=== PATIENT | female | born 1955 | race Caucasian/White ===

== ENCOUNTER → 2018-05-11 06:47 | Outpatient (CLI) | payer BC, SELFPAY ==
--- NOTE | 2018-05-11 06:51 | CT_ITS ---
HISTORY: FRONTAL SINUSITISFREQUENT INFECTIONS-WORSE SINCE OCTOBERDRAINAGE/CONGESTIONTAKES ALLERGY SHOTS TECHNIQUE: Helically acquired images were obtained of the paranasal sinuses. A radiation dose optimization technique was used for this scan. IV Contrast dosage and agent: None. COMPARISON: None FINDINGS: The paranasal sinuses are well developed and are clear. The ostiomeatal units are patent. The nasal septum shows no significant deformity. Nasal turbinates are unremarkable. The mastoids and middle ear cavities appear clear. Hyperostosis frontalis interna. CT/Sinus/Facial Bone IMPRESSION: Normal paranasal sinuses. Individualized dose optimization techniques were used for this CT. at 0725 Reported and signed by: Arnol Chowdhury MD Electronically Signed: Arnol Chowdhury, at 7:23 EST Tel , Service support ,
== END ==
PROVIDERS: Family Provider Student in an Organized Health Care Education/Training Program; PCP Student in an Organized Health Care Education/Training Program; Referring Provider Otolaryngology Otolaryngology/Facial Plastic Surgery; Visit Provider Otolaryngology Otolaryngology/Facial Plastic Surgery
DX: J32.9 Chronic sinusitis, unspecified (principal)
CPT/HCPCS: 70486

== ENCOUNTER → 2021-11-22 | Outpatient (CLI) | payer BC, SELFPAY ==
[2021-11-22 09:50] LABS: Hematocrit 44.7 % (37-47); Hemoglobin 15.6 g/dL (12.0-15.0); Mean Corp Hgb Conc 34.9 g/dL (32-36); Mean Corpuscular Hgb 32.1 pg (27.0-32.0); Mean Platelet Vol. 8.6 fl (6.2-12.0); Platelet Count 263 K/mm3 (150-450); RBC Distribution Width CV 11.8 % (11.6-14.6); RBC Distribution Width SD 40.2 fl (35.1-43.9); Red Blood Count 4.86 M/mm3 (4.2-5.4); White Blood Count 8.8 K/mm3 (4.4-11.0)
[2021-11-22 10:22] LABS: ALB/GLOB Ratio 1.2 RATIO (0.9-2.4); AST(SGOT) 32 U/L (15-37); Alanine Aminotransfer ALT/SGPT 34 U/L (13-56); Albumin, Serum 3.7 g/dL (3.2-5.0); Alkaline Phosphatase 142 U/L (45-117); Anion Gap 7 (5-15); BUN 21 mg/dL (7-18); Calcium,Total 8.8 mg/dL (8.5-10.1); Chloride 105 mmol/L (98-107); Creatinine, Serum 0.81 mg/dL (0.55-1.02); EST Glomerular Filtration Rate 75 mL/min (>60); Est Glom Filt Rate - Afr Amer 91 mL/min (>60); Globulin 3.2 g/dL (2.2-4.2); Glucose 127 mg/dL (74-106); Potassium 4.1 mmol/L (3.5-5.1); Protein, Total 6.9 g/dL (6.4-8.2); Sodium Level 139 mmol/L (136-145)
[2021-11-22 10:29] LABS: Carbamazepine (Tegretol) 8.4 ug/mL (4.0-12.0)
[2021-11-22 10:33] LABS: Vitamin D,25 Hydroxy 102.4 ng/mL
== END | disposition home or self-care (01) ==
LOC: LAB 09:15
PROVIDERS: PCP Student in an Organized Health Care Education/Training Program; Referring Provider Nurse Practitioner Family; Visit Provider Nurse Practitioner Family
DX: G50.0 Trigeminal neuralgia (principal); E55.9 Vitamin D deficiency, unspecified
CPT/HCPCS: 36415; 80053; 80156; 82306; 85027

== ENCOUNTER → 2022-11-12 | Outpatient (CLI) | payer BC, SELFPAY ==
[2022-11-12 10:30] LABS: Hematocrit 44.6 % (37-47); Hemoglobin 15.4 g/dL (12.0-15.0); Mean Corp Hgb Conc 34.5 g/dL (32-36); Mean Corpuscular Volume 92.5 fL (81-99); Mean Platelet Vol. 8.8 fl (6.2-12.0); Platelet Count 271 K/mm3 (150-450); RBC Distribution Width CV 11.7 % (11.6-14.6); RBC Distribution Width SD 40.2 fl (35.1-43.9); Red Blood Count 4.82 M/mm3 (4.2-5.4); White Blood Count 7.5 K/mm3 (4.4-11.0)
[2022-11-12 11:06] LABS: ALB/GLOB Ratio 1.3 RATIO (0.9-2.4); AST(SGOT) 29 U/L (15-37); Alanine Aminotransfer ALT/SGPT 30 U/L (13-56); Albumin, Serum 3.8 g/dL (3.2-5.0); Alkaline Phosphatase 129 U/L (45-117); BUN 15 mg/dL (7-18); Calcium,Total 9.3 mg/dL (8.5-10.1); Creatinine, Serum 0.75 mg/dL (0.55-1.02); EST Glomerular Filtration Rate 82 mL/min (>60); Est Glom Filt Rate - Afr Amer 99 mL/min (>60); Globulin 2.9 g/dL (2.2-4.2); Glucose 104 mg/dL (74-106); Protein, Total 6.7 g/dL (6.4-8.2); Sodium Level 141 mmol/L (136-145)
[2022-11-12 11:07] LABS: Anion Gap 6 (5-15); Chloride 109 mmol/L (98-107)
[2022-11-12 11:18] LABS: Carbamazepine (Tegretol) 8.6 ug/mL (4.0-12.0)
[2022-11-13 13:08] LABS: Vitamin D 1,25-Dihydroxy 40.6 pg/mL (24.8-81.5)
== END | disposition home or self-care (01) ==
LOC: MTLAB 09:11
PROVIDERS: PCP Student in an Organized Health Care Education/Training Program; Referring Provider Psychiatry & Neurology Neurology; Visit Provider Psychiatry & Neurology Neurology
DX: G50.0 Trigeminal neuralgia (principal); Z86.39 Personal history of other endocrine, nutritional and metabolic disease
CPT/HCPCS: 36415; 80053; 80156; 82652; 85027

== ENCOUNTER → 2024-02-09 | Outpatient (CLI) | payer BC, SELFPAY ==
[2024-02-09 10:13] LABS: Hematocrit 47.7 % (37-47); Hemoglobin 16.4 g/dL (12.0-15.0); Mean Corp Hgb Conc 34.4 g/dL (32-36); Mean Corpuscular Hgb 31.8 pg (27.0-32.0); Mean Corpuscular Volume 92.6 fL (81-99); Mean Platelet Vol. 9.1 fl (6.2-12.0); Platelet Count 248 K/mm3 (150-450); RBC Distribution Width CV 11.7 % (11.6-14.6); RBC Distribution Width SD 40.1 fl (35.1-43.9); Red Blood Count 5.15 M/mm3 (4.2-5.4); White Blood Count 9.5 K/mm3 (4.4-11.0)
[2024-02-09 11:18] LABS: ALB/GLOB Ratio 1.1 RATIO (0.9-2.4); AST(SGOT) 23 U/L (15-37); Alanine Aminotransfer ALT/SGPT 24 U/L (13-56); Alkaline Phosphatase 151 U/L (45-117); Anion Gap 7 (5-15); BUN 19 mg/dL (7-18); BUN/Creat Ratio 21.9 RATIO (10-20); Calcium,Total 9.5 mg/dL (8.5-10.1); Chloride 105 mmol/L (98-107); Creatinine, Serum 0.87 mg/dL (0.55-1.02); EST Glomerular Filtration Rate 69 mL/min (>60); Est Glom Filt Rate - Afr Amer 83 mL/min (>60); Globulin 3.8 g/dL (2.2-4.2); Glucose 117 mg/dL (74-106); Potassium 4.4 mmol/L (3.5-5.1); Protein, Total 7.8 g/dL (6.4-8.2); Sodium Level 137 mmol/L (136-145)
[2024-02-09 12:13] LABS: Carbamazepine (Tegretol) 9.3 ug/mL (4.0-12.0)
== END | disposition home or self-care (01) ==
PROVIDERS: PCP Student in an Organized Health Care Education/Training Program; Referring Provider Psychiatry & Neurology Neurology; Visit Provider Psychiatry & Neurology Neurology
DX: G50.0 Trigeminal neuralgia (principal)
CPT/HCPCS: 36415; 80053; 80156; 85027

== ENCOUNTER 2024-12-07 21:26 | Emergency (ER) | payer OTHER, BC, SELFPAY ==
[2024-12-07 21:27] VITALS: BP 181/88; PULSE 79; RESP 18; TEMP 36.8; O2SAT 98
--- NOTE | 2024-12-07 21:31 | ED.RN ---
arm wrapped with ABD pad and walter bandage in triage.
[2024-12-07 23:28] VITALS: BMI 22.8
--- OUTSIDE RECORDS SUMMARY | 2024-12-08 00:22 | XMS RPT_ITS | CCD ---
Author Organization [facility] Inform ion Partnership [facility] Care Team Providers Care Bleacher Lard Name Role Phone Brandon Boland DO Primary Care Provider [phone] Brandon Boland Referring Unavailable Boland, Brandon Primary Care Unavailable Baddour, Mic Attending Unavailable Boland, Brandon Primary Care Unavailable Baddour, Mic Attending Unavailable Boland, Brandon Referring Unavailable Boland, Brandon Primary Care Unavailable Wilfredur Mic Referring Unavailable Jo, Mic Attending Unavailable Brandon Boland DO Primary Care Provider Ángel MARKET RISK SPECIALIST.Ana WHITE Unavailable Linda MARKET RISK SPECIALIST.Juanita WHITE Unavailable BRANDON BOLAND L Referring Unavailable BOLAND, BRANDON L Primary Care Unavailable BOLAND, BRANDON L Referring Unavailable BOLNAD, BRANDON L Primary Care Unavailable BOLAND, BRANDON L Attending Unavailable BOLAND, BRANDON L Primary Care Unavailable BOLAND, BRANDON L Referring Unavailable BOLAND, BRANDON L Primary Care Unavailable BOLAND, BRANDON L Attending Unavailable BOLAND, BRANDON L Primary Care Unavailable BOLAND, BRANDON L Attending Unavailable BOLAND, BRANDON L Primary Care Unavailable Allergies Allergy Classification Reported Allergen(s) Allergy Type Date of Onset Reaction(s) Facility (20 sources) Seasonal allergy; Translations: [SEASONAL ALLERGIES] Propensity to adverse reactions 3 Other: See Comments [facility] Work Phone: Medications Current Medications Medication Drug Class(es) Dates Sig (Normalized) Sig (Original) aspirin 81 mg oral tablet (20 sources) Platelet Aggregation Inhibitor, Nonsteroidal Anti-inflammatory Drug Start: 09-11-2020 take 1 tablet by mouth once daily aspirin 81 mg tablet Active 81 MG PO DAILY September 11, 2020 11:19am Start: 01-17-2014 take 1 tablet by sima th once daily aspirin, enteric coated (ASPIRIN LOW DOSE) 81 mg EC tablet Take 1 tablet by mouth once daily. 0 01/17/2014 Active Comment on above: Take 1 tablet by sima once daily. azelastine hydrochloride 0.137 mg/actuat metered dose nasal spray (20 sources) Histamine-1 Receptor Antagonist Start: 1 End: 5 take 1 spray(s) nasal route twice daily azelastine 0.1% nasal spray Indications: Chronic otitis media of both ears with effusion Use 1 Excel in each nostril two times a day. 30 mL 2 08/31/2024 Active Comment on above: Use 1 Excel in each nostril twice daily. Use 1 Excel in each nostril two times a day. carBAMazepine 200 mg oral tablet (20 sources) Mood Stabilizer Start: 1 End: 2 take 200 mg by mouth twice daily Carbamazepine Active 200 MG PO TWICE A DAY 60 August 15, 2021 11:34am take 1 capsule by mo [facility] twice daily, then take 1 capsule by mouth every twelve hours carBAMazepine ER (CARBATROL) 200 mg 12 h r capsule Take 200 mg by mouth twice daily. Active Comment on above: Take 200 mg by mouth twice daily. cetirizine hydrochloride 10 mg oral tablet (1 source) Histamine-1 Receptor Antagonist Start: take 1 tablet by mouth once daily Cetirizine (Zyrtec) 10 mg tablet Active 10 MG PO DAILY September 11, 2020 11:18am cholecalciferol 1.25 mg oral capsule (2 sources) Vitamin D Start: End: take 1250 ug by mouth every week Cholecalciferol (Vitamin D3) Active 1250 MCG PO EVERY WEEK September 13, 2021 9:55am 12 hr guaiFENesin 600 mg extended release oral tablet (1 source) Start: take 1 tablet by mouth twice daily, then take 1 tablet by mouth every twelve hours Guaifenesin (Mucinex) 600 mg tablet extended release 12hr Active 600 MG PO TWICE A DAY September 11, 2020 11:20am lisinopril 10 mg oral tablet (20 sources) Angiotensin Converting Enzyme Inhibitor Start: 021 End: take 1 tablet by mouth once daily lisinopril (ZESTRIL) 10 mg tablet Indications: Essential hypertension, benign Take 1 tablet by mouth once daily. 90 tablet 3 05/06/2024 Active Comment on above: Take 1 tablet by sima th once daily. montelukast 10 mg oral tablet (20 sources) Leukotriene Receptor Antagonist Start: 022 End: take 1 tablet by mouth once daily at bedtime montelukast (SINGULAIR) 10 mg tablet Indications: Seasonal allergic rhinitis due to pollen Take 1 tablet by mouth daily at bedtime. 90 tablet 3 05/06/2024 Active Start: 05-07-2021 End: 02-25-2022 take 1 tablet by mouth once daily at bedtime montelukast (SINGULAIR) 10 mg tablet Indications: Seasonal allergic rhinitis due to pollen Take 1 tablet by mouth daily at bedtime. 30 tablet 2 02/25/2022 Active Comment on above: Take 1 tablet by sima th daily at bedtime. Ttrxirpaffwz-Ii-Rdp n-Minerals (Multiple Vitamin, Womens) tablet (1 source) Start: 09-11-2020 take 1 tablet by mouth once daily Zebmyfzrtqft-Ua-Uy on-Minerals (Multiple Vitamin, Womens) tablet Active 1 TABLET PO DAILY September 11, 2020 11:19am naproxen 500 mg oral tablet (20 sources) Nonsteroidal Anti-inflammatory Drug Start: 08-25-2019 take 1 tablet by mouth twice daily as needed for pain naproxen (NAPROSYN) 500 mg tablet Indications: Pain in right foot Take 1 tablet by mouth twice daily as needed (for pain/inflammation) . Take with food. 60 tablet 5 08/25/2019 Active Comment on above: Take 1 tablet by sima th twice daily as needed (for pain/inflammation). Take with food. Completed/Discontinued Medications Medication Drug Class(es) Dates Sig (Normalized) Sig (Original) predniSONE 10 mg oral tablet (4 sources) Start: 08-25-2020 End: 11-27-2021 take 1 tablet by mouth once daily for pain predniSONE (DELTASONE) 10 mg tablet Indications: Chronic otitis media of both ears with effusion Take 1 tablet by mouth once daily. for flare up of ear pain 7 tablet 1 08/25/2020 11/27/2021 Discontinued Comment on above: Take 1 tablet by sima th once daily. for flare up of ear pain Problems Active Problems Problem Classification Problem Date Documented Da te Episodic/Chronic Conditions associated with dizziness or vertigo (6 sources) Lightheadedness; Translations: [Dizziness and giddiness] Onset: 11-19-2024 11-02-2024 Episodic Disorders of lipid metabolism (20 sources) Dyslipidemia; Translations: [Hyperlipidemia, unspecified] Onset: 08-21-2018 08-21-2018 Chronic Essential hypertension (20 sources) Essential hypertension; Translations: [Essential (primary) hypertension] Onset: 01-03-2006 05-29-2021 Chronic Immunizations and screening for infectious disease (5 sources) Encounter for immunization; Translations: [Other specified vaccinations against streptococcus pneumoniae [pneumococcus]] Episodic Nutritional deficiencies (20 sources) Vitamin D deficiency; Translations: [Vitamin D deficiency, unspecified] Onset: 08-21-2018 08-21-2018 Chronic Other and unspecified benign neoplasm (20 sources) Hemangioma of liver; Translations: [Hemangioma of intra-abdominal structures] Onset: 01-17-2015 01-17-2015 Episodic Other bone disease and musculoskeletal deformities (2 sources) Disorder of skeletal system; Translations: [Disorder of bone, unspecified] 11-02-2024 Episodic Other bone disease and musculoskeletal deformities (1 source) Disorder of bone, unspecified; Translations: [Disorder of bone and cartilage] Onset: 11-02-2024 Episodic Other bone disease and musculoskeletal deformities (1 source) Disorder of cartilage, unspecified; Translations: [Disorder of bone and cartilage] Onset: 11-02-2024 Episodic Other liver diseases (20 sources) Liver cyst; Translations: [Other specified diseases of liver] Onset: 01-17-2015 01-17-2015 Chronic Other liver diseases (2 sources) Alkaline phosphatase raised; Translations: [Abnormal levels of other serum enzymes] Episodic Other nervous system disorders (1 source) Trigeminal neuralgia; Translations: [Trigeminal neuralgia] Episodic Other nervous system disorders (1 source) Trigeminal neuralgia; Translations: [Trigeminal neuralgia] Onset: 03-05-2024 Episodic Other upper respiratory disease (20 sources) Allergic rhinitis; Translations: [Allergic rhinitis, unspecified] 10-28-2019 Chronic Other upper respiratory disease (20 sources) Allergic rhinitis due to pollen; Translations: [Allergic rhinitis due to pollen] Onset: 11-22-2020 11-22-2020 Chronic Other upper respiratory disease (1 source) Congestion of nasal sinus; Translations: [Nasal congestion] 01-08-2023 Episodic Otitis media and related conditions (20 sources) Bilateral middle ear chronic mucoid otitis media; Translations: [Other chronic nonsuppurative otitis media, bilateral] Onset: 08-25-2020 Chronic Unclassified (1 source) Patient encounter status 11-02-2024 Past or Other Problems Problem Classification Problem Date Documented Da te Episodic/Chronic Diabetes mellitus without complication (20 sources) Impaired fasting glycemia; Translations: [Impaired fasting glucose] Onset: 08-21-2018 08-21-2018 Episodic Malaise and fatigue (20 sources) Fatigue; Translations: [Other fatigue] Onset: 11-27-2021 Episodic Other and unspecified benign neoplasm (1 source) Hemangioma of intra-abdominal structures; Translations: [Liver hemangioma] Onset: 01-17-2015 Episodic Other bone disease and musculoskeletal deformities (20 sources) Osteopenia; Translations: [Other specified disorders of bone density and structure, right thigh] Onset: 11-28-2021 12-17-2021 Episodic Other ear and sense organ disorders (20 sources) Bilateral earache; Translations: [Otalgia, bilateral] Onset: 11-22-2020 11-22-2020 Episodic Other screening for suspected conditions (not mental disorders or infectious disease) (20 sources) Mammography abnormal; Translations: [Other abnormal and inconclusive findings on diagnostic imaging of breast] Onset: 09-04-2015 09-04-2015 Episodic Other skin disorders (20 sources) Cyst of scalp; Translations: [Follicular cyst of the skin and subcutaneous tissue, unspecified] Onset: 05-14-2010 10-11-2010 Episodic Residual codes; unclassified (20 sources) Postmenopausal state; Translations: [Asymptomatic menopausal state] Onset: 05-29-2021 05-29-2021 Episodic Spondylosis; intervertebral disc disorders; other back problems (10 sources) Neck pain; Translations: [Cervicalgia] Onset: 05-05-2024 05-05-2024 Episodic Results Test Name Value Interpretation Reference Range Facility ECHO 11-19-2024 Echocardiography Echocardiography Report: Transthoracic Echo [facility] Date of service: 11/19/2024 7:53:18 AM SOURCER Ordering physician: BRANDON BOLAND Exam indication: Shortness of Breath Technologist: Tiffani Verduzco [facility] Interpreting physician: Ignacio Reddy MD PATIENT: Name: MISS SHEA MCLEAN : 1955 Age: 69 years Gender: F History of hypertension and dyslipidemia. Primary rhythm: sinus. Height: 165.00 cm BSA: 1.70 m Weight: 63.05 kg BMI: 23.2 kg/m Heart rate 78 bpm Blood pressure 188/72 mmHg Color Doppler was utilized to interrogate the cardiac valves assessed and spectral Doppler was utilized to determine the flow velocities and pressure gradients reported in this exam. Myocardial strain analysis was performed in this exam to aid in the assessment of cardiac function. MEASUREMENTS: Value Indexed Normal Max aortic dimension 3.4 cm Ao < 3.8 Left atrial volume 47 ml (biplane A-L) 28 ml/m Griselda <= 34 LV ID (diastole) 3.8 cm (2D) 2.25 cm/m LV ID (systole) 2.2 cm (2D) 1.30 cm/m IVS, leaflet tips 0.9 cm (2D) Posterior wall thickness 1.0 cm (2D) Left ventricular mass 114 g (2D) 67 g/m Global peak long strain -16.9 % LV stroke volume 51 ml (2D biplane) LV end diastolic volume 86 ml (2D biplane) 50.4 ml/m 29<=EDVi<62 LV end systolic volume 34 ml (2D biplane) 20.2 ml/m Ejection Fraction 60 % (2D biplane) EF > 54 FINDINGS: LEFT VENTRICLE The left ventricle is normal in size. Left ventricular systolic function is normal. Global LV myocardial strain is normal. Grade I left ventricular diastolic dysfunction. Mitral annular lateral E/e': 7.4. Mitral annular septal E/e': 11.1. Wall Motion: All scored segments are normal. RIGHT VENTRICLE The right ventricle is normal in size. Right ventricular systolic function is normal. RV systolic tissue Doppler velocity is 9.0 cm/s. Tricuspid annular displacement is 1.7 cm. Estimated right ventricular systolic pressure is 37 mmHg consistent with mild pulmonary hypertension. Estimated right atrial pressure is 3 mmHg (although IVC not seen). LEFT ATRIUM The left atrial cavity is normal in size. Pulmonary Veins: The pulmonary venous pattern showed normal systolic flow. RIGHT ATRIUM The right atrial cavity is normal in size. Inferior Vena Cava: The inferior vena cava appears normal measuring 1.4 cm. MITRAL VALVE The mitral valve leaflets are structurally normal. There is mild (1+) mitral valve regurgitation. The pressure half time is 61 msec. The peak mitral E/A ratio is 0.75. The average mitral E/e' ratio is 9.3. The mitral flow deceleration time is 211 msec. TRICUSPID VALVE The tricuspid valve leaflets are structurally normal. There is mild (1+) tricuspid valve regurgitation. AORTIC VALVE The aortic valve cusps are structurally normal. There is mild (1+) aortic valve regurgitation. Tricuspid aortic valve. The peak gradient is 7 mmHg (peak velocity = 134.6 cm/s). PULMONIC VALVE The pulmonic valve cusps are structurally normal. There is trace (trace - 1+) pulmonic valve regurgitation. AORTA The visualized aorta is normal in size. Measurements - Mid ascending aorta 3.4 cm. INTERATRIAL SEPTUM There is no evidence of intracardiac shunting as detected by Doppler. PERICARDIUM There is no pericardial effusion. CONCLUSIONS: - Exam indication: Shortness of Breath - The left ventricle is normal in size. Left ventricular systolic function is normal. EF = 60 5% (2D biplane) Grade I left ventricular diastolic dysfunction. - The right ventricle is normal in size. Right ventricular systolic function is normal. - There is mild mitral insufficiency present. - There is mild tricuspid insufficiency present. - There is mild aortic insufficiency present. - The patient has not had a prior [facility] echocardiographic exam for comparison. * * * Final * * * [facility] Image : [id number] Normal [facility] CNOVon 11-02-2024 CNOV Office Visit (FAMPWS ) SHEA MCLEAN ([id number]) 1955 F Date Time Provider Department 11/02/24 8:20 AM BRANDON BOLAND FAMPWS During your visit today, we recorded the following information about you: Temperature Pulse Respiration Blood pressure 96 degrees 76/minute 16/minute 130/80 Weight 63 kg Brandon Boland, DO 11/02/2024 11:57 AM Signed CC: Shea Mclean is a 69 year old female who presents to the office for follow up HPI: HTN, taking lisinopril, occasional LH and dizziness and fatigue, hasn't had recent cardiac testing. Does have a significant fmhx of heart disease in her maternal family and mother Allergies, getting immunotherapy/allergy shots regularly weekly with benefit. She is hopeful to retire within the next 6-12 months PAST MEDICAL HISTORY Diagnosis Date Abnormal mammogram of right breast 01/21/2023 Allergic rhinitis, cause unspecified on immunotherapy Essential hypertension Liver lesion 07/31/2014 hemangiomas and cysts, repeat MRI in Osteopenia of femoral neck, bilateral 11/2021 Osteopenia of lumbar spine 11/2021 PAST SURGICAL HISTORY Procedure Laterality Date BX BREAST W/DEVICE 1ST LESION STEREOTACTIC GUID Right 09/14/2015 BX OF BREAST; INCISIONAL Right 02/24/2023 Current Outpatient Medications Medication Sig azelastine 0.1% nasal spray Use 1 Excel in each nostril two times a day. lisinopril (ZESTRIL) 10 mg tablet Take 1 tablet by mouth once daily. montelukast (SINGULAIR) 10 mg tablet Take 1 tablet by mouth daily at bedtime. naproxen (NAPROSYN) 500 mg tablet Take 1 tablet by mouth twice daily as needed (for pain/inflammation). Take with food. carBAMazepine ER (CARBATROL) 200 mg 12 hr capsule Take 200 mg by mouth twice daily. aspirin, enteric coated (ASPIRIN LOW DOSE) 81 mg EC tablet Take 1 tablet by mouth once daily. No current facility-administered medications for this visit. ALLERGIES Allergen Reactions Seasonal Allergies Other: See Comments Sinus pressure, rhinitis, sneezing. Social History Tobacco Use Smoking status: Never Smokeless tobacco: Never Vaping Use Vaping status: Never Used Substance Use Topics Alcohol use: No Drug use: No ROS: See HPI PE: BP 130/80 Pulse 76 Temp (Src) 96 (Left Tympanic) Resp 16 Wt 139 lb (63.1kg) LMP 02/21/2011 Gen: AANDOX3, NAD, non-toxic appearing HEENT: PERRLA, EOMs intact b/l, nares without drainage, pharynx without erythema, exudate, lesions, or drainage. Uvula midline. MMM Neck: No LAD, no thyromegaly, no meningismus. ? Right carotid bruit CV: RRR, 1/6 HSM RUSB soft blowing murmur, normal s1s2 Lungs: CTA b/l, no wheezing Skin: No rashes, lesions, or wounds on exposed skin. No edema, normal peripheral pulses ASSESSMENT/PLAN: 1. Hypertension, essential - ICD9: 401.9, ICD10: I10 (primary diagnosis) - Controlled - Continue current medications - Recommend home blood pressure monitoring, to bring results to next visit - Encouraged sodium restriction, DASH or Mediterranean diet - Recommend regular aerobic exercise - ECG COMPLETE - ECHO - PERFLUTREN LIPID MICROSPHERES 1.1 MG/ML INJECTION IN NS 10 ML - SODIUM CHLORIDE 0.9 % (FLUSH) INJECTION SYRINGE - EXERCISE STRESS ECG (WITHOUT IMAGING) - US CAROTID ARTERIES [facility] 2. Encounter for screening mammogram for malignant neoplasm of breast - ICD9: V76.12, ICD10: Z12.31 - Set up for mammogram, yearly mammogram recommended - Encouraged monthly BSE - Increase calcium intake with supplements or by diet (goal of 3699-2965 mg/day - Set up for bone mineral density - Follow up for annual exam in one year. - NERY SCREENING W THUY 3. Disorder of bone and cartilage - ICD9: 733.90, ICD10: M89.9, M94.9 - set up for BMD AP Spine and Hip Unilateral - Reviewed the need for Calcium and Vitamin D supplements and weight bearing exercise as tolerated - DXA-AXIAL SKELETON - BD DXA TRABECULAR BONE SCORE (TBS) 4. Dyslipidemia - ICD9: 272.4, ICD10: E78.5 - Control undetermined, due for labs - Continue current medications - Counseled on healthy diet and regular exercise - ECG COMPLETE - ECHO - PERFLUTREN LIPID MICROSPHERES 1.1 MG/ML INJECTION IN NS 10 ML - SODIUM CHLORIDE 0.9 % (FLUSH) INJECTION SYRINGE - EXERCISE STRESS ECG (WITHOUT IMAGING) - US CAROTID ARTERIES [facility] - LIPID PANEL, FASTING 5. Vitamin D deficiency - ICD9: 268.9, ICD10: E55.9 - VITAMIN D 25 HYDROXY 6. IFG (impaired fasting glucose) - ICD9: 790.21, ICD10: R73.01 Diet controlled - HEMOGLOBIN A1C - COMPREHENSIVE METABOLIC PANEL - COMPLETE BLOOD COUNT AND DIFFERENTIAL 7. Liver hemangioma - ICD9: 228.04, ICD10: D18.03 stable 8. Lightheaded - ICD9: 780.4, ICD10: R42 ECG today ECHO and cardiac stress testing as ordered and labs Need for checking for cardiac risks due to symptoms and + Fmhx - ECG COMPLETE - ECHO - PERF (more content not included)... Normal [facility] ECG COMPLETEon 11-02-2024 ECG COMPLETE Ventricular Rate : 6 0 BPM Atrial Rate : 60 BPM P-R Interval : 170 ms QRS Duration : 80 ms Q-T Interval : 408 ms QTC Calculation(Bazett) : 408 ms Calculated P Soso : 34 degrees Calculated R Soso : 4 degrees Calculated T Soso : 38 degrees NORMAL SINUS RHYTHM POSSIBLE LEFT ATRIAL ENLARGEMENT BORDERLINE ECG Confirmed by MD MEDINA QARAB ([id number]) on 11/03/2024 2:04:30 PM NAME : SHEA MCLEAN PID : [id number] : 1955 Gender : Female Race : ORD : [id number] Procedure Date : Nov 02 2024 08:59:48 Edit Date : Nov 03 2024 14:04:35 Diagnosis: NORMAL SINUS RHYTHM POSSIBLE LEFT ATRIAL ENLARGEMENT BORDERLINE ECG Confirmed by MD MEDINA QARAB ([id number]) on 11/03/2024 2:04:30 PM Test Reason : I10 Hypertension, essential Location : 185 : WO Overread By : MD MEDINA QARAB Edited By : MD MEDINA QARAB Referred By : , Acquired by : Vibha NIXON [facility] CNOVon 05-05-2024 CNOV Office Visit (FAMPWS ) SHEA MCLEAN ([id number]) 1955 F Date Time Provider Department 05/05/24 9:00 AM BRANDON BOLANDPWS During your visit today, we recorded the following information about you: Temperature Pulse Respiration Blood pressure 97.5 degrees 80/minute 12/minute 128/82 Weight 66 kg Brandon Boland, DO 05/05/2024 9:46 AM Signed CC: Shea Mclean is a 68 year old female who presents to the office for follow up HPI: Recently had a low back pain flare up and then neck pain flare up and then struggled with right heel pain. Still some posterior neck discomfort. She states that she has had improvement in her symptoms with use of her chiropractor and adjustments that he has been doing for her. She has been off work due to the pain. Has also been using heating pad intermittently HTN, well controlled on Lisinopril, no CP or dyspnea or dizziness/Lh or edema. HPL, diet controlled Cholesterol, Total Date Value Ref Range Status 02/27/2024 193 <200 mg/dL Final Comment: <200 mg/dL, Desirable 200-239 mg/dL, Borderline high >239 mg/dL, High HDL Cholesterol Date Value Ref Range Status 02/27/2024 72 >39 mg/dL Final Comment: 40-59 mg/dL, Acceptable >59 mg/dL, High: Negative risk factor for coronary heart disease <40 mg/dL, Low: Positive risk factor for coronary heart disease LDL Cholesterol Date Value Ref Range Status 02/27/2024 103 (H) <100 mg/dL Final Comment: <100 mg/dL, Optimal 100-129 mg/dL, Near optimal/above optimal 130-159 mg/dL, Borderline high 160-189 mg/dL, High >189 mg/dL, Very high Secondary prevention optimal LDL Cholesterol levels are recommended to be < 70 mg/dL Triglyceride Date Value Ref Range Status 02/27/2024 90 <150 mg/dL Final Comment: <150 mg/dL, Normal 150-199 mg/dL, Borderline high 200-499 mg/dL, High >499 mg/dL, Very high Glucose (mg/dL) Date Value 02/27/2024 101 01/22/2021 106 Potassium (mmol/L) Date Value 02/27/2024 4.3 01/22/2021 4.6 Sodium (mmol/L) Date Value 02/27/2024 140 01/22/2021 138 Chloride (mmol/L) Date Value 02/27/2024 105 01/22/2021 103 CO2 (mmol/L) Date Value 02/27/2024 24 01/22/2021 25 Creatinine (mg/dL) Date Value 02/27/2024 0.78 01/22/2021 0.72 BUN (mg/dL) Date Value 02/27/2024 15 01/22/2021 12 Anion Gap (mmol/L) Date Value 02/27/2024 11 01/22/2021 10 Calcium (mg/dL) Date Value 01/22/2021 9.6 Calcium, Total (mg/dL) Date Value 02/27/2024 9.6 Protein, Total (g/dL) Date Value 02/27/2024 6.7 01/22/2021 7.3 Albumin (g/dL) Date Value 02/27/2024 4.3 01/22/2021 4.4 Bilirubin, Total (mg/dL) Date Value 02/27/2024 0.5 01/22/2021 0.3 Alkaline Phosphatase (U/L) Date Value 02/27/2024 127 01/22/2021 151 AST (U/L) Date Value 02/27/2024 30 01/22/2021 28 ALT (U/L) Date Value 02/27/2024 12 01/22/2021 17 Hemoglobin (g/dL) Date Value 02/27/2024 14.8 12/25/2020 15.9 12/25/2020 16.0 Hematocrit (%) Date Value 02/27/2024 43.8 12/25/2020 46.7 12/25/2020 47.2 WBC (k/uL) Date Value 02/27/2024 10.81 12/25/2020 8.48 12/25/2020 8.65 PAST MEDICAL HISTORY Diagnosis Date Abnormal mammogram of right breast 01/21/2023 Allergic rhinitis, cause unspecified on immunotherapy Essential hypertension Liver lesion 07/31/2014 hemangiomas and cysts, repeat MRI in Osteopenia of femoral neck, bilateral 11/2021 Osteopenia of lumbar spine 11/2021 PAST SURGICAL HISTORY Procedure Laterality Date BX BREAST W/DEVICE 1ST LESION STEREOTACTIC GUID Right 09/14/2015 BX OF BREAST; INCISIONAL Right 02/24/2023 Social History: Social History Tobacco Use Smoking status: Never Smokeless tobacco: Never Vaping Use Vaping status: Never Used Substance Use Topics Alcohol use: No Drug use: No FAMILY HISTORY Problem Relation Age of Onset Diabetes Mother Ischemic Heart Disease Mother 1975, age 60 Cancer Father STOMACH Hypertension Brother Breast Cancer Other none Colon Cancer Other none Current Outpatient prescriptions: azelastine 0.1% nasal spray Use 1 Excel in each nostril two times a day. montelukast (SINGULAIR) 10 mg tablet Take 1 tablet by mouth daily at bedtime. lisinopril (ZESTRIL) 10 mg tablet Take 1 tablet by mouth once daily. naproxen (NAPROSYN) 500 mg tablet Take 1 tablet by mouth twice daily as needed (for pain/inflammation). Take with food. carBAMazepine ER (CARBATROL) 200 mg 12 hr capsule Take 200 mg by mouth twice daily. aspirin, enteric coated (ASPIRIN LOW DOSE) 81 mg EC tablet Take 1 tablet by mouth once daily. Allergies: ALLERGIES Allergen Reactions Seasonal Allergies Other: See Comments Sinus pressure, rhinitis, sneezing. ROS: See HPI PE: 05/05/24 0845 BP: 128/82 Pulse: 80 Resp: 12 Temp: 36.4 ?C (97.5 ?F) TempSrc: Temporal Weight: (more content not included)... Normal [facility] Dave 04-13-2024 CHRISTOPHERN Telephone (FAMPWS) SHEA MCLEAN ([id number]) 1955 F Date Time Provider Department 04/13/24 BRANDON BOLAND ANGELIQUEPWS During your visit today, we recorded the following information about you: Brandon Boland, 04/13/2024 9:05 AM Signed Please make sure patient knows that overall her labs are stable Brandon DO Rashmi Laguerre [place], MA 04/13/2024 9:29 AM Signed Attempted to contact patient with no answer. Unable to leave a message. Please try again. EMILY Rosado Amanda, RN 04/17/2024 11:58 AM Signed Called Pt and no answer. Pt did not have voicemail set up. Will need to call back. MEGGAN Vasquez Kathryn, MA 04/19/2024 12:51 PM Signed Letter mailed to pt home of results. Lilly Altamirano MA Allergies As of Date: 04/13/2024 Noted Allergy Reaction SEASONAL ALLERGIES 07/06/2012 14 - Other: See Comments Comments: Sinus pressure, rhinitis, sneezing. Date Reviewed: 06/02/2023 Reviewed by: Shea Arevalo LPN - Fully Assessed Reason for Visit: Results [95] Prescriptions as of 04/19/2024 - azelastine 0.1% nasal spray Use 1 Excel in each nostril two times a day. - montelukast (SINGULAIR) 10 mg tablet Take 1 tablet by mouth daily at bedtime. - lisinopril (ZESTRIL) 10 mg tablet Take 1 tablet by mouth once daily. - naproxen (NAPROSYN) 500 mg tablet Take 1 tablet by mouth twice daily as needed (for pain/inflammation). Take with food. - carBAMazepine ER (CARBATROL) 200 mg 12 hr capsule Take 200 mg by mouth twice daily. - aspirin, enteric coated (ASPIRIN LOW DOSE) 81 mg EC tablet Take 1 tablet by mouth once daily. Meds Comments as of 01/17/2015: Allergy shots from [facility]. Problem List As Of Date 04/13/2024 Noted Resolved Allergic rhinitis [J30.9] Hypertension, essential [I10] 01/03/2006 Scalp cyst [L72.9] 05/14/2010 Routine gynecological examination [Z01.419] 10/11/2010 Class: Chronic Benign liver cyst [K76.89] 01/17/2015 Liver hemangioma [D18.03] 01/17/2015 Abnormal mammogram [R92.8] 09/04/2015 IFG (impaired fasting glucose) [R73.01] 08/21/2018 Dyslipidemia [E78.5] 08/21/2018 Vitamin D deficiency [E55.9] 08/21/2018 Chronic otitis media of both ears with effusion*08/25/2020 Seasonal allergic rhinitis due to pollen [J30.1]11/22/2020 Otalgia of both ears [H92.03] 11/22/2020 Post-menopausal [Z78.0] 05/29/2021 Fatigue [R53.83] 11/27/2021 Osteopenia of femoral neck, bilateral [M85.851,*11/2021 Essential hypertension, benign [I10] 05/29/2022 Letter Text Encounter Status:Closed by LILLY ALTAMIRANO on 04/19/24 Normal [facility] CNCOon 03-03-2024 CNCO HNO ID: [id number] Author: COORDINATOR, MAMMOGRAPHY, ? Service: ? Author Type: Physician Type: Letter Filed: 03/03/2024 11:06 Note Text: March 03, 2024 PID: [id number] Shea Mclean [address] [place] [address] Dear Ms. Mclean, We are pleased to inform you that the results of your recent breast imaging exam on 03/03/2024 are normal. Breast tissue can be either dense or not dense. Dense tissue makes it harder to find breast cancer on a mammogram and also raises the risk of developing breast cancer. Your breast tissue is not dense. Talk to your healthcare provider about breast density, risks for breast cancer, and your individual situation. Early detection of cancer is very important. We also understand recommendations regarding breast cancer screening are controversial. Please discuss with your primary care provider which strategy is best for you and whether a mammogram is right for you. Your imaging studies and report will be kept on file at [facility] as part of your permanent medical record and are available for your continuing care. Thank you for allowing us to help in meeting your health care needs. Sincerely, Dr. Amos Interpreting Radiologist [facility] (Normal over 40) Normal [facility] CNPNon 03-03-2024 CNPN Telephone (FAMPWS) SHEA MCLEAN ([id number]) 1955 F Date Time Provider Department 03/03[facility]24 [facility] your visit today, we recorded the following information about you: Vy Dimas PA-C 03/03/2024 2:51 PM Signed Please let patient know that her mammogram was normal. Recommend annual screening. Vy Dimas PA-C 03/03/2024 Ewelina Ann LPN 03/03/2024 2:58 PM Signed Phone rings and rings. Need to try back later. Hansa Caraballo MA 03/04/2024 12:47 PM Signed Attempted to contact pt x2. Line rings busy EMILY Rosado Linda M, LPN 03/08/2024 12:50 PM Signed Attempted to reach pt again, phone just rings and rings . Will need to try back again or send letter. Lilly Altamirano MA 03/08/2024 1:22 PM Signed Letter mailed to pt home of results. Lilly Altamirano MA Allergies As of Date: 03/03/2024 Noted Allergy Reaction SEASONAL ALLERGIES 07/06/2012 14 - Other: See Comments Comments: Sinus pressure, rhinitis, sneezing. Date Reviewed: 06/02/2023 Reviewed by: Shea Arevalo LPN - Fully Assessed Prescriptions as of 03/08/2024 - montelukast (SINGULAIR) 10 mg tablet Take 1 tablet by mouth daily at bedtime. - azelastine 0.1% nasal spray Use 1 Excel in each nostril two times a day. - lisinopril (ZESTRIL) 10 mg tablet Take 1 tablet by mouth once daily. - naproxen (NAPROSYN) 500 mg tablet Take 1 tablet by mouth twice daily as needed (for pain/inflammation). Take with food. - carBAMazepine ER (CARBATROL) 200 mg 12 hr capsule Take 200 mg by mouth twice daily. - aspirin, enteric coated (ASPIRIN LOW DOSE) 81 mg EC tablet Take 1 tablet by mouth once daily. Meds Comments as of 01/17/2015: Allergy shots from [facility]. Problem List As Of Date 03/03/2024 Noted Resolved Allergic rhinitis [J30.9] Hypertension, essential [I10] 01/03/2006 Scalp cyst [L72.9] 05/14/2010 Routine gynecological examination [Z01.419] 10/11/2010 Class: Chronic Benign liver cyst [K76.89] 01/17/2015 Liver hemangioma [D18.03] 01/17/2015 Abnormal mammogram [R92.8] 09/04/2015 IFG (impaired fasting glucose) [R73.01] 08/21/2018 Dyslipidemia [E78.5] 08/21/2018 Vitamin D deficiency [E55.9] 08/21/2018 Chronic otitis media of both ears with effusion*08/25/2020 Seasonal allergic rhinitis due to pollen [J30.1]11/22/2020 Otalgia of both ears [H92.03] 11/22/2020 Post-menopausal [Z78.0] 05/29/2021 Fatigue [R53.83] 11/27/2021 Osteopenia of femoral neck, bilateral [M85.851,*11/2021 Essential hypertension, benign [I10] 05/29/2022 Letter Text Encounter Status:Closed by LILLY ALTAMIRANO on 03/08/24 Normal [facility] DBT Breast - bilateral jessy royal 03-03-2024 IMPRESSION: NEGATIVE There is no mammographic evidence of malignancy. A 1 year screening mammogram is recommended. Luisa malagon/elvin:03/03/2024 11:06:47 [employer] Inspection And Repair Manager(s): RT Leopoldo(R)(M), [facility] letter sent: Normal over 40 Mammogram BI-RADS: Category 1: Negative Multiple national specialty organizations have released breast cancer screening guidelines for women at average risk for developing breast cancer - guidelines that are based on both evidence and opinion, yet differ on when to start and how often to screen for breast cancer. With representation from Breast Imaging, Internal Medicine, Women's Health, Family Medicine, and Medical/Surgical Oncology, the [facility] has carefully reviewed the data and reached the following consensus: 1) All women should engage in shared decision-making with their providers to decide when to start and how often to screen; 2) All women should have the opportunity to start screening mammography at age 40; 3) For women ages 45-55, we recommend annual screening mammograms; 4) For women ages 55 and over, we support both the transition from an annual to a biennial interval if this aligns more with patient's values and preferences, or continuation with annual screening; 5) All women should discuss with their providers when to stop screening mammograms. Supply Technician: Elvin Transcribe Date/Time: Mar 03 2024 9:24A Dictated by: LUISA AMOS MD This examination was interpreted and the report reviewed and electronically signed by: LUISA AMOS MD on Mar 03 2024 11:06AM [facility] DIVISION OF RADIOLOGY * * *Final Report* * * DATE OF EXAM: Mar 03 2024 9:44AM [facility] 0582 - [facility] SCREENING W THUY / PROCEDURE REASON: Encounter for screening mammogram for malignant neoplasm of breast * * * * Physician Interpretation * * * * RESULT: #[id number] - [facility] SCREENING W THUY BILATERAL DIGITAL SCREENING MAMMOGRAM TOMOSYNTHESIS WITH CAD: 03/03/2024 HISTORY: Encounter For Screening Mammogram For Malignant Neoplasm Of Breast /Screening Mammogram with THUY - patient reports NO breast symptoms /priors available for comparison. RESULT: TECHNIQUE: The study was acquired using full field digital technology and interpreted from soft copy. Digital Breast Tomosynthesis (DBT) images were obtained and used to assist in the interpretation of this examination. Current study was also evaluated with a Computer Aided Detection (CAD). Comparison is made to exams dated: 06/10/2023 mammogram, 11/28/2022 mammogram, and 08/28/2020 mammogram - [facility]. There are scattered areas of fibroglandular density. There are biopsy clips in the right breast. No significant masses, calcifications, or other findings are seen in either breast. There has been no significant interval change. DIVISION OF RADIOLOGY Provider, Lili Luis Eduardo camara Clyde - 03/03/2024 * * *Final Report* * * DATE OF EXAM: Mar 03 2024 9:44AM [facility] 0582 - [facility] SCREENING W THUY / PROCEDURE REASON: Encounter for screening mammogram for malignant neoplasm of breast * * * * Physician Interpretation * * * * RESULT: #[id number] - [facility] SCREENING W THUY BILATERAL DIGITAL SCREENING MAMMOGRAM TOMOSYNTHESIS WITH CAD: 03/03/2024 HISTORY: Encounter For Screening Mammogram For Malignant Neoplasm Of Breast /Screening Mammogram with THUY - patient reports NO breast symptoms /priors available for comparison. RESULT: TECHNIQUE: The study was acquired using full field digital technology and interpreted from soft copy. Digital Breast Tomosynthesis (DBT) images were obtained and used to assist in the interpretation of this examination. Current study was also evaluated with a Computer Aided Detection (CAD). Comparison is made to exams dated: 06/10/2023 mammogram, 11/28/2022 mammogram, and 08/28/2020 mammogram - [facility]. There are scattered areas of fibroglandular density. There are biopsy clips in the right breast. No significant masses, calcifications, or other findings are seen in either breast. There has been no significant interval change. IMPRESSION IMPRESSION: NEGATIVE There is no mammographic evidence of malignancy. A 1 year screening mammogram is recommended. Luisa malagon/elvin:03/03/2024 11:06:47 Car Inspection And Repair Manager(s): RT Leopoldo(Leona)(M), [facility] letter sent: Normal over 40 Mammogram BI-RADS: Category 1: Negative Multiple national specialty organizations have released breast cancer screening guidelines for women at average risk for developing breast cancer - guidelines that are based on both evidence and opinion, yet differ on when to start and how often to screen for breast cancer. With representation from Breast Imaging, Internal Medicine, Women's Health, Family Medicine, and Medical/Surgical Oncology, the [facility] has carefully reviewed the data and reached the following consensus: 1) All women should engage in shared decision-making with their providers to decide when to start and how often to screen; 2) All women should have the opportunity to start screening mammography at age 40; 3) For women ages 45-55, we recommend annual screening mammograms; 4) For women ages 55 and over, we support both the transition from an annual to a biennial interval if this aligns more with patient's values and preferences, or continuation with annual screening; 5) All women should discuss with their providers when to stop screening mammograms. Supply Technician: Elvin Transcribe Date/Time: Mar 03 2024 9:24A Dictated by: LUISA AMOS MD This examination was interpreted and the report reviewed and electronically signed by: LUISA AMOS MD on Mar 03 2024 11:06AM EST [facility] Radiology Study observation (narrative) [facility] DBT Breast - bilateral scree ningOrdered By: [facility] Provider on 03-03-2024 [facility] SCREENING W TOMOon 03-03 NERY SCREENING W THUY * * *Final Report* * * DATE OF EXAM: Mar 03 2024 9:44AM [facility] 0582 - [facility] SCREENING W THUY / PROCEDURE REASON: Encounter for screening mammogram for malignant neoplasm of breast * * * * Physician Interpretation * * * * RESULT: #[id number] - [facility] SCREENING W THUY BILATERAL DIGITAL SCREENING MAMMOGRAM TOMOSYNTHESIS WITH CAD: 03/03/2024 HISTORY: Encounter For Screening Mammogram For Malignant Neoplasm Of Breast /Screening Mammogram with THUY - patient reports NO breast symptoms /priors available for comparison. RESULT: TECHNIQUE: The study was acquired using full field digital technology and interpreted from soft copy. Digital Breast Tomosynthesis (DBT) images were obtained and used to assist in the interpretation of this examination. Current study was also evaluated with a Computer Aided Detection (CAD). Comparison is made to exams dated: 06/10/2023 mammogram, 11/28/2022 mammogram, and 08/28/2020 mammogram - [facility]. There are scattered areas of fibroglandular density. There are biopsy clips in the right breast. No significant masses, calcifications, or other findings are seen in either breast. There has been no significant interval change. IMPRESSION: NEGATIVE There is no mammographic evidence of malignancy. A 1 year screening mammogram is recommended. Luisa malagon/elvin:03/03/2024 11:06:47 Car Inspection And Repair Manager(s): Julissa Duarte RT(R)(M), [facility] letter sent: Normal over 40 Mammogram BI-RADS: Category 1: Negative Multiple national specialty organizations have released breast cancer screening guidelines for women at average risk for developing breast cancer - guidelines that are based on both evidence and opinion, yet differ on when to start and how often to screen for breast cancer. With representation from Breast Imaging, Internal Medicine, Women's Health, Family Medicine, and Medical/Surgical Oncology, the [facility] has carefully reviewed the data and reached the following consensus: 1) All women should engage in shared decision-making with their providers to decide when to start and how often to screen; 2) All women should have the opportunity to start screening mammography at age 40; 3) For women ages 45-55, we recommend annual screening mammograms; 4) For women ages 55 and over, we support both the transition from an annual to a biennial interval if this aligns more with patient's values and preferences, or continuation with annual screening; 5) All women should discuss with their providers when to stop screening mammograms. Supply Technician: Elvin Transcribe Date/Time: Mar 03 2024 9:24A Dictated by: LUISA AMOS MD This examination was interpreted and the report reviewed and electronically signed by: LUISA AMOS MD on Mar 03 2024 11:06AM EST [id number] Normal [facility] CBC W Auto Differential pane l (Bld)on 02-27-2024 Basophils (Bld) [#/Vol] 0.09 10*3/uL Normal <0.11 [facility] Comment on above: Order Comment: Speci men Type: BLOOD SPECIMEN Ordering Facility: [facility] Address: [address] [place] [address] Performed By: #### 2 132-9 #### [facility] CLIA [id number] [address] [place], [place] [address] [address] [place] Basophils/100 WBC (Bld) 0.8 % Normal [facility] Comment on above: Order Comment: Speci men Type: BLOOD SPECIMEN Ordering Facility: [facility] Address: [address] [place] [address] Performed By: #### 2 132-9 #### [facility] CLIA [id number] [address] [place] [address] [place] Differential cell count method Nom (Bld) Auto Normal [facility] Comment on above: Order Comment: Speci men Type: BLOOD SPECIMEN Ordering Facility: [facility] Address: [address] [place] [address] Performed By: #### 2 132-9 #### [facility] CLIA [id number] [address] [place] [address] [place] Eosinophils (Bld) [#/Vol] 0.16 10*3/uL Normal <0.46 [facility] Comment on above: Order Comment: Speci men Type: BLOOD SPECIMEN Ordering Facility: [facility] Address: [address] [place] [address] Performed By: #### 2 132-9 #### [facility] CLIA [id number] [address] [place] [address] [place] Eosinophils/100 WBC (Bld) 1.5 % Normal [facility] Comment on above: Order Comment: Speci men Type: BLOOD SPECIMEN Ordering Facility: [facility] Address: [address] [place] [address] Performed By: #### 2 132-9 #### [facility] CLIA [id number] [address] [place] [address] [place] Erythrocyte distribution width (RBC) [Ratio] 12.1 % Normal 11.5-15.0 [facility] Comment on above: Order Comment: Speci men Type: BLOOD SPECIMEN Ordering Facility: [facility] Address: [address] [place] [address] Performed By: #### 2 132-9 #### [facility] CLIA [id number] [address] [place] [address] [place] Hematocrit (Bld) [Volume fraction] 43.8 % Normal 36.0-46.0 [facility] Comment on above: Order Comment: Speci men Type: BLOOD SPECIMEN Ordering Facility: [facility] Address: [address] [place] [address] Performed By: #### 2 132-9 #### [facility] CLIA [id number] [address] [place] [address] [place] Hemoglobin (Bld) [Mass/Vol] 14.8 g/dL Normal 11.5-15.5 [facility] Comment on above: Order Comment: Speci men Type: BLOOD SPECIMEN Ordering Facility: [facility] Address: [address] [place] [address] Performed By: #### 2 132-9 #### [facility] CLIA [id number] [address] [place] [address] [place] Immature granulocytes (Bld) [#/Vol] 0.03 10*3/uL Normal <0.10 [facility] Comment on above: Order Comment: Speci men Type: BLOOD SPECIMEN Ordering Facility: [facility] Address: [address] [place] [address] Performed By: #### 2 132-9 #### [facility] CLIA [id number] [address] [place] [address] [place] Immature granulocytes/100 WBC (Bld) 0.3 % Normal [facility] Comment on above: Order Comment: Speci men Type: BLOOD SPECIMEN Ordering Facility: [facility] Address: [address] [place] [address] Performed By: #### 2 132-9 #### [facility] CLIA [id number] [address] [place] [address] [place] Lymphocytes (Bld) [#/Vol] 2.56 10*3/uL Normal 1.00-4.00 [facility] Comment on above: Order Comment: Speci men Type: BLOOD SPECIMEN Ordering Facility: [facility] Address: [address] [place] [address] Performed By: #### 2 132-9 #### [facility] CLIA [id number] [address] [place] [address] [place] Lymphocytes/100 WBC (Bld) 23.7 % Normal [facility] Comment on above: Order Comment: Speci men Type: BLOOD SPECIMEN Ordering Facility: [facility] Address: [address] [place] [address] Performed By: #### 2 132-9 #### [facility] CLIA [id number] [address] [place] [address] [place] MCH (RBC) [Entitic mass] 31.8 pg Normal 26.0-34.0 [facility] Comment on above: Order Comment: Speci men Type: BLOOD SPECIMEN Ordering Facility: [facility] Address: [address] [place] [address] Performed By: #### 2 132-9 #### [facility] CLIA [id number] [address] [place] [address] [place] MCHC (RBC) [Mass/Vol] 33.8 g/dL Normal 30.5-36.0 [facility] Comment on above: Order Comment: Speci men Type: BLOOD SPECIMEN Ordering Facility: [facility] Address: [address] [place] [address] Performed By: #### 2 132-9 #### [facility] CLIA [id number] [address] [place] [address] [place] MCV (RBC) [Entitic vol] 94.0 fL Normal 80.0-100.0 [facility] Comment on above: Order Comment: Speci men Type: BLOOD SPECIMEN Ordering Facility: [facility] Address: [address] [place] [address] Performed By: #### 2 132-9 #### [facility] CLIA [id number] [address] [place] [address] [place] Monocytes (Bld) [#/Vol] 0.88 10*3/uL High <0.87 [facility] Comment on above: Order Comment: Speci men Type: BLOOD SPECIMEN Ordering Facility: [facility] Address: [address] [place] [address] Performed By: #### 2 132-9 #### [facility] CLIA [id number] [address] [place] [address] [place] Monocytes/100 WBC (Bld) 8.1 % Normal [facility] Comment on above: Order Comment: Speci men Type: BLOOD SPECIMEN Ordering Facility: [facility] Address: [address] [place] [address] Performed By: #### 2 132-9 #### [facility] CLIA [id number] [address] [place] [address] [place] Neutrophils (Bld) [#/Vol] 7.09 10*3/uL Normal 1.45-7.50 [facility] Comment on above: Order Comment: Speci men Type: BLOOD SPECIMEN Ordering Facility: [facility] Address: [address] [place] [address] Performed By: #### 2 132-9 #### [facility] CLIA [id number] [address] [place] [address] [place] Neutrophils/100 WBC (Bld) 65.6 % Normal [facility] Comment on above: Order Comment: Speci men Type: BLOOD SPECIMEN Ordering Facility: [facility] Address: [address] [place] [address] Performed By: #### 2 132-9 #### [facility] CLIA [id number] [address] [place] [address] [place] Nucleated RBC (Bld) [#/Vol] 10*3/uL Normal <0.01 [facility] Comment on above: Order Comment: Speci men Type: BLOOD SPECIMEN Ordering Facility: [facility] Address: [address] [place] [address] Performed By: #### 2 132-9 #### [facility] CLIA [id number] [address] [place] [address] [place] Nucleated RBC/100 WBC (Bld) [Ratio] 0.0 /100 WBC Normal [facility] Comment on above: Order Comment: Speci men Type: BLOOD SPECIMEN Ordering Facility: [facility] Address: [address] [place] [address] Performed By: #### 2 132-9 #### [facility] CLIA [id number] [address] [place] [address] [place] Platelet mean volume (Bld) [Entitic vol] 9.4 fL Normal 9.0-12.7 [facility] Comment on above: Order Comment: Speci men Type: BLOOD SPECIMEN Ordering Facility: [facility] Address: [address] [place] [address] Performed By: #### 2 132-9 #### [facility] CLIA [id number] [address] [place] [address] [place] Platelets (Bld) [#/Vol] 254 10*3/uL Normal 150-400 [facility] Comment on above: Order Comment: Speci men Type: BLOOD SPECIMEN Ordering Facility: [facility] Address: [address] [place] [address] Performed By: #### 2 132-9 #### [facility] CLIA [id number] [address] [place] [address] [place] RBC (Bld) [#/Vol] 4.66 10*6/uL Normal 3.90-5.20 [facility] Comment on above: Order Comment: Speci men Type: BLOOD SPECIMEN Ordering Facility: [facility] Address: [address] [place] [address] Performed By: #### 2 132-9 #### [facility] CLIA [id number] [address] [place] [address] [place] WBC (Bld) [#/Vol] 10.81 10*3/uL Normal 3.70-11.00 [facility] Comment on above: Order Comment: Speci men Type: BLOOD SPECIMEN Ordering Facility: [facility] Address: [address] [place] [address] Performed By: #### 2 132-9 #### [facility] CLIA [id number] [address] [place] [address] [place] Comprehensive metabolic 2000 panelon 02-27-2024 Albumin [Mass/Vol] 4.3 g/dL Normal 3.9-4.9 [facility] Comment on above: Order Comment: Speci men Type: BLOOD SPECIMEN Ordering Facility: [facility] Address: [address] [place] [address] Performed By: #### 2 132-9 #### [facility] CLIA [id number] [address] [place] [address] [place] ALP [Catalytic activity/Vol] 127 U/L High 34-123 [facility] Comment on above: Order Comment: Speci men Type: BLOOD SPECIMEN Ordering Facility: [facility] Address: [address] [place] [address] Performed By: #### 2 132-9 #### [facility] CLIA [id number] [address] [place] [address] [place] ALT [Catalytic activity/Vol] 12 U/L Normal 7-38 [facility] Comment on above: Order Comment: Speci men Type: BLOOD SPECIMEN Ordering Facility: [facility] Address: [address] [place] [address] Performed By: #### 2 132-9 #### [facility] CLIA [id number] [address] [place] [address] [place] Anion gap [Moles/Vol] 11 mmol/L Normal 8-15 [facility] Comment on above: Order Comment: Speci men Type: BLOOD SPECIMEN Ordering Facility: [facility] Address: [address] [place] [address] Performed By: #### 2 132-9 #### [facility] CLIA [id number] [address] [place] [address] [place] AST [Catalytic activity/Vol] 30 U/L Normal 13-35 [facility] Comment on above: Order Comment: Speci men Type: BLOOD SPECIMEN Ordering Facility: [facility] Address: [address] [place] [address] Performed By: #### 2 132-9 #### [facility] CLIA [id number] [address] [place] [address] [place] Bilirubin [Mass/Vol] 0.5 mg/dL Normal 0.2-1.3 [facility] Comment on above: Order Comment: Speci men Type: BLOOD SPECIMEN Ordering Facility: [facility] Address: [address] [place] [address] Performed By: #### 2 132-9 #### [facility] CLIA [id number] [address] [place] [address] [place] Calcium [Mass/Vol] 9.6 mg/dL Normal 8.5-10.2 [facility] Comment on above: Order Comment: Speci men Type: BLOOD SPECIMEN Ordering Facility: [facility] Address: [address] [place] [address] Performed By: #### 2 132-9 #### [facility] CLIA [id number] [address] [place] [address] [place] Chloride [Moles/Vol] 105 mmol/L Normal 98-107 [facility] Comment on above: Order Comment: Speci men Type: BLOOD SPECIMEN Ordering Facility: [facility] Address: [address] [place] [address] Performed By: #### 2 132-9 #### [facility] CLIA [id number] [address] [place] [address] [place] CO2 [Moles/Vol] 24 mmol/L Normal 22-30 [facility] Comment on above: Order Comment: Speci men Type: BLOOD SPECIMEN Ordering Facility: [facility] Address: [address] [place] [address] Performed By: #### 2 132-9 #### [facility] CLIA [id number] [address] [place] [address] [place] Creatinine [Mass/Vol] 0.78 mg/dL Normal 0.58-0.96 [facility] Comment on above: Order Comment: Speci men Type: BLOOD SPECIMEN Ordering Facility: [facility] Address: [address] [place] [address] Performed By: #### 2 132-9 #### [facility] CLIA [id number] [address] [place] [address] [place] Creatinine and Glomerular filtration rate.predicted panel (S/P/Bld) 82 mL/min/1.73m??? Normal >=60 [facility] Comment on above: Order Comment: Speci men Type: BLOOD SPECIMEN Ordering Facility: [facility] Address: [address] [place] [address] Result Comment: Karina mated Glomerular Filtration Rate (eGFR) is calculated using the 2020 CKD-EPI creatinine equation. This equation utilizes serum creatinine, sex, and age as parameters. The creatinine assay has traceable calibration to isotope dilution-mass spectrometry. Refer to KDIGO guidelines for clinical interpretation. In patients with unstable renal function, e.g. those with acute kidney injury, the eGFR may not accurately reflect actual GFR. Performed By: #### 2 132-9 #### [facility] CLIA [id number] [address] [place] [address] [place] Glucose [Mass/Vol] 101 mg/dL High 74-99 [facility] Comment on above: Order Comment: Speci men Type: BLOOD SPECIMEN Ordering Facility: [facility] Address: [address] [place] [address] Result Comment: The [place] Diabetes Association (ADA) provides guidance for cutoff values for fasting glucose and random glucose. The ADA defines fasting as no caloric intake for at least 8 hours. Fasting plasma glucose results between 100 to 125 mg/dL indicate increased risk for diabetes (prediabetes). Fasting plasma glucose results greater than or equal to 126 mg/dL meet the criteria for diagnosis of diabetes. In the absence of unequivocal hyperglycemia, results should be confirmed by repeat testing. In a patient with classic symptoms of hyperglycemia or hyperglycemic crisis, random plasma glucose results greater than or equal to 200 mg/dL meet the criteria for diagnosis of diabetes. Reference: Standards of Medical Care in Diabetes 2016, [place] Diabetes Association. Diabetes Care. 2016.39(Suppl 1). Performed By: #### 2 132-9 #### [facility] CLIA [id number] [address] [place] [address] [place] Potassium [Moles/Vol] 4.3 mmol/L Normal 3.7-5.1 [facility] Comment on above: Order Comment: Speci men Type: BLOOD SPECIMEN Ordering Facility: [facility] Address: [address] [place] [address] Performed By: #### 2 132-9 #### [facility] CLIA [id number] [address] [place] [address] [place] Protein [Mass/Vol] 6.7 g/dL Normal 6.3-8.0 [facility] Comment on above: Order Comment: Speci men Type: BLOOD SPECIMEN Ordering Facility: [facility] Address: [address] [place] [address] Performed By: #### 2 132-9 #### [facility] CLIA [id number] [address] [place] [address] [place] Sodium [Moles/Vol] 140 mmol/L Normal 136-144 [facility] Comment on above: Order Comment: Speci men Type: BLOOD SPECIMEN Ordering Facility: [facility] Address: [address] [place] [address] Performed By: #### 2 132-9 #### [facility] CLIA [id number] [address] [place] [address] [place] Urea nitrogen [Mass/Vol] 15 mg/dL Normal 7-21 [facility] Comment on above: Order Comment: Prosper camara Type: BLOOD SPECIMEN Ordering Facility: [facility] Address: [address] [place] [address] Performed By: #### 2 132-9 #### [facility] CLIA [id number] [address] [place] [address] [place] HbA1c (Bld)on 02-27-2024 Average glucose Estimated from glycated hemoglobin (Bld) [Mass/Vol] 105 mg/dL Normal [facility] Comment on above: Order Comment: Prosper camara Type: BLOOD SPECIMEN Ordering Facility: [facility] Address: [address] [place] [address] Result Comment: eAG: (Estimated average glucose) is a calculated value from HgbA1c and is direct customer service representative of the average blood glucose level in the last 2-3 month period. Performed By: #### 5 5454-3 #### [facility] CLIA [id number] [address] [place] [address] [place] HbA1c (Bld) [Mass fraction] 5.3 % Normal 4.3-5.6 [facility] Comment on above: Order Comment: Prosper camara Type: BLOOD SPECIMEN Ordering Facility: [facility] Address: [address] [place] [address] Result Comment: [place] Diabetes Association guidelines indicate that patients with HgbA1c in the range 5.7-6.4% are at increased risk for development of diabetes, and intervention by lifestyle modification may be beneficial. HgbA1c greater or equal to 6.5% is considered diagnostic of diabetes. Performed By: #### 5 5454-3 #### [facility] CLIA [id number] [address] [place] [address] [place] Lipid 1996 panelon 4 Cholesterol [Mass/Vol] 193 mg/dL Normal <200 [facility] Comment on above: Order Comment: Prosper camara Type: BLOOD SPECIMEN Ordering Facility: [facility] Address: [address] [place] [address] Result Comment: <200 mg/dL, Desirable 200-239 mg/dL, Borderline high >239 mg/dL, High Performed By: #### 2 132-9 #### [facility] CLIA [id number] [address] [place] [address] [place] Cholesterol in HDL [Mass/Vol] 72 mg/dL Normal >39 [facility] Comment on above: Order Comment: Prosper men Type: BLOOD SPECIMEN Ordering Facility: [facility] Address: [address] [place] [address] Result Comment: 40-5 9 mg/dL, Acceptable >59 mg/dL, High: Negative risk factor for coronary heart disease <40 mg/dL, Low: Positive risk factor for coronary heart disease Performed By: #### 2 132-9 #### [facility] CLIA [id number] [address] [place] [address] [place] Cholesterol in LDL [Mass/Vol] 103 mg/dL High <100 [facility] Comment on above: Order Comment: Prosper camara Type: BLOOD SPECIMEN Ordering Facility: [facility] Address: [address] [place] [address] Result Comment: <100 mg/dL, Optimal 100-129 mg/dL, Near optimal/above optimal 130-159 mg/dL, Borderline high 160-189 mg/dL, High >189 mg/dL, Very high Secondary prevention optimal LDL Cholesterol levels are recommended to be < 70 mg/dL Performed By: #### 2 132-9 #### [facility] CLIA [id number] [address] [place] [address] [place] Cholesterol in LDL/Cholesterol in HDL [Mass ratio] 1.43 {ratio} Normal <2.54 [facility] Comment on above: Order Comment: Prosper men Type: BLOOD SPECIMEN Ordering Facility: [facility] Address: [address] [place] [address] Result Comment: Refe rence: 1. National Cholesterol Education Program ATP III Guideline At-A-Glance Quick Desk Reference: National Heart, Lung, and Blood [place]. National Institutes of Health. 2001: NIH Publication No. 01-3305. 2. An International Atherosclerosis Society position paper: global recommendations for the management of dyslipidemia: executive summary, Atherosclerosis. 2014: 232(2):410-413. Performed By: #### 2 132-9 #### [facility] CLIA [id number] [address] [place] [address] [place] Cholesterol in VLDL [Mass/Vol] 18 mg/dL Normal <30 [facility] Comment on above: Order Comment: Prosper camara Type: BLOOD SPECIMEN Ordering Facility: [facility] Address: [address] [place] [address] Performed By: #### 2 132-9 #### [facility] CLIA [id number] [address] [place] [address] [place] Cholesterol non HDL [Mass/Vol] 121 mg/dL Normal <130 [facility] Comment on above: Order Comment: Prosper camara Type: BLOOD SPECIMEN Ordering Facility: [facility] Address: [address] [place] [address] Result Comment: <130 mg/dL, Optimal 130-159 mg/dL, Near optimal/above optimal 160-189 mg/dL, Borderline high 190-219 mg/dL, High >219 mg/dL, Very high Secondary prevention optimal non HDL Cholesterol levels are recommended to be <100 mg/dL Performed By: #### 2 132-9 #### [facility] CLIA [id number] [address] [place] [address] [place] Cholesterol.total/Cho lesterol in HDL [Mass ratio] 2.68 {ratio} Normal <5.10 [facility] Comment on above: Order Comment: Prosper camara Type: BLOOD SPECIMEN Ordering Facility: [facility] Address: [address] [place] [address] Performed By: #### 2 132-9 #### [facility] CLIA [id number] [address] [place] [address] [place] FASTING TIME 12 hrs Normal [facility] Comment on above: Order Comment: Speci men Type: BLOOD SPECIMEN Ordering Facility: [facility] Address: [address] [place] [address] Performed By: #### 2 132-9 #### [facility] CLIA [id number] [address] [place] [address] [place] Triglyceride [Mass/Vol] 90 mg/dL Normal <150 [facility] Comment on above: Order Comment: Speci men Type: BLOOD SPECIMEN Ordering Facility: [facility] Address: [address] [place] [address] Result Comment: <150 mg/dL, Normal 150-199 mg/dL, Borderline high 200-499 mg/dL, High >499 mg/dL, Very high Performed By: #### 2 132-9 #### [facility] CLIA [id number] [address] [place] [address] [place] Magnesium SerPl-mCncon 02-26 Magnesium [Mass/Vol] 1.9 mg/dL Normal 1.7-2.3 [facility] Comment on above: Order Comment: Speci men Type: BLOOD SPECIMEN Ordering Facility: [facility] Address: [address] [place] [address] Performed By: #### 2 132-9 #### [facility] CLIA [id number] [address] [place] [address] [place] TSH SerPl-aCncon 02-27-2024 TSH Qn 3.000 m[IU]/L Normal 0.270-4.200 [facility] Comment on above: Order Comment: Speci men Type: BLOOD SPECIMEN Ordering Facility: [facility] Address: [address] [place] [address] Performed By: #### 2 132-9 #### [facility] CLIA [id number] [address] [place] [address] [place] Vit B12 SerPl-mCncon 024 Cobalamin (Vitamin B12) [Mass/Vol] 746 pg/mL Normal 232-1245 [facility] Comment on above: Order Comment: Speci men Type: BLOOD SPECIMEN Ordering Facility: [facility] Address: [address] [place] [address] Performed By: #### 2 132-9 #### [facility] CLIA [id number] [address] [facility] [id number] [address] [place] CBC-Complete Blood Cnt No Di ffon 02-09-2024 Erythrocyte distribution width (RBC) [Ratio] 11.7 % Normal 11.6-14.6 [facility] Comment on above: Performed By: #### L 500.4050, L100.0500, L501.7900 #### [facility] [address] [place], [address] Hematocrit (Bld) [Volume fraction] 47.7 % High 37-47 [facility] Comment on above: Performed By: #### L 500.4050, L100.0500, L501.7900 #### [facility] [address] [place], [address] Hemoglobin (Bld) [Mass/Vol] 16.4 g/dL High 12.0-15.0 [facility] Comment on above: Performed By: #### L 500.4050, L100.0500, L501.7900 #### [facility] [address] [place], [address] MCH (RBC) [Entitic mass] 31.8 pg Normal 27.0-32.0 [facility] Comment on above: Performed By: #### L 500.4050, L100.0500, L501.7900 #### [facility] [address] [place], [address] MCHC (RBC) [Mass/Vol] 34.4 g/dL Normal 32-36 [facility] Comment on above: Performed By: #### L 500.4050, L100.0500, L501.7900 #### [facility] [address] [place], [address] MCV (RBC) [Entitic vol] 92.6 fL Normal 81-99 [facility] Comment on above: Performed By: #### L 500.4050, L100.0500, L501.7900 #### [facility] [address] [place], [address] Platelet mean volume (Bld) [Entitic vol] 9.1 fL Normal 6.2-12.0 [facility] Comment on above: Performed By: #### L 500.4050, L100.0500, L501.7900 #### [facility] [address] [place], [address] Platelets (Bld) [#/Vol] 248 10*3/uL Normal 150-450 [facility] Comment on above: Performed By: #### L 500.4050, L100.0500, L501.7900 #### [facility] [address] [place], [address] RBC (Bld) [#/Vol] 5.15 10*6/uL Normal 4.2-5.4 [facility] Comment on above: Performed By: #### L 500.4050, L100.0500, L501.7900 #### [facility] [address] [place], [address] RDW SD 40.1 fl Normal 35.1-43.9 [facility] Comment on above: Performed By: #### L 500.4050, L100.0500, L501.7900 #### [facility] [address] [place], [address] WBC (Bld) [#/Vol] 9.5 10*3/uL Normal 4.4-11.0 [facility] Comment on above: Performed By: #### L 500.4050, L100.0500, L501.7900 #### [facility] [address] [place], [address] Carbamazepine (Tegretol)on 0 02-09-2024 CARBAMAZEPINE 9.3 ug/mL Normal 4.0-12.0 [facility] Comment on above: Performed By: #### L 500.4050, L100.0500, L501.7900 #### [facility] [address] [place], [address] Comprehensive Metabolic Prof ilon 02-09-2024 Albumin [Mass/Vol] 4.0 g/dL Normal 3.2-5.0 [facility] Comment on above: Performed By: #### L 500.4050, L100.0500, L501.7900 #### [facility] [address] [place], [address] Albumin/Globulin [Mass ratio] 1.1 {ratio} Normal 0.9-2.4 [facility] Comment on above: Performed By: #### L 500.4050, L100.0500, L501.7900 #### [facility] [address] [place], [address] ALK P 151 U/L High 45-117 [facility] Comment on above: Performed By: #### L 500.4050, L100.0500, L501.7900 #### [facility] [address] [place], [address] ALT [Catalytic activity/Vol] 24 U/L Normal 13-56 [facility] Comment on above: Performed By: #### L 500.4050, L100.0500, L501.7900 #### [facility] [address] [place], [address] AST [Catalytic activity/Vol] 23 U/L Normal 15-37 [facility] Comment on above: Performed By: #### L 500.4050, L100.0500, L501.7900 #### [facility] [address] [place], [address] Bilirubin [Mass/Vol] 0.40 mg/dL Normal 0.20-1.00 [facility] Comment on above: Result Comment: For patients on eltrombopag therapy, use of Dimension [place] TBIL is not recommended. Performed By: #### L 500.4050, L100.0500, L501.7900 #### [facility] [address] [place], [address] BUN/CRE 21.9 RATIO High 10-20 [facility] Comment on above: Performed By: #### L 500.4050, L100.0500, L501.7900 #### [facility] [address] [place], [address] CA,Total 9.5 mg/dL Normal 8.5-10.1 [facility] Comment on above: Performed By: #### L 500.4050, L100.0500, L501.7900 #### [facility] [address] [place], [address] Chloride [Moles/Vol] 105 mmol/L Normal 98-107 [facility] Comment on above: Performed By: #### L 500.4050, L100.0500, L501.7900 #### [facility] [address] [place], [address] CO2 [Moles/Vol] 25.0 mmol/L Normal 21.0-32.0 [facility] Comment on above: Performed By: #### L 500.4050, L100.0500, L501.7900 #### [facility] [address] [place], [address] Creatinine [Mass/Vol] 0.87 mg/dL Normal 0.55-1.02 [facility] Comment on above: Result Comment: The validity of the calculated GFR GFRAA in patients over 70 years has not been determined. Clinical correlation is essential. Performed By: #### L 500.4050, L100.0500, L501.7900 #### [facility] [address] [place], [address] EST GFR - AA 83 mL/min Normal >60 [facility] Comment on above: Result Comment: Afri can Cymro GFR Calc Performed By: #### L 500.4050, L100.0500, L501.7900 #### [facility] [address] [place], [address] GAP 7 Normal 5-15 [facility] Comment on above: Performed By: #### L 500.4050, L100.0500, L501.7900 #### [facility] [address] [place], [address] GFR/1.73 sq M.predicted among non-blacks MDRD (S/P/Bld) [Vol rate/Area] 69 mL/min/{1.73_m2} Normal >60 [facility] Comment on above: Result Comment: Non- GFR Calc Performed By: #### L 500.4050, L100.0500, L501.7900 #### [facility] [address] [place], [address] Globulin (S) [Mass/Vol] 3.8 g/dL Normal 2.2-4.2 [facility] Comment on above: Performed By: #### L 500.4050, L100.0500, L501.7900 #### [facility] [address] [place], [address] Glucose [Mass/Vol] 117 mg/dL High 74-106 [facility] Comment on above: Result Comment: Fast ing Glucose result from 100 to 125 mg/dL suggests IMPAIRED HOMEOSTASIS per A.D.A. criteria. Performed By: #### L 500.4050, L100.0500, L501.7900 #### [facility] [address] [place], [address] Potassium [Moles/Vol] 4.4 mmol/L Normal 3.5-5.1 [facility] Comment on above: Performed By: #### L 500.4050, L100.0500, L501.7900 #### [facility] [address] [place], [address] Sodium [Moles/Vol] 137 mmol/L Normal 136-145 [facility] Comment on above: Performed By: #### L 500.4050, L100.0500, L501.7900 #### [facility] [address] [place], [address] T PROT 7.8 g/dL Normal 6.4-8.2 [facility] Comment on above: Performed By: #### L 500.4050, L100.0500, L501.7900 #### [facility] [address] [place], [address] Urea nitrogen [Mass/Vol] 19 mg/dL High 7-18 [facility] Comment on above: Performed By: #### L 500.4050, L100.0500, L501.7900 #### [facility] [address] [place], [address] Neurology Visit Reporton Neurology Visit Report [facility] [address], [address] [place] [address] OFFICE VISIT Date of Service: 02/09/24 MR#: [id number] Acct: [id number] Name: SHEA MCLEAN Rep #: [id number] : 1955 Provider: Dr. Mic masterson MD Age/Sex: 68/F Location: [facility]. Status: Signed HPI [facility] Chief Complaint: Details: Interim History: Shea returns for follow-up. She has a history of hypertension and trigeminal neuralgia. Around 2014, she began to experience right maxillary region aching pain that also had a sharp component. The pain was nearly continuous. She was unaware of any clear precipitating event. Chewing food on the right side of the mouth and brushing her right-sided teeth were triggers for her pain. She denied having numbness, weakness, vision change or headaches. She has mild left-sided hearing loss and tinnitus. A head MRI in 2015 did not reveal intracranial pathology. She underwent neurological evaluation in 2015 and was diagnosed with right trigeminal neuralgia. Carbamazepine was initiated at that time and she has had a significant reduction of her pain. She is tolerating carbamazepine well. She now experiences only mild and occasional trigeminal neuralgia pain that occurs only if she misses a dose of her medication or is late in taking a dose. She has been satisfied with her current level of symptom control. Her prior labs revealed a vitamin D deficiency, and in January 2021 she was started on vitamin D3 50,000 units once weekly. Her vitamin D level was elevated (102.4) in October 2021. Her dose of vitamin D was reduced to 2000 IU daily. A subsequent vitamin D level checked earlier in 2022 was normal. She reported that she has osteopenia. She has taken a calcium supplement. Physical Exam: Neuro: The patient is awake and alert and responds appropriately; speech is fluent Neck: No bruits Heart: Regular rate and rhythm Supplemental Info Brain MRI (03/26/2016): No suspicious abnormalities of the seventh and eighth nerve cranial nerves. No suspicious abnormalities of the Meckel's cave cisterns. No enhancing lesions of the trigeminal nerve pathways. Normal size of the ventricles and extra-axial spaces for the patient's age. Normal white matter tracts of the supratentorial brain. Right parasagittal convexity scalp is dark on T1 and T2. This is probably small calcified cephalhematoma. IMPRESSION: 1. Normal MRI of the brain and the trigeminal nerve pathways with and without contrast. 2. Probable small right parasagittal convexity scalp calcified cephalhematoma. These images were reviewed on 09/12/2020. Facial/sinus CT (05/11/2018): Normal paranasal sinuses. Labs (12/25/2020): CMP: Alk phos 140 (H), AST 70 (H), glucose 113 (H) TSH: Normal T3: Normal Free T4: Normal Lipid profile: Total cholesterol 242 (H), LDL 150 (H), non-HDL 176 (H) CBCD: Hemoglobin 15.9 (H), hematocrit 46.7 (H) Hemoglobin A1c: 5.4% (normal) Vitamin D: 21.7 (L) Labs (01/22/2021): CMP: Alk phos 151 (H), glucose 106 (H) Labs (11/22/2021): CBC: Hemoglobin 15.6 (H) CMP: BUN 21 (H), glucose 127 (H), alk phos 142 (H) Vitamin D: 102.4 (H) Carbamazepine level: 8.4 (within therapeutic range of 4???12) CBC, CMP, vitamin D (11/12/2022): Hemoglobin 15.4 (high) Carbamazepine level (11/12/2022): 8.6 (in therapeutic range) Assessment and Plan Assessment and Plan (1) Trigeminal neuralgia of right side of face: Status: Chronic Orders: Orders Comprehensive Metabolic Profil Today G50.0 - Trigeminal neuralgia CBC-Complete Blood Cnt No Diff Today G50.0 - Trigeminal neuralgia Carbamazepine (Tegretol) Today G50.0 - Trigeminal neuralgia Medications: Refilled carbamazepine 200 mg PO BID 180 tabs 3RF Plan Details Additional Comments: The patient has right trigeminal neuralgia in a V2 distribution. ???Her trigeminal neuralgia pain is now well controlled with carbamazepine and she now experiences only mild and occasional facial pain that occurs only if she misses a dose or is late in taking a dose. She has been satisfied with her current level of symptom control. She has tolerated carbamazepine well. - Carbamazepine 200 mg 1 tablet twice daily will be continued. - A CBC, CMP and carbamazepine level will be in checked. I will have her return for reassessment in 1 year. Intake Vital Signs 05/14/23 09:17 05/14/23 09:44 02/09/24 08:25 Height 5 ft 5 in 5 ft 5 in 5 ft 5 in Weight: 151 lb 149 lb 3 oz BMI 25.1 24.8 BP 140/80 H 144/86 H Blood Pressure Location Lt brachial Lt brachial Position Sitting Sitting Respiration 17 16 Pulse 85 86 Pulse Source Monitor Monitor Temp 98.4 F 98.2 F Temp Source Temporal Temporal Pulse Oximetry (%) 98 97 Oxygen Delivery Method room air room air Intake Visit Reasons: 9 MO FU Chief Complaint: Garbage Person Required: No Accompanie (more content not included)... Normal [facility] CNOVon 12-02-2023 CN Office Visit (FAMPWS ) SHEA MCLEAN ([id number]) 1955 F Date Time Provider Department 12/02/23 8:20 [facility] During your visit today, we recorded the following information about you: Temperature Pulse Respiration Blood pressure 97 degrees 76/minute 16/minute 138/82 Weight 66.2 kg Brandon Boland, DO 12/02/2023 5:23 PM Signed CC: Shea Mclean is a 68 year old female who presents to the office for follow up HPI: Overall she is doing well. Has continued to struggle with her nasal congestion and PND symptoms and rhinorrhea with her allergies to dust and working at [employer]. Likely to plan on chcf by spring 2024. She is looking forward to this HTN, well controlled on Lisinopril, no CP or dyspnea or dizziness/Lh or edema. HPL, diet controlled Due for fasting labs Has some fatigue PAST MEDICAL HISTORY Diagnosis Date Abnormal mammogram of right breast 01/21/2023 Allergic rhinitis, cause unspecified on immunotherapy Essential hypertension Liver lesion 07/31/2014 hemangiomas and cysts, repeat MRI in -05/2015 Osteopenia of femoral neck, bilateral 11/2021 Osteopenia of lumbar spine 11/2021 PAST SURGICAL HISTORY Procedure Laterality Date BX BREAST W/DEVICE 1ST LESION STEREOTACTIC GUID Right 09/14/2015 BX OF BREAST; INCISIONAL Right 02/24/2023 Current Outpatient Medications Medication Sig azelastine 0.1% nasal spray Use 1 Excel in each nostril two times a day. montelukast (SINGULAIR) 10 mg tablet Take 1 tablet by mouth daily at bedtime. lisinopril (ZESTRIL) 10 mg tablet Take 1 tablet by mouth once daily. naproxen (NAPROSYN) 500 mg tablet Take 1 tablet by mouth twice daily as needed (for pain/inflammation). Take with food. carBAMazepine ER (CARBATROL) 200 mg 12 hr capsule Take 200 mg by mouth twice daily. aspirin, enteric coated (ASPIRIN LOW DOSE) 81 mg EC tablet Take 1 tablet by mouth once daily. No current facility-administered medications for this visit. ALLERGIES Allergen Reactions Seasonal Allergies Other: See Comments Sinus pressure, rhinitis, sneezing. Social History Tobacco Use Smoking status: Never Smokeless tobacco: Never Vaping Use Vaping Use: Never used Substance Use Topics Alcohol use: No Drug use: No ROS: See HPI PE: BP 138/82 Pulse 76 Temp (Src) 97 (Left Tympanic) Resp 16 Wt 146 lb (66.2kg) LMP 02/21/2011 Gen: AANDOX3, NAD, non-toxic appearing HEENT: PERRLA, EOMs intact b/l, nares without drainage, pharynx without erythema, exudate, lesions, or drainage. Uvula midline. MMM, EAC and TM wnl Neck: No LAD, no thyromegaly, no meningismus. CV: RRR, no murmur Lungs: CTA b/l, no wheezing Skin: No rashes, lesions, or wounds on exposed skin. No edema, normal pulses Abd: soft,NT, ND, normal BS, no masses ASSESSMENT/PLAN: 1. Hypertension, essential - ICD9: 401.9, ICD10: I10 (primary diagnosis) - Controlled - Continue current medications - Recommend home blood pressure monitoring, to bring results to next visit - Encouraged sodium restriction, DASH or Mediterranean diet - Recommend regular aerobic exercise - THYROID STIMULATING HORMONE 2. Liver hemangioma - ICD9: 228.04, ICD10: D18.03 stable 3. IFG (impaired fasting glucose) - ICD9: 790.21, ICD10: R73.01 Diet controlled Recheck labs as ordered. - HEMOGLOBIN A1C - THYROID STIMULATING HORMONE - MAGNESIUM - VITAMIN B12 4. Dyslipidemia - ICD9: 272.4, ICD10: E78.5 - Control undetermined, due for labs - Counseled on healthy diet and regular exercise - COMPREHENSIVE METABOLIC PANEL - COMPLETE BLOOD COUNT AND DIFFERENTIAL - LIPID PANEL BASIC - THYROID STIMULATING HORMONE 5. Encounter for screening mammogram for malignant neoplasm of breast - ICD9: V76.12, ICD10: Z12.31 - Set up for mammogram, yearly mammogram recommended - Encouraged monthly BSE - NERY SCREENING W THUY 6. Vitamin D deficiency - ICD9: 268.9, ICD10: E55.9 Continue supplement 7. Fatigue, unspecified type - ICD9: 780.79, ICD10: R53.83 stable Brandon Boland DO Return if no improvement. Follow up with Brandon Boland DO. To ER if develops chest pain, shortness of breath. Discussed risks, benefits, alternatives, and potential side effects of medications. Patient/Guardian expressed understanding and agreed with the plan. See patient instructions. Brandon Boland DO [address] [place] [address] Allergies As of Date: 12/02/2023 Noted Allergy Reaction SEASONAL ALLERGIES 07/06/2012 14 - Other: See Comments Comments: Sinus pressure, rhinitis, sneezing. Date Reviewed: 06/02/2023 Reviewed by: Shea Arevalo LPN - Fully Assessed Reason for Visit: 6 Month Exam [189] Primary Visit Diagnosis:Hypertension , essential [I10] Other Visit Diagnoses:Liver hemangioma [D18.03] IFG (impai (more content not included)... Normal [facility] Visit Reporton Neurology Visit Report [facility] [address], [address] [place] [id number] OFFICE VISIT Date of Service: 05/14/23 MR#: [id number] Acct: [id number] Name: CARIDADSHEAROHIT NOWAK Rep #: [id number] : 1955 Provider: Dr. Mic masterson MD Age/Sex: 67/F Location: [facility]. Status: Signed Intake Vital Signs 11/19/22 11:03 05/14/23 09:17 Height 5 ft 5 in 5 ft 5 in Weight: 147 lb 151 lb BMI 24.4 25.1 BP 152/90 H 140/80 H Blood Pressure Location Lt brachial Lt brachial Position Sitting Sitting Respiration 16 17 Pulse 70 85 Pulse Source Monitor Monitor Temp 98.8 F 98.4 F Temp Source Temporal Temporal Pulse Oximetry (%) 97 98 Oxygen Delivery Method room air room air Intake Visit Reasons: 6 M FU Chief Complaint: Garbage Person Required: No Accompanied by: Self Allergies No Known Allergies Allergy (Verified 05/14/23 09:24) [facility] Medical History Environmental allergies History of pneumonia Hypertension Vitamin D deficiency Family History Father Cancer Stomach Mother Heart disease CAD (coronary artery disease) Hypertension Social History (Updated 06/04/22 @ 13:11 by Brittney Davidson) Smoking Status: Never smoker Electronic Cigarette Use: not used second hand exposure: No alcohol intake: former substance use type: does not use jorge/gnosticist: Presybeterian seatbelt use: always HPI HPI Chief Complaint: Details: Interim History: Shea returns for follow-up. She has a history of hypertension and trigeminal neuralgia. Around 2014, she began to experience right maxillary region aching pain that also had a sharp component. The pain was nearly continuous. She was unaware of any clear precipitating event. Chewing food on the right side of the mouth and brushing her right-sided teeth were triggers for her pain. She denied having numbness, weakness, vision change or headaches. She has mild left-sided hearing loss and tinnitus. A head MRI in 2015 did not reveal intracranial pathology. She underwent neurological evaluation in 2015 and was diagnosed with right trigeminal neuralgia. Carbamazepine was initiated at that time and she has had a significant reduction of her pain. She is tolerating carbamazepine well. She now experiences only mild and occasional trigeminal neuralgia pain that occurs only if she misses a dose of her medication or is late in taking a dose. She is satisfied with her current level of symptom control. Her prior labs revealed a vitamin D deficiency, and in January 2021 she was started on vitamin D3 50,000 units once weekly. Her vitamin D level was elevated (102.4) in October 2021. Her dose of vitamin D was reduced to 2000 IU daily. A subsequent vitamin D level checked earlier in 2022 was normal. She reported that she has osteopenia. She takes a calcium supplement. Physical Exam: Neuro: The patient is awake and alert and responds appropriately; speech is fluent Neck: No bruits Heart: Regular rate and rhythm Supplemental Info Brain MRI (03/26/2016): No suspicious abnormalities of the seventh and eighth nerve cranial nerves. No suspicious abnormalities of the Meckel's cave cisterns. No enhancing lesions of the trigeminal nerve pathways. Normal size of the ventricles and extra-axial spaces for the patient's age. Normal white matter tracts of the supratentorial brain. Right parasagittal convexity scalp is dark on T1 and T2. This is probably small calcified cephalhematoma. IMPRESSION: 1. Normal MRI of the brain and the trigeminal nerve pathways with and without contrast. 2. Probable small right parasagittal convexity scalp calcified cephalhematoma. These images were reviewed on 09/12/2020. Facial/sinus CT (05/11/2018): Normal paranasal sinuses. Labs (12/25/2020): CMP: Alk phos 140 (H), AST 70 (H), glucose 113 (H) TSH: Normal T3: Normal Free T4: Normal Lipid profile: Total cholesterol 242 (H), LDL 150 (H), non-HDL 176 (H) CBCD: Hemoglobin 15.9 (H), hematocrit 46.7 (H) Hemoglobin A1c: 5.4% (normal) Vitamin D: 21.7 (L) Labs (01/22/2021): CMP: Alk phos 151 (H), glucose 106 (H) Labs (11/22/2021): CBC: Hemoglobin 15.6 (H) CMP: BUN 21 (H), glucose 127 (H), alk phos 142 (H) Vitamin D: 102.4 (H) Carbamazepine level: 8.4 (within therapeutic range of 4???12) CBC, CMP, vitamin D (11/12/2022): Hemoglobin 15.4 (high) Carbamazepine level (11/12/2022): 8.6 (in therapeutic range) Coding Level of Care Code Off vis,est,level 3 Diagnoses Trigeminal neuralgia of right side of face G50.0 Assessment and Plan Assessment and Plan (1) Trigeminal neuralgia of right side of face: Status: Chronic Orders: Orders Comprehensive Metabolic Profil Today G50.0 - Trigeminal neuralgia Carbamazepine (Tegretol) Today G50.0 - Trigeminal n (more content not included)... Normal [facility] NERY DIAGNOSTIC RIGHTon 02-24 [facility] BREAST BIOPSY RIGHT (POC) SURG USE ONLYon 02-24-2023 [facility] NERY DIAG W THUY RIGHTon 07-2 [facility] DXA-AXIAL SKELETONon 022 [facility] Basophil percentageon 2021 Bilirubin [Mass/Vol] 0.40 mg/dL 0.20-1.00 [facility] Work Phone: Comment on above: For patients on eltr ombopag therapy, use of Dimension [place] TBIL is not recommended. Chloride [Moles/Vol] 105 mmol/L 98-107 [facility] Work Phone: Glucose [Mass/Vol] 127 mg/dL 74-106 [facility] Work Phone: Comment on above: Fasting Glucose resu lt greater than or equal to 126 mg/dL suggests DIABETES MELLITUS per A.D.A. criteria. Potassium [Moles/Vol] 4.1 mmol/L 3.5-5.1 [facility] Work Phone: Protein [Mass/Vol] 6.9 g/dL 6.4-8.2 [facility] Work Phone: Sodium [Moles/Vol] 139 mmol/L 136-145 [facility] Work Phone: WBC (Bld) [#/Vol] 8.8 10*3/uL 4.4-11.0 [facility] Work Phone: Blood erythrocytes count (nu mber/volume)on 11-22-2021 RBC (Bld) [#/Vol] 4.86 10*6/uL 4.2-5.4 [facility]: Blood hemoglobin measurement (mass/volume)on 11-22-2021 Hemoglobin (Bld) [Mass/Vol] 15.6 g/dL 12.0-15.0 [facility] Work Phone: Blood platelet mean volumeon 11-22-2021 Platelet mean volume (Bld) [Entitic vol] 8.6 fL 6.2-12.0 [facility] Work Phone: Determination of erythrocyte mean corpuscular volume (MCV)on 11-22-2021 MCV (RBC) [Entitic vol] 92.0 fL 81-99 [facility] Work Phone: Hematocrit Auto (Bld) [Volum e fraction]on 11-22-2021 Hematocrit (Bld) [Volume fraction] 44.7 % 37-47 [facility] Work Phone: Laboratory - Chemistry and C hemistry - challengeon 11-22-2021 ALP [Catalytic activity/Vol] 142 U/L 45-117 [facility] Work Phone: ALT [Catalytic activity/Vol] 34 U/L 13-56 [facility] Work Phone: CO2 [Moles/Vol] 27.0 mmol/L 21.0-32.0 [facility] Work Phone: Globulin (S) [Mass/Vol] 3.2 g/dL 2.2-4.2 [facility] Work Phone: Urea nitrogen/Creatinine [Mass ratio] 26.0 mg/mg 10-20 [facility] Work Phone: Laboratory - Hematology and Cell countson 11-22-2021 Erythrocyte distribution width (RBC) [Entitic vol] 40.2 fL 35.1-43.9 [facility] Work Phone: Erythrocyte distribution width (RBC) [Ratio] 11.8 % 11.6-14.6 [facility] Work Phone: MCH (RBC) [Entitic mass] 32.1 pg 27.0-32.0 [facility] Work Phone: MCHC Auto (RBC) [Mass/Vol]on 11-22-2021 MCHC (RBC) [Mass/Vol] 34.9 g/dL 32-36 [facility] Work Phone: No Panel Informationon 11-22 Carbamazepine (Tegretol) Level 8.4 ug/mL 4.0-12.0 [facility] Work Phone: Estimated GFR (MDRD) Amer 91 mL/min >60 [facility] Work Phone: Comment on above: GFR Calc Estimated GFR (MDRD) Non-Af Amer 75 mL/min >60 [facility] Work Phone: Comment on above: Non- GFR Calc Vitamin D 25-Hydroxy 102.4 ng/mL [facility] Work Phone: Comment on above: Vitamin D 25(OH) Sta tus Range Deficiency <20 ng/mL (50nmol/L) Insufficiency 20 - 30 ng/mL (50 - 75 nmol/L) Sufficiency 30 - 100 ng/mL (75 - 250 nmol/L) Toxicity >100 ng/mL (>250 nmol/L)Evidence suggests that patients undergoing fluorescein dye angiography can retain small amounts of fluorescein in the body for up to 48 to 72 hours post-treatment. In the cases of patients with renal insufficiency, retention could be much longer. Samples containing fluorescein can produce falsely elevated values when tested with the Advia Centaur Vitamin D assay. With fluorescein interference, observed Vitamin D values can be as high as >150 ng/mL (>375 nmol/L). Samples should be resubmitted post fluorescein clearance to ensure there is no interference with Vitamin D test results. Platelets bldon 11-22-2021 Platelets (Bld) [#/Vol] 263 10*3/uL 150-450 [facility] Work Phone: Serum or plasma albumin hyun urement (mass/volume)on 11-22-2021 Albumin [Mass/Vol] 3.7 g/dL 3.2-5.0 [facility] Work Phone: Serum or plasma albumin/glob ulin mass ratioon 11-22-2021 Albumin/Globulin [Mass ratio] 1.2 {ratio} 0.9-2.4 [facility] Work Phone: Serum or plasma calcium hyun urement (mass/volume)on 11-22-2021 Calcium [Mass/Vol] 8.8 mg/dL 8.5-10.1 [facility] Work Phone: Serum or plasma creatinine m easurement (mass/volume)on 11-22-2021 Creatinine [Mass/Vol] 0.81 mg/dL 0.55-1.02 [facility] Work Phone: Comment on above: The validity of the calculated GFR & GFRAA in patients over 70 years has not been determined. Clinical correlation is essential. Serum or plasma urea nitroge n measurement (mass/volume)on 11-22-2021 Urea nitrogen [Mass/Vol] 21 mg/dL 7-18 [facility] Work Phone: Thin prep Papanicolaou smear with manual screeningon 11-22-2021 Thin prep Papanicolaou smear with manual screening 32 U/L 15-37 [facility] Work Phone: Thin prep Papanicolaou smear with manual screening 7 5-15 [facility] Work Phone: Vital Signs Date Time Vital Sign Value Performing Clinician Faci lity 11-02-2024 08:04-0400 Body mass index (BMI) [Ratio] 23.16 kg/m2 Brandon Boland DO Work Phone: [facility] 11-02-2024 08:04-0400 Body temperature 96.01 [degF] Brandon Boland DO Work Phone: [facility] 11-02-2024 08:04-0400 Body weight 63.05 kg Brandon Boland DO Work Phone: [facility] 11-02-2024 08:04-0400 Diastolic blood pressure 80 mm[Hg] Brandon Boland DO Work Phone: [facility] 11-02-2024 08:04-0400 Heart rate 76 /min Brandon Boland DO Work Phone: [facility] 11-02-2024 08:04-0400 Respiratory rate 16 /min Brandon Boland DO Work Phone: [facility] 11-02-2024 08:04-0400 Systolic blood pressure 130 mm[Hg] Brandon Boland DO Work Phone: [facility] 05-05-2024 08:45-0500 Body mass index (BMI) [Ratio] 24.24 kg/m2 Brandon Boland DO Work Phone: [facility] 05-05-2024 08:45-0500 Body temperature 97.5 [degF] Brandon Boland DO Work Phone: [facility] 05-05-2024 08:45-0500 Body weight 66 kg Brandon Boland DO Work Phone: [facility] 05-05-2024 08:45-0500 Diastolic blood pressure 82 mm[Hg] Brandon Boland DO Work Phone: [facility] 05-05-2024 08:45-0500 Heart rate 80 /min Brandon Boland DO Work Phone: [facility] 05-05-2024 08:45-0500 Respiratory rate 12 /min Brandon Boland DO Work Phone: [facility] 05-05-2024 08:45-0500 Systolic blood pressure 128 mm[Hg] Brandon Boland DO Work Phone: [facility] 12-02-2023 09:16-0400 Diastolic blood pressure 82 mm[Hg] Brandon Boland DO Work Phone: [facility] 12-02-2023 09:16-0400 Systolic blood pressure 138 mm[Hg] Brandon Boland DO Work Phone: [facility] 12-02-2023 08:44-0400 Body mass index (BMI) [Ratio] 24.32 kg/m2 Brandon Boland DO Work Phone: [facility] 12-02-2023 08:44-0400 Body temperature 97 [degF] Brandon Boland DO Work Phone: [facility] 12-02-2023 08:44-0400 Body weight 66.22 kg Brandon Boland DO Work Phone: [facility] 12-02-2023 08:44-0400 Heart rate 76 /min Brandon Boland DO Work Phone: [facility] 12-02-2023 08:44-0400 Respiratory rate 16 /min Brandon Boland DO Work Phone: [facility] 06-02-2023 07:44-0500 Body height 165 cm Brandon Boland DO Work Phone: [facility] 06-02-2023 07:44-0500 Body temperature 97.39 [degF] Brandon Boland DO Work Phone: [facility] 06-02-2023 07:44-0500 Body weight 69.4 kg Brandon Boland DO Work Phone: [facility] 06-02-2023 07:44-0500 Diastolic blood pressure 80 mm[Hg] Brandon Boland DO Work Phone: [facility] 06-02-2023 07:44-0500 Heart rate 76 /min Brandon Boland DO Work Phone: [facility] 06-02-2023 07:44-0500 Respiratory rate 16 /min Brandon Boland DO Work Phone: [facility] 06-02-2023 07:44-0500 Systolic blood pressure 130 mm[Hg] Brandon Boland DO Work Phone: [facility] 03-11-2023 09:14-0400 Body height 162.6 cm Ewelina Garcia MD Work Phone: [facility] 03-11-2023 09:14-0400 Body temperature 97.81 [degF] Ewelina Garcia MD Work Phone: [facility] 03-11-2023 09:14-0400 Body weight 66.22 kg Ewelina Garcia MD Work Phone: [facility] 03-11-2023 09:14-0400 Diastolic blood pressure 82 mm[Hg] Ewelina Garcia MD Work Phone: [facility] 03-11-2023 09:14-0400 Heart rate 70 /min Ewelina Garcia MD Work Phone: [facility] 03-11-2023 09:14-0400 SaO2% (BldA) [Mass fraction] 96 % Ewelina Garcia MD Work Phone: [facility] 03-11-2023 09:14-0400 Systolic blood pressure 134 mm[Hg] Ewelina Garcia MD Work Phone: [facility] 01-27-2023 08:04-0400 Body height 162.6 cm Ewelina Garcia MD Work Phone: [facility] 01-27-2023 08:04-0400 Body temperature 97.3 [degF] Ewelina Garcia MD Work Phone: [facility] 01-27-2023 08:04-0400 Body weight 66.77 kg Ewelina Garcia MD Work Phone: [facility] 01-27-2023 08:04-0400 Diastolic blood pressure 80 mm[Hg] Ewelina Garcia MD Work Phone: [facility] 01-27-2023 08:04-0400 Heart rate 86 /min Ewelina Garcia MD Work Phone: [facility] 01-27-2023 08:04-0400 SaO2% (BldA) [Mass fraction] 96 % Ewelina Garcia MD Work Phone: [facility] 01-27-2023 08:04-0400 Systolic blood pressure 132 mm[Hg] Ewelina Garcia MD Work Phone: [facility] 01-08-2023 10:40-0400 Body temperature 98.01 [degF] Katherin Contreras APRN.[employer] Work Phone: [facility] 01-08-2023 10:40-0400 Body weight 66.22 kg Katherin Contreras APRN.[employer] Work Phone: [facility] 01-08-2023 10:40-0400 Diastolic blood pressure 88 mm[Hg] Katherin Contreras APRN.[employer] Work Phone: [facility] 01-08-2023 10:40-0400 Heart rate 95 /min Katherin Contreras APRN.[employer] Work Phone: [facility] 01-08-2023 10:40-0400 Respiratory rate 21 /min Katherin Contreras APRN.[employer]ER Work Phone: [facility] 01-08-2023 10:40-0400 SaO2% (BldA) [Mass fraction] 98 % Katherin Contreras APRN.[employer] Work Phone: [facility] 01-08-2023 10:40-0400 Systolic blood pressure 142 mm[Hg] Katherin Contreras APRN.[employer] Work Phone: [facility] 11-26-2022 09:22-0400 Body temperature 96.01 [degF] Brandon Boland DO Work Phone: [facility] 11-26-2022 09:22-0400 Body weight 67.59 kg Brandon Boland DO Work Phone: [facility] 11-26-2022 09:22-0400 Diastolic blood pressure 80 mm[Hg] Brandon Boland DO Work Phone: [facility] 11-26-2022 09:22-0400 Heart rate 64 /min Brandon Boland DO Work Phone: [facility] 11-26-2022 09:22-0400 Respiratory rate 16 /min Brandon Boland DO Work Phone: [facility] 11-26-2022 09:22-0400 Systolic blood pressure 138 mm[Hg] Brandon Boland DO Work Phone: [facility] 05-29-2022 12:00-0500 Body height 165 cm Brandon Boland DO Work Phone: [facility] 05-29-2022 12:00-0500 Body temperature 97 [degF] Brandon Boland DO Work Phone: [facility] 05-29-2022 12:00-0500 Body weight 69.85 kg Brandon Boland DO Work Phone: [facility] 05-29-2022 12:00-0500 Diastolic blood pressure 80 mm[Hg] Brandon Boland DO Work Phone: [facility] [facility] 05-29-2022 12:00-0500 Heart rate 72 /min Brandon Boland DO Work Phone: [facility] 05-29-2022 12:00-0500 Respiratory rate 16 /min Brandon Boland DO Work Phone: [facility] 05-29-2022 12:00-0500 Systolic blood pressure 116 mm[Hg] Brandon Boland DO Work Phone: [facility] 11-27-2021 09:06-0400 Body temperature 97 [degF] Brandon Boland DO Work Phone: [facility] 11-27-2021 09:06-0400 Body weight 64.41 kg Brandon Boland DO Work Phone: [facility] 11-27-2021 09:06-0400 Diastolic blood pressure 70 mm[Hg] Brandon Boland DO Work Phone: [facility] 11-27-2021 09:06-0400 Heart rate 80 /min Brandon Boland DO Work Phone: [facility] 11-27-2021 09:06-0400 Respiratory rate 16 /min Brandon Boland DO Work Phone: [facility] 11-27-2021 09:06-0400 Systolic blood pressure 130 mm[Hg] Brandon Boland DO Work Phone: [facility] Encounters Encounter Date Encounter Type Care Provider Facility Start: 11-19-2024 End: 11-19-2024 ambulatory BRANDON Hall BOLAND Facility:[facility] Start: 11-02-2024 End: 11-02-2024 Patient encounter procedure Brandon Boland DO Work Phone: [facility] [place] Comment on above: Hypertension, essent ial (Primary Dx); Encounter for screening mammogram for malignant neoplasm of breast; Disorder of bone and cartilage; Dyslipidemia; Vitamin D deficiency; IFG (impaired fasting glucose); Liver hemangioma; Lightheaded; Fatigue, unspecified type Start: 11-02-2024 End: 11-02-2024 ambulatory BRANDON CEVALLOSON Facility:[facility] Start: 08-31-2024 End: 08-31-2024 Refill Brandon Cevalloson DO Work Phone: [address] [place] [address] Comment on above: Refill Request Start: 05-06-2024 End: 05-06-2024 Refill Brandon Cevalloson DO Work Phone: [facility] Comment on above: Refill Request Start: 05-05-2024 End: 05-05-2024 ambulatory BRANDON TORRERISON Facility:[facility] Start: 05-05-2024 End: 05-05-2024 Patient encounter procedure Brandon Cevalloson DO Work Phone: [facility] Comment on above: Hypertension, essent ial (Primary Dx); Need for influenza vaccination; Need for COVID-19 vaccine; Dyslipidemia; Vitamin D deficiency; IFG (impaired fasting glucose); Neck pain; Acute midline low back pain without sciatica Start: 04-13-2024 End: 04-19-2024 Telephone encounter Brandon Boland DO Work Phone: [facility] Comment on above: Results Start: 03-10-2024 End: 03-10-2024 Refill Brandon Boland DO Work Phone: [facility] Comment on above: Refill Request Start: 03-03-2024 End: 03-04-2024 Documentation procedure Mammography Coordinator [facility] Department Start: 03-03-2024 End: 03-04-2024 Letter encounter Mammography Coordinator [facility] Start: 03-03-2024 End: 03-08-2024 Telephone encounter Vy Dimas PA-C Work Phone: [facility] Start: 03-03-2024 End: 03-03-2024 ambulatory BRANDON BOLAND Facility:[facility] Start: 03-03-2024 End: 03-03-2024 Subsequent hospital visit by physician Screen Mammo [facility] Comment on above: Encounter for screen ing mammogram for malignant neoplasm of breast [Z12.31] Start: 02-27-2024 End: 02-27-2024 ambulatory BRANDON BOLAND Facility:[facility] Start: 02-09-2024 End: 02-09-2024 ambulatory Brandon Boland Facility:[facility] Start: 02-09-2024 End: 02-09-2024 ambulatory Brandon Boland Facility:[facility] Start: 12-29-2023 Refill Brandon del castillo DO Work Phone: [facility] Comment on above: Refill Request Start: 12-02-2023 End: 12-02-2023 ambulatory BRANDON BOLAND Facility:[facility] Start: 12-02-2023 End: 12-02-2023 Patient encounter procedure Brandon Boland DO Work Phone: [facility] [place] Comment on above: Hypertension, essent ial (Primary Dx); Liver hemangioma; IFG (impaired fasting glucose); Dyslipidemia; Encounter for screening mammogram for malignant neoplasm of breast; Vitamin D deficiency; Fatigue, unspecified type Start: 09-04-2023 Refill Ana Neal ROSALEE.HIDES AND SKINS COLORER Work Phone: [facility] Comment on above: Refill Request Start: 08-27-[address] josephine GOODWINN.HIDES AND SKINS COLORER Work Phone: [facility] Comment on above: Results Start: 08-20-2023 Refill Brandon del castillo DO Work Phone: [facility] Comment on above: Refill Request Start: 06-02-2023 End: 06-02-2023 Patient encounter procedure Brandon Boland DO Work Phone: [facility] Comment on above: Well adult exam (Aiyana timothy Dx); Screening for colon cancer; Dyslipidemia; IFG (impaired fasting glucose); Vitamin D deficiency; Fatigue, unspecified type; Hypertension, essential; Need for RSV vaccination Start: 06-02-2023 End: 06-02-2023 Patient encounter status Brandon Boland DO Work Phone: [facility] Work Phone: Start: 05-14-2023 End: 05-14-2023 ambulatory Brandon Boland Facility:[facility] Start: 04-14-2023 Refill Brandon del castillo DO Work Phone: [facility] Comment on above: Refill Request Start: 03-19-2023 Refill Brandon del castillo DO Work Phone: [facility] Comment on above: Refill Request Start: 03-11-2023 End: 03-11-2023 Patient encounter procedure Ewelina Garcia MD Work Phone: General Surgery Comment on above: Abnormal mammogram ( Primary Dx) Start: 02-24-2023 End: 02-24-2023 Patient encounter procedure Ewelina Garcia MD Work Phone: General Surgery Comment on above: Abnormal ultrasound of breast (Primary Dx) Start: 02-17-2023 Telephone encounter Brandon Hall Beverly molina DO Work Phone: [facility] Start: 01-27-2023 End: 01-27-2023 Patient encounter procedure Ewelina Garcia MD Work Phone: General Surgery Comment on above: Abnormal ultrasound of breast (Primary Dx); Abnormal mammogram Start: 01-21-2023 End: 01-21-2023 Subsequent hospital visit by physician Diagnostic Mammo [facility] Start: 01-08-2023 End: 01-08-2023 Patient encounter procedure Katherin Contreras APRN.CNP Work Phone: [facility] Comment on above: Sinus congestion (Pr imary Dx) Start: 01-06-2023 Refill Brandon del castillo DO Work Phone: [facility] Comment on above: Refill Request Start: 12-09-2022 Telephone encounter Vy Dimas PA-C Work Phone: [facility] Comment on above: Results Start: 11-26-2022 End: 11-26-2022 Patient encounter procedure Brandon Boland DO Work Phone: [facility] [place] Comment on above: Essential hypertensi on, benign (Primary Dx); IFG (impaired fasting glucose); Dyslipidemia; Vitamin D deficiency; Fatigue, unspecified type Start: 09-25-2022 Refill Brandon del castillo DO Work Phone: [facility] [place] Comment on above: Refill Request Start: 09-18-2022 ambulatory Brandon del castillo DO Work Phone: [facility] [place] Start: 08-06-2022 Telephone encounter Brandon molina DO Work Phone: [facility] [place] Comment on above: Results Start: 07-17-2022 Telephone encounter Brandon molina DO Work Phone: [facility] [place] Comment on above: Results Start: 06-27-2022 Telephone encounter Juanita Farmer APRN.HIDES AND SKINS COLORER Work Phone: [facility] [place] Comment on above: Results Start: 05-29-2022 End: 05-29-2022 Patient encounter procedure Brandon Boland DO Work Phone: [facility] [place] Comment on above: Essential hypertensi on, benign (Primary Dx); IFG (impaired fasting glucose); Dyslipidemia; Vitamin D deficiency; Hypertension, essential; Fatigue, unspecified type; Need for pneumococcal vaccination; Screening for colon cancer Start: 04-01-2022 Refill Brandon del castillo DO Work Phone: [facility] [place] Comment on above: Refill Request Start: 02-25-2022 Refill Brandon del castillo DO Work Phone: [facility] Comment on above: Refill Request Start: 12-17-2021 Telephone encounter Brandon molina DO Work Phone: [facility] Comment on above: Results Start: 12-10-2021 End: 12-10-2021 Subsequent hospital visit by physician Bone Density [facility] Work Phone: Radiology Comment on above: Post-menopausal [Z78 .0] Start: 11-27-2021 End: 11-27-2021 Patient encounter procedure Brandon Boland DO Work Phone: [facility] [place] Comment on above: IFG (impaired fastin g glucose) (Primary Dx); Dyslipidemia; Vitamin D deficiency; Hypertension, essential; Fatigue, unspecified type Start: 11-22-2021 End: 11-22-2021 Patient encounter procedure [facility] Start: 11-19-2021 Refill Brandon del castillo DO Work Phone: [facility] [place] Comment on above: Refill Request Start: 10-03-2021 ambulatory Brandon del castillo DO Work Phone: [facility] [place] Start: 09-27-2021 Refill Brandon del castillo DO Work Phone: [facility] [place] Comment on above: Refill Request Start: 10-11-2010 Patient encounter status Suzan Boland DO Work Phone: [facility] Work Phone: Procedures Date Procedure Procedure Detail Performing Clinician Start: 11-02-2024 Ecg routine ecg w/le ast 12 lds i&r only Brandon Boland DO Work Phone: Start: 05-05-2024 [employer] COVI D-19 VACCINE AGE 12+ YR (COMIRNATY) Brandon Boland DO Work Phone: Start: 03-03-2024 Screening digital br east tomosynthesis bi Brandon Boland DO Work Phone: Start: 02-27-2024 Lipid 1996 panel - S tiff or Plasma Screen [facility] Start: 12-02-2023 Adult depression scr eening assessment Screen [facility] Start: 06-02-2023 RSV VACCINE, BIVALEN T (ABRYSVO) Brandon Cevalloson DO Work Phone: Start: 02-24-2023 US BREAST BIOPSY RIG HT (POC) SURG USE ONLY Ewelina Garcia MD Work Phone: Start: 01-21-2023 Digital breast tomosynthesis unilateral Vy FAUSTIN-Gemini Work Phone: Start: 11-28-2022 Mammography Vy FAUSTIN-Gemini Work Phone: Start: 07-10-2022 Lipid 1996 panel - S tiff or Plasma Ewelina Garcia MD Work Phone: Start: 12-10-2021 Dxa bone density vida dy 1/> sites axial skel Brandon Hall Boland DO Work Phone: Start: 11-27-2021 Adult depression scr eening assessment Brandon Boland DO Work Phone: Start: 08-28-2020 Mammography Brandon Torre risjacklyn DO Work Phone: Start: 08-25-2020 Adult depression scr eening assessment Brandon Torrerison DO Work Phone: Plan of Treatment Date Care Activity Detail Author Start: 02-26-2029 Lipid panel Lipid Screening [facility] Start: 01-28-2028 Urine microalbumin profile [facility] Start: 07-10-2027 Lipid 1996 panel - S tiff or Plasma Lipid Screening [facility] Start: 07-10-2027 Lipid panel Lipid Screening [facility] Start: 07-10-2027 LIPID SCREEN LIPID SCREEN [facility] Start: 02-26-2027 Diabetes Screening Diabetes Screenin [facility] Start: 12-25-2025 LIPID SCREEN LIPID SCREEN [facility] Start: 11-02-2025 Annual PCP Team It Data Architect ambika Disease Visit Annual PCP Team Chronic Disease Visit [facility] Start: 07-10-2025 DIABETES SCREEN DIABETES SCREEN [facility] Start: 07-10-2025 Diabetes Screening Diabetes Screenin g [facility] Start: 05-11-2025 End: 05-11-2025 Patient encounter procedure 05/11/2025 7:40 AM EST Office Visit Family Brenna [facility] [address] [place] [address] Brandon Boland DO [address] [place] [address] Physical [facility] [place] Comment on above: Physical Start: 05-05-2025 Annual PCP Team It Data Architect ambika Disease Visit Annual PCP Team Chronic Disease Visit [facility] Start: 03-08-2025 End: 03-08-2025 Patient encounter procedure 03/08/2025 7:30 AM EDT Appointment Mammogram [address] [place] [address] Encounter for screening mammogram for malignant neoplasm of breast [Z12.31] Mammogram Comment on above: Encounter for screen ing mammogram for malignant neoplasm of breast [Z12.31] Start: 03-03-2025 Screening for malign ant neoplasm of breast Mammogram Screening [facility] Start: 02-07-2025 End: 02-07-2025 Nursing evaluation of patient and report 02/07/2025 2:40 PM EDT Nurse Visit Cardiology [address] [place] [address] Wstr, Nurse Card [address] [place] [address] Hypertension, essential [I10]; Dyslipidemia [E78.5]; Lightheaded [R42] Cardiology Comment on above: Hypertension, essent ial [I10]; Dyslipidemia [E78.5]; Lightheaded [R42] Start: 12-15-2024 End: 12-15-2024 Patient encounter procedure 12/15/2024 8:00 AM EDT Office Visit Vasculary Surgery [address] [place] [address] Hypertension, essential [I10]; Dyslipidemia [E78.5]; Lightheaded [R42] [facility]cul[facility] Surgery Comment on above: Hypertension, essent ial [I10]; Dyslipidemia [E78.5]; Lightheaded [R42] Start: 12-09-2024 End: 12-09-2024 Patient encounter procedure 12/09/2024 7:45 AM EDT Appointment Radiology [address] [place] [id number] 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, M94.9] Radiology Comment on above: 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, M94.9] Start: 12-01-2024 Annual PCP Team It Data Architect ambika Disease Visit Annual PCP Team Chronic Disease Visit [facility] Start: 12-01-2024 Anxiety Screening Anxiety Screening [facility] Start: 12-01-2024 Depression Screening Depression Scre ening [facility] Start: 11-19-2024 End: 11-19-2024 Patient encounter procedure 11/19/2024 8:00 AM EDT Office Visit Cardiology [address] [place] [facility] [place] [address] Hypertension, essential [I10]; Dyslipidemia [E78.5]; Lightheaded [R42] Cardiology Comment on above: Hypertension, essent ial [I10]; Dyslipidemia [E78.5]; Lightheaded [R42] Start: 11-02-2024 End: 02-01-2025 25-hydroxyvitamin D3 [Mass/volume] in Serum or Plasma [facility] Comment on above: Expected: 11/02/2024 , Expires: 02/01/2025 Start: 11-02-2024 End: 02-01-2025 CBC panel - Blood by Automated count COMPLETE BLOOD COUNT Lab Routine Dyslipidemia Expected: 11/02/2024, Expires: 02/01/2025 [facility] Comment on above: Expected: 11/02/2024 , Expires: 02/01/2025 Start: 11-02-2024 End: 02-01-2025 CBC W Auto Differential panel - Blood COMPLETE BLOOD COUNT AND DIFFERENTIAL Lab Routine IFG (impaired fasting glucose) Expected: 11/02/2024, Expires: 02/01/2025 [facility] Comment on above: Expected: 11/02/2024 , Expires: 02/01/2025 Start: 11-02-2024 End: 02-01-2025 Cobalamin (Vitamin B12) [Mass/volume] in Serum or Plasma VITAMIN B12 Lab Routine Fatigue, unspecified type Expected: 11/02/2024, Expires: 02/01/2025 [facility] Comment on above: Expected: 11/02/2024 , Expires: 02/01/2025 Start: 11-02-2024 End: 02-01-2025 Comprehensive metabolic 2000 panel - Serum or Plasma [facility] Comment on above: Expected: 11/02/2024 , Expires: 02/01/2025 Start: 11-02-2024 Covid-19 Vaccine () Covid-19 Vaccine () [facility] Start: 11-02-2024 End: 02-01-2025 Hemoglobin A1c in Blood HEMOGLOBIN A1C Lab Routine IFG (impaired fasting glucose) Expected: 11/02/2024, Expires: 02/01/2025 [facility] Work Phone: Comment on above: Expected: 11/02/2024 , Expires: 02/01/2025 Start: 11-02-2024 End: 02-01-2025 Lipid 1996 panel - Serum or Plasma [facility] Comment on above: Expected: 11/02/2024 , Expires: 02/01/2025 Start: 11-02-2024 End: 02-01-2025 Thyrotropin [Units/volume] in Serum or Plasma THYROID STIMULATING HORMONE Lab Routine Lightheaded Expected: 11/02/2024, Expires: 02/01/2025 [facility] Comment on above: Expected: 11/02/2024 , Expires: 02/01/2025 Start: 11-02-2024 End: 11-02-2024 Patient encounter procedure 11/02/2024 8:20 AM EDT Office Visit Family Brenna Rinaldi [address] [place] [address] Brandon Boland DO [address] [place] [address] 6 month follow up Family Brenna Rinaldi Comment on above: 6 month follow up Start: 08-25-2024 Screening for malign ant neoplasm of colon [facility] Start: 06-02-2024 Annual PCP Team It Data Architect ambika Disease Visit Annual PCP Team Chronic Disease Visit [facility] Start: 06-02-2024 BP Controlled (<130/80) BP Controlle d (<130/80) [facility] Start: 06-02-2024 Covid-19 Vaccine ( season) Covid-19 Vaccine () [facility] Comment on above: Postponed from 02/28 (Declined at this time) Start: 05-05-2024 End: 05-05-2024 Patient encounter procedure 05/05/2024 9:00 AM EST Office Visit Family Brenna Rinaldi [address] [place] [address] Brandon Boland DO [address] [facility] [place] [address] Follow up [facility] [place] Comment on above: Follow up Start: 03-03-2024 End: 03-03-2024 Patient encounter procedure 03/03/2024 9:30 AM EDT Appointment Mammogram [address] [place] [address] Encounter for screening mammogram for malignant neoplasm of breast [Z12.31] Mammogram Comment on above: Encounter for screen ing mammogram for malignant neoplasm of breast [Z12.31] Start: 02-29-2024 Covid-19 Vaccine () Covid-19 Vaccine ( season) [facility] Start: 02-29-2024 Covid-19 Vaccine () Covid-19 Vaccine () [facility] Start: 02-29-2024 Influenza vaccination C [facility] Start: 01-23-2024 DIABETES SCREEN DIABETES SCREEN [facility] Start: 12-28-2023 Influenza vaccination Influenza Vacc ine (#1) [facility] Comment on above: Postponed from 02/28 (Declined at this time) Start: 12-02-2023 End: 03-02-2024 CBC W Auto Differential panel - Blood COMPLETE BLOOD COUNT AND DIFFERENTIAL Lab Routine Dyslipidemia Expected: 12/02/2023, Expires: 03/02/2024 [facility] Comment on above: Expected: 12/02/2023 , Expires: 03/02/2024 Start: 12-02-2023 End: 03-02-2024 Cobalamin (Vitamin B12) [Mass/volume] in Serum or Plasma VITAMIN B12 Lab Routine IFG (impaired fasting glucose) Expected: 12/02/2023, Expires: 03/02/2024 [facility] Comment on above: Expected: 12/02/2023 , Expires: 03/02/2024 Start: 12-02-2023 End: 03-02-2024 Comprehensive metabolic 2000 panel - Serum or Plasma COMPREHENSIVE METABOLIC PANEL Lab Routine Dyslipidemia Expected: 12/02/2023, Expires: 03/02/2024 [facility] Comment on above: Expected: 12/02/2023 , Expires: 03/02/2024 Start: 12-02-2023 End: 03-02-2024 Hemoglobin A1c in Blood HEMOGLOBIN A1C Lab Routine IFG (impaired fasting glucose) Expected: 12/02/2023, Expires: 03/02/2024 [facility] Comment on above: Expected: 12/02/2023 , Expires: 03/02/2024 Start: 12-02-2023 End: 03-02-2024 Lipid 1996 panel - Serum or Plasma LIPID PANEL BASIC Lab Routine Dyslipidemia Expected: 12/02/2023, Expires: 03/02/2024 [facility] Comment on above: Expected: 12/02/2023 , Expires: 03/02/2024 Start: 12-02-2023 End: 03-02-2024 Magnesium [Mass/volume] in Serum or Plasma MAGNESIUM Lab Routine IFG (impaired fasting glucose) Expected: 12/02/2023, Expires: 03/02/2024 [facility] Comment on above: Expected: 12/02/2023 , Expires: 03/02/2024 Start: 12-02-2023 End: 03-02-2024 Thyrotropin [Units/volume] in Serum or Plasma THYROID STIMULATING HORMONE Lab Routine Hypertension, essential IFG (impaired fasting glucose) Dyslipidemia Expected: 12/02/2023, Expires: 03/02/2024 [facility] Comment on above: Expected: 12/02/2023 , Expires: 03/02/2024 Start: 11-29-2023 Mammography [facility] Start: 11-29-2023 Screening for malign ant neoplasm of breast Mammogram Screening [facility] Start: 11-27-2023 ANNUAL PCP TEAM BENDING SHED WORKER AMBIKA DISEASE VISIT ANNUAL PCP TEAM CHRONIC DISEASE VISIT [facility] Start: 06-30-2023 Depression Assessment Depression Ass essment [facility] Start: 06-25-2023 COLORECTAL CANCER SCREENING COLORECTAL CANCER SCREENING [facility] Start: 06-25-2023 FECAL OCCULT BLOOD FECAL OCCULT BLOO D [facility] Start: 06-25-2023 Screening for malign ant neoplasm of colon [facility] Start: 06-02-2023 End: 09-01-2023 25-hydroxyvitamin D3 [Mass/volume] in Serum or Plasma VITAMIN D 25 HYDROXY Lab Routine Vitamin D deficiency Well adult exam Expected: 06/02/2023, Expires: 09/01/2023 [facility] Work Phone: Comment on above: Expected: 06/02/2023 , Expires: 09/01/2023 Start: 06-02-2023 End: 09-01-2023 CBC W Auto Differential panel - Blood CBC + DIFF Lab Routine Dyslipidemia Hypertension, essential Fatigue, unspecified type Well adult exam Expected: 06/02/2023, Expires: 09/01/2023 [facility] Work Phone: Comment on above: Expected: 06/02/2023 , Expires: 09/01/2023 Start: 06-02-2023 End: 09-01-2023 Cobalamin (Vitamin B12) [Mass/volume] in Serum or Plasma VITAMIN B12 BLOOD Lab Routine IFG (impaired fasting glucose) Fatigue, unspecified type Well adult exam Expected: 06/02/2023, Expires: 09/01/2023 [facility] Work Phone: Comment on above: Expected: 06/02/2023 , Expires: 09/01/2023 Start: 06-02-2023 End: 09-01-2023 Comprehensive metabolic 2000 panel - Serum or Plasma COMP METABOLIC PANEL Lab Routine Dyslipidemia Hypertension, essential Fatigue, unspecified type Well adult exam Expected: 06/02/2023, Expires: 09/01/2023 [facility] Work Phone: Comment on above: Expected: 06/02/2023 , Expires: 09/01/2023 Start: 06-02-2023 End: 09-01-2023 Hemoglobin A1c in Blood HGB A1C Lab Routine IFG (impaired fasting glucose) Fatigue, unspecified type Well adult exam Expected: 06/02/2023, Expires: 09/01/2023 [facility] Work Phone: Comment on above: Expected: 06/02/2023 , Expires: 09/01/2023 Start: 06-02-2023 End: 09-01-2023 Lipid 1996 panel - Serum or Plasma LIPID PANEL BASIC Lab Routine Dyslipidemia Well adult exam Expected: 06/02/2023, Expires: 09/01/2023 [facility] Work Phone: Comment on above: Expected: 06/02/2023 , Expires: 09/01/2023 Start: 06-02-2023 End: 09-01-2023 Thyrotropin [Units/volume] in Serum or Plasma TSH BLD Lab Routine Dyslipidemia IFG (impaired fasting glucose) Well adult exam Expected: 06/02/2023, Expires: 09/01/2023 [facility] Work Phone: Comment on above: Expected: 06/02/2023 , Expires: 09/01/2023 Start: 05-29-2023 ANNUAL PCP TEAM BENDING SHED WORKER AMBIKA DISEASE VISIT ANNUAL PCP TEAM CHRONIC DISEASE VISIT [facility] Start: 04-18-2023 Hzv zoster vacc recombinant adjuvanted im njx ZOSTER VACCINE, RECOMBINANT (SHINGRIX) Immunization/Injection Routine Need for vaccination Expected: 04/18/2023 (Approximate) [facility] Work Phone: Comment on above: Expected: 04/18/2023 (Approximate) Start: 02-28-2023 Covid-19 Vaccine ( season) Covid-19 Vaccine () [facility] Start: 02-28-2023 Influenza vaccination C [facility] Start: 12-27-2022 Influenza vaccination INFLUENZA (#1) [facility] Comment on above: Postponed from 02/28 (Declined at this time) Start: 11-27-2022 Adult depression scr eening assessment DEPRESSION SCREENING [facility] Start: 11-27-2022 ANNUAL PCP TEAM BENDING SHED WORKER AMBIKA DISEASE VISIT ANNUAL PCP TEAM CHRONIC DISEASE VISIT [facility] Start: 11-27-2022 BP CONTROLLED (<130/80) BP CONTROLLE D (<130/80) [facility] Start: 06-30-2022 DEPRESSION ASSESSMENT DEPRESSION ASS ESSMENT [facility] Start: 06-11-2022 COLORECTAL CANCER SCREENING COLORECTAL CANCER SCREENING [facility] Start: 06-11-2022 FECAL OCCULT BLOOD FECAL OCCULT BLOO D [facility] Start: 05-29-2022 End: 07-29-2022 25-hydroxyvitamin D3 [Mass/volume] in Serum or Plasma VITAMIN D 25 HYDROXY Lab Routine Vitamin D deficiency Fatigue, unspecified type Expected: 05/29/2022, Expires: 07/29/2022 [facility] Work Phone: Comment on above: Expected: 05/29/2022 , Expires: 07/29/2022 Start: 05-29-2022 ANNUAL PCP TEAM BENDING SHED WORKER AMBIKA DISEASE VISIT ANNUAL PCP TEAM CHRONIC DISEASE VISIT [facility] Start: 05-29-2022 End: 07-29-2022 CBC W Auto Differential panel - Blood CBC + DIFF Lab Routine Fatigue, unspecified type Expected: 05/29/2022, Expires: 07/29/2022 [facility] Work Phone: Comment on above: Expected: 05/29/2022 , Expires: 07/29/2022 Start: 05-29-2022 End: 07-29-2022 Cobalamin (Vitamin B12) [Mass/volume] in Serum or Plasma VITAMIN B12 BLOOD Lab Routine IFG (impaired fasting glucose) Fatigue, unspecified type Expected: 05/29/2022, Expires: 07/29/2022 [facility] Work Phone: Comment on above: Expected: 05/29/2022 , Expires: 07/29/2022 Start: 05-29-2022 End: 07-29-2022 Comprehensive metabolic 2000 panel - Serum or Plasma COMP METABOLIC PANEL Lab Routine Fatigue, unspecified type Expected: 05/29/2022, Expires: 07/29/2022 [facility] Work Phone: Comment on above: Expected: 05/29/2022 , Expires: 07/29/2022 Start: 05-29-2022 End: 07-29-2022 Hemoglobin A1c in Blood HGB A1C Lab Routine IFG (impaired fasting glucose) Expected: 05/29/2022, Expires: 07/29/2022 [facility] Work Phone: Comment on above: Expected: 05/29/2022 , Expires: 07/29/2022 Start: 05-29-2022 End: 07-29-2022 Lipid 1996 panel - Serum or Plasma LIPID PANEL BASIC Lab Routine Dyslipidemia Expected: 05/29/2022, Expires: 07/29/2022 [facility] Work Phone: Comment on above: Expected: 05/29/2022 , Expires: 07/29/2022 Start: 05-29-2022 PNEUMOCOCCAL: 65+ (2 - PCV) PNEUMOCOCCAL: 65+ (2 - PCV) [facility] Start: 02-28-2022 Influenza vaccination C [facility] Start: 11-27-2021 End: 01-27-2022 CBC panel - Blood by Automated count CBC Lab Routine Hypertension, essential Expected: 11/27/2021, Expires: 01/27/2022 [facility] Work Phone: Comment on above: Expected: 11/27/2021 , Expires: 01/27/2022 Start: 11-27-2021 End: 01-27-2022 Comprehensive metabolic 2000 panel - Serum or Plasma COMP METABOLIC PANEL Lab Routine Hypertension, essential Expected: 11/27/2021, Expires: 01/27/2022 [facility] Work Phone: Comment on above: Expected: 11/27/2021 , Expires: 01/27/2022 Start: 11-27-2021 End: 01-27-2022 Hemoglobin A1c/Hemoglobin.total in Blood HGB A1C Lab Routine IFG (impaired fasting glucose) Expected: 11/27/2021, Expires: 01/27/2022 [facility] Work Phone: Comment on above: Expected: 11/27/2021 , Expires: 01/27/2022 Start: 11-27-2021 End: 01-27-2022 LIPID PANEL BASIC LIPID PANEL BASIC Lab Routine Dyslipidemia Expected: 11/27/2021, Expires: 01/27/2022 [facility] Work Phone: Comment on above: Expected: 11/27/2021 , Expires: 01/27/2022 Start: 11-27-2021 End: 01-27-2022 VITAMIN B12 BLOOD VITAMIN B12 BLOOD Lab Routine Fatigue, unspecified type Expected: 11/27/2021, Expires: 01/27/2022 [facility] Work Phone: Comment on above: Expected: 11/27/2021 , Expires: 01/27/2022 Start: 11-22-2021 BP CONTROLLED (<130/80) BP CONTROLLE D (<130/80) [facility] Start: 08-28-2021 Mammography MAMMOGRAM [facility] Start: 08-25-2021 Adult depression scr eening assessment DEPRESSION SCREENING [facility] Start: 06-30-2021 ADVANCE DIRECTIVE DISCUSSION ADVANCE DIRECTIVE DISCUSSION [facility] Start: 06-30-2021 DEPRESSION ASSESSMENT DEPRESSION ASS ESSMENT [facility] Start: 02-28-2021 Influenza vaccination INFLUENZA (#1) [facility] Start: 01-18-2021 COVID-19 VACCINE (2 - Booster for Tia series) COVID-19 VACCINE (2 - Booster for Tia series) [facility] Start: 09-11-2019 BONE DENSITY BONE DENSITY [facility] Start: 2014 RSV Vaccine (1 - 1-d ose 60+ series) RSV Vaccine (1 - 1-dose 60+ series) [facility] Start: 2004 SHINGRIX VACCINE (1 of 2) JASMINE GRIX VACCINE (1 of 2) [facility] Start: 09-11-1999 COLOGUARD (FIT-DNA) COLOGUARD (FIT-D NA) [facility] Start: 09-11-1999 Colonoscopy COLONOSCOPY [facility] Start: 09-11-[address] COLONOGRAPHY [facility] Start: 09-11-1999 Screening for malign ant neoplasm of colon [facility] Start: 09-11-1999 SIGMOIDOSCOPY SIGMOIDOSCOPY [facility] End: 12-02-2025 BD DXA TRABECULAR BONE SCORE (TBS) BD DXA TRABECULAR BONE SCORE (TBS) Radiology Routine Disorder of bone and cartilage 1 Occurrences starting 11/02/2024 until 12/02/2025 [facility] Comment on above: 1 Occurrences starti ng 11/02/2024 until 12/02/2025 End: 12-31-2024 DBT Breast - bilateral screening NERY SCREENING W THUY Radiology Routine Encounter for screening mammogram for malignant neoplasm of breast 1 Occurrences starting 12/02/2023 until 12/31/2024 [facility] Work Phone: Comment on above: 1 Occurrences starti ng 12/02/2023 until 12/31/2024 End: 12-02-2025 DBT Breast - bilateral screening NERY SCREENING W THUY Radiology Routine Encounter for screening mammogram for malignant neoplasm of breast 1 Occurrences starting 11/02/2024 until 12/02/2025 [facility] Work Phone: Comment on above: 1 Occurrences starti ng 11/02/2024 until 12/02/2025 End: 12-02-2025 DXA Skeletal system.axial Views for bone density DXA-AXIAL SKELETON Radiology Routine Disorder of bone and cartilage 1 Occurrences starting 11/02/2024 until 12/02/2025 [facility] Comment on above: 1 Occurrences starti ng 11/02/2024 until 12/02/2025 ECG COMPLETE ECG COMPLETE ECG Routine Hypertension, essential Dyslipidemia Lightheaded 11/02/2024 8:59 AM EDT [facility] End: 11-02-2025 Echocardiography ECHO Cardiology Routine Hypertension, essential Dyslipidemia Lightheaded 1 Occurrences starting 11/02/2024 until 11/02/2025 [facility] Comment on above: 1 Occurrences starti ng 11/02/2024 until 11/02/2025 End: 11-02-2025 EXERCISE STRESS ECG (WITHOUT IMAGING) EXERCISE STRESS ECG (WITHOUT IMAGING) Cardiology Routine Hypertension, essential Dyslipidemia Lightheaded 1 Occurrences starting 11/02/2024 until 11/02/2025 [facility] Comment on above: 1 Occurrences starti ng 11/02/2024 until 11/02/2025 Hemoglobin.gastroint estina l.lower [Presence] in Stool by Immunoassay FECAL OCCULT BLOOD TEST Lab Routine Screening for colon cancer Ordered: 05/29/2022 [facility] Work Phone: Comment on above: Ordered: 05/29/2022 Hemoglobin.gastroint estina l.lower [Presence] in Stool by Immunoassay FECAL OCCULT BLOOD TEST Lab Routine Screening for colon cancer Ordered: 06/02/2023 [facility] Work Phone: Comment on above: Ordered: 06/02/2023 Hzv zoster vacc recombinant adjuvanted im njx ZOSTER VACCINE, RECOMBINANT (SHINGRIX) Immunization/Injection Routine Need for vaccination Ordered: 02/17/2023 [facility] Work Phone: Comment on above: Ordered: 02/17/2023 End: 01-08-2024 NERY DIAGNOSTIC RIGHT NERY DIAGNOSTIC RIGHT Radiology Routine Abnormal screening mammogram 1 Occurrences starting 12/09/2022 until 01/08/2024 [facility] Work Phone: Comment on above: 1 Occurrences starti ng 12/09/2022 until 01/08/2024 End: 04-09-2024 NERY DIAGNOSTIC RIGHT NERY DIAGNOSTIC RIGHT Radiology Routine Abnormal mammogram 1 Occurrences starting 03/11/2023 until 04/09/2024 [facility] Work Phone: Comment on above: 1 Occurrences starti ng 03/11/2023 until 04/09/2024 End: 11-02-2022 NERY SCREENING W THUY NERY SCREENING W THUY Radiology Routine Encounter for screening mammogram for breast cancer 1 Occurrences starting 10/03/2021 until 11/02/2022 [facility] Work Phone: Comment on above: 1 Occurrences starti ng 10/03/2021 until 11/02/2022 End: 10-18-2023 NERY SCREENING W THUY NERY SCREENING W THUY Radiology Routine Encounter for screening mammogram for breast cancer 1 Occurrences starting 09/18/2022 until 10/18/2023 [facility] Work Phone: Comment on above: 1 Occurrences starti ng 09/18/2022 until 10/18/2023 SURGICAL PATHOLOGY SURGICAL PATH OLOGY Lab Routine Abnormal ultrasound of breast 02/24/2023 8:33 AM EDT [facility] Work Phone: End: 08-16-2023 Us abdominal real time w/image limited US ABD RT UPPER QUADRANT Radiology Routine Alkaline phosphatase elevation 1 Occurrences starting 07/17/2022 until 08/16/2023 [facility] Work Phone: Comment on above: 1 Occurrences starti ng 07/17/2022 until 08/16/2023 End: 01-08-2024 US BREAST LTD RIGHT US BREAST LTD RIGHT Radiology Routine Abnormal screening mammogram 1 Occurrences starting 12/09/2022 until 01/08/2024 [facility] Work Phone: Comment on above: 1 Occurrences starti ng 12/09/2022 until 01/08/2024 End: 11-02-2025 US Carotid arteries - bilateral US CAROTID ARTERIES [facility] Lab Routine Hypertension, essential Dyslipidemia Lightheaded 1 Occurrences starting 11/02/2024 until 11/02/2025 [facility] Comment on above: 1 Occurrences starti ng 11/02/2024 until 11/02/2025 [facility] Immunizations Immunization Date Immunization Notes Care Provider Manuelito fierro 05-05-2024 COVID-19 vaccine, ag e 12+ yr ([employer]-BRIKA COMIRNATY) Brandon Boland DO Work Phone: [facility] 05-05-2024 influenza, high dose seasonal, preservative-free Brandon Torrerison DO Work Phone: [facility] 06-02-2023 respiratory syncytia l virus (RSV) vaccine, bivalent (ABRYSVO) Brandon Torrerison DO Work Phone: [facility] Work Phone: 05-29-2022 pneumococcal (PCV20) vaccine, 20 valent (PREVNAR 20) Brandon Torrerison DO Work Phone: [facility] Work Phone: 05-29-2022 pneumococcal Conjuga te, unspecified formulation Brandon Torrerison DO Work Phone: [facility] Work Phone: 05-29-2021 pneumococcal polysaccharide vaccine, 23 valent Brandon Torrerison DO Work Phone: [facility] Work Phone: 08-21-2018 influenza virus vacc ine, unspecified formulation Ewelina Garcia MD Work Phone: [facility] 01-27-2018 tetanus toxoid, redu thierry diphtheria toxoid, and acellular pertussis vaccine, adsorbed Brandon Torrerison DO Work Phone: [facility] Work Phone: 07-14-2006 tetanus and diphther ia toxoids, not adsorbed, for adult use Brandon Torrerison DO Work Phone: [facility] Payers Date Payer Category Payer Self-pay [id number] 2021 [employer] BLUE ACCE SS PPO Member Subscriber Plan / Payer (Effective 2021-Present) Name: Shea Mclean Relation to Subscriber: Self Name: hSea Mclean Payer ID: [id number] (NAIC) Type: PPO Address: [address] [place] [id number] 2021 Unknown [employer]THE[employer] BLUE ACCE SS PPO [id number] 2021-Present [phone] [place] [id number] PPO [id number] 2021 Unknown ANTHEM BLUE ACCE SS PPO [id number] 2021-Present [phone] [place] [id number] PPO [id number] 2021 Unknown [id number] 2020 Unknown [facility] [id number] 2020-Present [phone] [facility] [place] [address] PPO [id number] Unknown SELF PAY INSURANCE [id number] Unknown [id number] Unknown [id number] Unknown [id number] Social History Date Type Detail Facility [facility] Work Phone: Start: 05-29-2021 End: 11-02-2024 Alcohol intake Current non-drinker of alcohol (finding) [facility] Start: 1955 Sex Assigned At Not on file C [facility] Start: 11-17-2021 End: 05-29-2022 Exposure to SARS-CoV-2 (event) Not sure [facility] Work Phone: Start: 08-15-2021 [facility] if ever smoked [facility] Work Phone: Start: 1955 Sex Assigned At Female [facility] Work Phone: Start: 05-29-2022 End: 11-26-2022 History of Social function [facility] Work Phone: Start: 05-29-2022 End: 11-26-2022 Tobacco use panel [facility] Work Phone: Adult Depression Screening Assessment 0 [facility] Work Phone: Functional Status Date Assessment Result Facility 01-17-2015 Are you deaf, or do you have serious difficulty hearing No 01/17/2015 9:21 AM Shea Patel LPN No [facility] 01-17-2015 Are you blind, or do you have serious difficulty seeing, even when wearing glasses No 01/17/2015 9:21 AM Shea Patel LPN No [facility] 01-17-2015 Do you have serious difficulty walking or climbing stairs No 01/17/2015 9:21 AM Shea Patel LPN No [facility] 01-17-2015 Do you have difficul ty dressing or bathing No 01/17/2015 9:21 AM Shea Patel LPN No [facility] 01-17-2015 Because of a physica l, mental, or emotional condition, do you have difficulty doing errands alone such as visiting a physician's office or shopping No 01/17/2015 9:21 AM EDT AbranAnkitTerrence Shea DUNN No [facility] Mental Status Date Assessment Result Facility 01-17-2015 Because of a physica l, mental, or emotional condition, do you have serious difficulty concentrating, remembering, or making decisions No 01/17/2015 9:21 AM EDT AbranAnkitShea Ocampo LPN No [facility] Clinical Notes 09-27-2021 to 11-02-2024 Patient InstructionsBrandon Boland, - 11/02/2024 8:38 AM EDTTelephone Encounter - Hayley Porras - 08/31/2024 9:43 AM ESTPatient InstructionsPatient Instructions Note Date & Type Note Facility 11-02-2024 Instructions Brandon Boland DO - 11/02/2024 8:48 AM EDT BONE MINERAL DENSITY PATIENT INSTRUCTIONS ======== Bone mineral density testing measures the amount of calcium in certain parts of your bones. This information determines how strong your bones are. The test is used to detect osteoporosis, a disease in which the bone's mineral content and density are low, increasing a person's risk of fractures. The lumbar spine (lower back) and the hip are the skeletal sites usually examined. For the test, remember that: 1. You cannot take this test if you are . 2. Eat a normal diet on the day of the test. 3. Take your medications as you normally would. 4. DO NOT take calcium supplements (such as Tums) for 24 hours before the test. 5. On the day of the test, leave valuables (jewelry or credit cards) at home. 6. The test should be performed prior to oral, rectal or IV contrast studies, or at least 7 days after any of these studies. For the test, you may be asked to wear a hospital gown. You will lie on your back, on a padded table, in a comfortable position. Generally, you can resume your usual activities immediately. documented in this encounter [facility] 11-02-2024 Note HNO ID: [id number] Author: BRANDON BOLAND DO Service: ? Author Type: Physician Type: Progress Notes Filed: 11/02/2024 11:57 Note Text: CC: Shea Mclean is a 69 year old female who presents to the office for follow up HPI: HTN, taking lisinopril, occasional LH and dizziness and fatigue, hasn't had recent cardiac testing. Does have a significant fmhx of heart disease in her maternal family and mother Allergies, getting immunotherapy/allergy shots regularly weekly with benefit. She is hopeful to retire within the next 6-12 months PAST MEDICAL HISTORY Diagnosis Date Abnormal mammogram of right breast 01/21/2023 Allergic rhinitis, cause unspecified on immunotherapy Essential hypertension Liver lesion 07/31/2014 hemangiomas and cysts, repeat MRI in -05/2015 Osteopenia of femoral neck, bilateral 11/2021 Osteopenia of lumbar spine 11/2021 PAST SURGICAL HISTORY Procedure Laterality Date BX BREAST W/DEVICE 1ST LESION STEREOTACTIC GUID Right 09/14/2015 BX OF BREAST; INCISIONAL Right 02/24/2023 Current Outpatient Medications Medication Sig azelastine 0.1% nasal spray Use 1 Excel in each nostril two times a day. lisinopril (ZESTRIL) 10 mg tablet Take 1 tablet by mouth once daily. montelukast (SINGULAIR) 10 mg tablet Take 1 tablet by mouth daily at bedtime. naproxen (NAPROSYN) 500 mg tablet Take 1 tablet by mouth twice daily as needed (for pain/inflammation). Take with food. carBAMazepine ER (CARBATROL) 200 mg 12 hr capsule Take 200 mg by mouth twice daily. aspirin, enteric coated (ASPIRIN LOW DOSE) 81 mg EC tablet Take 1 tablet by mouth once daily. No current facility-administered medications for this visit. ALLERGIES Allergen Reactions Seasonal Allergies Other: See Comments Sinus pressure, rhinitis, sneezing. Social History Tobacco Use Smoking status: Never Smokeless tobacco: Never Vaping Use Vaping status: Never Used Substance Use Topics Alcohol use: No Drug use: No ROS: See HPI PE: BP 130/80 Pulse 76 Temp (Src) 96 (Left Tympanic) Resp 16 Wt 139 lb (63.1kg) LMP 02/21/2011 Gen: AANDOX3, NAD, non-toxic appearing HEENT: PERRLA, EOMs intact b/l, nares without drainage, pharynx without erythema, exudate, lesions, or drainage. Uvula midline. MMM Neck: No LAD, no thyromegaly, no meningismus. ? Right carotid bruit CV: RRR, 1/6 HSM RUSB soft blowing murmur, normal s1s2 Lungs: CTA b/l, no wheezing Skin: No rashes, lesions, or wounds on exposed skin. No edema, normal peripheral pulses ASSESSMENT/PLAN: 1. Hypertension, essential - ICD9: 401.9, ICD10: I10 (primary diagnosis) - Controlled - Continue current medications - Recommend home blood pressure monitoring, to bring results to next visit - Encouraged sodium restriction, DASH or Mediterranean diet - Recommend regular aerobic exercise - ECG COMPLETE - ECHO - PERFLUTREN LIPID MICROSPHERES 1.1 MG/ML INJECTION IN NS 10 ML - SODIUM CHLORIDE 0.9 % (FLUSH) INJECTION SYRINGE - EXERCISE STRESS ECG (WITHOUT IMAGING) - US CAROTID ARTERIES [facility] 2. Encounter for screening mammogram for malignant neoplasm of breast - ICD9: V76.12, ICD10: Z12.31 - Set up for mammogram, yearly mammogram recommended - Encouraged monthly BSE - Increase calcium intake with supplements or by diet (goal of 1932-8381 mg/day - Set up for bone mineral density - Follow up for annual exam in one year. - NERY SCREENING W THUY 3. Disorder of bone and cartilage - ICD9: 733.90, ICD10: M89.9, M94.9 - set up for BMD AP Spine and Hip Unilateral - Reviewed the need for Calcium and Vitamin D supplements and weight bearing exercise as tolerated - DXA-AXIAL SKELETON - BD DXA TRABECULAR BONE SCORE (TBS) 4. Dyslipidemia - ICD9: 272.4, ICD10: E78.5 - Control undetermined, due for labs - Continue current medications - Counseled on healthy diet and regular exercise - ECG COMPLETE - ECHO - PERFLUTREN LIPID MICROSPHERES 1.1 MG/ML INJECTION IN NS 10 ML - SODIUM CHLORIDE 0.9 % (FLUSH) INJECTION SYRINGE - EXERCISE STRESS ECG (WITHOUT IMAGING) - US CAROTID ARTERIES [facility] - LIPID PANEL, FASTING 5. Vitamin D deficiency - ICD9: 268.9, ICD10: E55.9 - VITAMIN D 25 HYDROXY 6. IFG (impaired fasting glucose) - ICD9: 790.21, ICD10: R73.01 Diet controlled - HEMOGLOBIN A1C - COMPREHENSIVE METABOLIC PANEL - COMPLETE BLOOD COUNT AND DIFFERENTIAL 7. Liver hemangioma - ICD9: 228.04, ICD10: D18.03 stable 8. Lightheaded - ICD9: 780.4, ICD10: R42 ECG today ECHO and cardiac stress testing as ordered and labs Need for checking for cardiac risks due to symptoms and + Fmhx - ECG COMPLETE - ECHO - PERFLUTREN LIPID MICROSPHERES 1.1 MG/ML INJECTION IN NS 10 ML - SODIUM CHLORIDE 0.9 % (FLUSH) INJECTION SYRINGE - EXERCISE STRESS ECG (WITHOUT IMAGING) - US CAROTID ARTERIES [facility] - THYROID STIMULATING HORMONE 9. Fatigue, unspecified type - ICD9: 780.79, ICD10: R53.83 ECG today ECHO an (more content not included)... [facility] 11-02-2024 History of Present illness Narrative CC: Shea Mclean is a 69 year old female who presents to the office for follow up HPI: HTN, taking lisinopril, occasional LH and dizziness and fatigue, hasn't had recent cardiac testing. Does have a significant fmhx of heart disease in her maternal family and mother Allergies, getting immunotherapy/allergy shots regularly weekly with benefit. She is hopeful to retire within the next 6-12 months PAST MEDICAL HISTORY Diagnosis Date Abnormal mammogram of right breast 01/21/2023 Allergic rhinitis, cause unspecified on immunotherapy Essential hypertension Liver lesion 07/31/2014 hemangiomas and cysts, repeat MRI in -05/2015 Osteopenia of femoral neck, bilateral 11/2021 Osteopenia of lumbar spine 11/2021 PAST SURGICAL HISTORY Procedure Laterality Date BX BREAST W/DEVICE 1ST LESION STEREOTACTIC GUID Right 09/14/2015 BX OF BREAST; INCISIONAL Right 02/24/2023 Current Outpatient Medications Medication Sig azelastine 0.1% nasal spray Use 1 Excel in each nostril two times a day. lisinopril (ZESTRIL) 10 mg tablet Take 1 tablet by mouth once daily. montelukast (SINGULAIR) 10 mg tablet Take 1 tablet by mouth daily at bedtime. naproxen (NAPROSYN) 500 mg tablet Take 1 tablet by mouth twice daily as needed (for pain/inflammation). Take with food. carBAMazepine ER (CARBATROL) 200 mg 12 hr capsule Take 200 mg by mouth twice daily. aspirin, enteric coated (ASPIRIN LOW DOSE) 81 mg EC tablet Take 1 tablet by mouth once daily. No current facility-administered medications for this visit. ALLERGIES Allergen Reactions Seasonal Allergies Other: See Comments Sinus pressure, rhinitis, sneezing. Social History Tobacco Use Smoking status: Never Smokeless tobacco: Never Vaping Use Vaping status: Never Used Substance Use Topics Alcohol use: No Drug use: No ROS: See HPI PE: BP 130/80 Pulse 76 Temp (Src) 96 (Left Tympanic) Resp 16 Wt 139 lb (63.1kg) LMP 02/21/2011 Gen: A&OX3, NAD, non-toxic appearing HEENT: PERRLA, EOMs intact b/l, nares without drainage, pharynx without erythema, exudate, lesions, or drainage. Uvula midline. MMM Neck: No LAD, no thyromegaly, no meningismus. ? Right carotid bruit CV: RRR, 1/6 HSM RUSB soft blowing murmur, normal s1s2 Lungs: CTA b/l, no wheezing Skin: No rashes, lesions, or wounds on exposed skin. No edema, normal peripheral pulses ASSESSMENT/PLAN: 1. Hypertension, essential - ICD9: 401.9, ICD10: I10 (primary diagnosis) - Controlled - Continue current medications - Recommend home blood pressure monitoring, to bring results to next visit - Encouraged sodium restriction, DASH or Mediterranean diet - Recommend regular aerobic exercise - ECG COMPLETE - ECHO - PERFLUTREN LIPID MICROSPHERES 1.1 MG/ML INJECTION IN NS 10 ML - SODIUM CHLORIDE 0.9 % (FLUSH) INJECTION SYRINGE - EXERCISE STRESS ECG (WITHOUT IMAGING) - US CAROTID ARTERIES [facility] 2. Encounter for screening mammogram for malignant neoplasm of breast - ICD9: V76.12, ICD10: Z12.31 - Set up for mammogram, yearly mammogram recommended - Encouraged monthly BSE - Increase calcium intake with supplements or by diet (goal of 7059-7763 mg/day - Set up for bone mineral density - Follow up for annual exam in one year. - NERY SCREENING W THUY 3. Disorder of bone and cartilage - ICD9: 733.90, ICD10: M89.9, M94.9 - set up for BMD AP Spine and Hip Unilateral - Reviewed the need for Calcium and Vitamin D supplements and weight bearing exercise as tolerated - DXA-AXIAL SKELETON - BD DXA TRABECULAR BONE SCORE (TBS) 4. Dyslipidemia - ICD9: 272.4, ICD10: E78.5 - Control undetermined, due for labs - Continue current medications - Counseled on healthy diet and regular exercise - ECG COMPLETE - ECHO - PERFLUTREN LIPID MICROSPHERES 1.1 MG/ML INJECTION IN NS 10 ML - SODIUM CHLORIDE 0.9 % (FLUSH) INJECTION SYRINGE - EXERCISE STRESS ECG (WITHOUT IMAGING) - US CAROTID ARTERIES [facility] - LIPID PANEL, FASTING 5. Vitamin D deficiency - ICD9: 268.9, ICD10: E55.9 - VITAMIN D 25 HYDROXY 6. IFG (impaired fasting glucose) - ICD9: 790.21, ICD10: R73.01 Diet controlled - HEMOGLOBIN A1C - COMPREHENSIVE METABOLIC PANEL - COMPLETE BLOOD COUNT AND DIFFERENTIAL 7. Liver hemangioma - ICD9: 228.04, ICD10: D18.03 stable 8. Lightheaded - ICD9: 780.4, ICD10: R42 ECG today ECHO and cardiac stress testing as ordered and labs Need for checking for cardiac risks due to symptoms and + Fmhx - ECG COMPLETE - ECHO - PERFLUTREN LIPID MICROSPHERES 1.1 MG/ML INJECTION IN NS 10 ML - SODIUM CHLORIDE 0.9 % (FLUSH) INJECTION SYRINGE - EXERCISE STRESS ECG (WITHOUT IMAGING) - US CAROTID ARTERIES [facility] - THYROID STIMULATING HORMONE 9. Fatigue, unspecified type - ICD9: 780.79, ICD10: R53.83 ECG today ECHO and cardiac stress testing as ordered and labs Need for checking for cardiac risks due to symptoms and + Fmhx - VITAMIN B12 - VITAMIN D 25 HYDROXY Brandon Boland DO Return if no improvement. Follow up with Brandon Boland DO. To ER if develops chest pain, shortness of breath. Discussed risks, benefits, alternatives, and potential side effects of medications. Patient/Guardian expressed understanding and agreed with the plan. See patient instructions. Brandon Boland DO [address] [place] [address] documented in this encounter [facility] 08-31-2024 Telephone encounter Note Prescription Refill Information The patient has been identified by name and date of : Yes Caregiver verified no other encounters exist for this prescription request: Yes Caregiver confirmed with patient/requestor that no other refills are due, in the near future, with this provider at this time: Yes The last office visit in the department: Does the patient have a future office visit with this provider/department: Yes Requested Prescriptions Pending Prescriptions Disp Refills azelastine 0.1% nasal spray 30 mL 2 Sig: Use 1 Excel in each nostril two times a day. Hayley Ramos August 31, 2024 9:43 AM [facility] 08-31-2024 Miscellaneous Notes Prescription Refill Information The patient has been identified by name and date of : Yes Caregiver verified no other encounters exist for this prescription request: Yes Caregiver confirmed with patient/requestor that no other refills are due, in the near future, with this provider at this time: Yes The last office visit in the department: Does the patient have a future office visit with this provider/department: Yes Requested Prescriptions Pending Prescriptions Disp Refills azelastine 0.1% nasal spray 30 mL 2 Sig: Use 1 Excel in each nostril two times a day. Hayley Ramos August 31, 2024 9:43 AM documented in this encounter [facility] 05-06-2024 Telephone encounter Note Prescription Refill Information The patient has been identified by name and date of : Yes Caregiver verified no other encounters exist for this prescription request: Yes Caregiver confirmed with patient/requestor that no other refills are due, in the near future, with this provider at this time: Yes The last office visit in the department: 05-05-24 Does the patient have a future office visit with this provider/department: Yes Requested Prescriptions Pending Prescriptions Disp Refills lisinopril (ZESTRIL) 10 mg tablet 90 tablet 3 Sig: Take 1 tablet by mouth once daily. montelukast (SINGULAIR) 10 mg tablet 90 tablet 3 Sig: Take 1 tablet by mouth daily at bedtime. Cami [facility] May 06, 2024 9:20 AM [facility] 05-06-2024 Miscellaneous Notes Prescription Refill Information The patient has been identified by name and date of : Yes Caregiver verified no other encounters exist for this prescription request: Yes Caregiver confirmed with patient/requestor that no other refills are due, in the near future, with this provider at this time: Yes The last office visit in the department: 05-05-24 Does the patient have a future office visit with this provider/department: Yes Requested Prescriptions Pending Prescriptions Disp Refills lisinopril (ZESTRIL) 10 mg tablet 90 tablet 3 Sig: Take 1 tablet by mouth once daily. montelukast (SINGULAIR) 10 mg tablet 90 tablet 3 Sig: Take 1 tablet by mouth daily at bedtime. Cami Ramos May 06, 2024 9:20 AM documented in this encounter [facility] 05-05-2024 Instructions Brandon Boland DO - 05/05/2024 9:19 AM EST Ask the Chiropractor about if you would benefit from a 4 electrode TENS unit to use on low back and neck as needed documented in this encounter [facility] 05-05-2024 Note HNO ID: [id number] Author: BRANDON BOLAND DO Service: ? Author Type: Physician Type: Progress Notes Filed: 05/05/2024 09:46 Note Text: CC: Shea Mclean is a 68 year old female who presents to the office for follow up HPI: Recently had a low back pain flare up and then neck pain flare up and then struggled with right heel pain. Still some posterior neck discomfort. She states that she has had improvement in her symptoms with use of her chiropractor and adjustments that he has been doing for her. She has been off work due to the pain. Has also been using heating pad intermittently HTN, well controlled on Lisinopril, no CP or dyspnea or dizziness/Lh or edema. HPL, diet controlled Cholesterol, Total Date Value Ref Range Status 02/27/2024 193 <200 mg/dL Final Comment: <200 mg/dL, Desirable 200-239 mg/dL, Borderline high >239 mg/dL, High HDL Cholesterol Date Value Ref Range Status 02/27/2024 72 >39 mg/dL Final Comment: 40-59 mg/dL, Acceptable >59 mg/dL, High: Negative risk factor for coronary heart disease <40 mg/dL, Low: Positive risk factor for coronary heart disease LDL Cholesterol Date Value Ref Range Status 02/27/2024 103 (H) <100 mg/dL Final Comment: <100 mg/dL, Optimal 100-129 mg/dL, Near optimal/above optimal 130-159 mg/dL, Borderline high 160-189 mg/dL, High >189 mg/dL, Very high Secondary prevention optimal LDL Cholesterol levels are recommended to be < 70 mg/dL Triglyceride Date Value Ref Range Status 02/27/2024 90 <150 mg/dL Final Comment: <150 mg/dL, Normal 150-199 mg/dL, Borderline high 200-499 mg/dL, High >499 mg/dL, Very high Glucose (mg/dL) Date Value 02/27/2024 101 01/22/2021 106 Potassium (mmol/L) Date Value 02/27/2024 4.3 01/22/2021 4.6 Sodium (mmol/L) Date Value 02/27/2024 140 01/22/2021 138 Chloride (mmol/L) Date Value 02/27/2024 105 01/22/2021 103 CO2 (mmol/L) Date Value 02/27/2024 24 01/22/2021 25 Creatinine (mg/dL) Date Value 02/27/2024 0.78 01/22/2021 0.72 BUN (mg/dL) Date Value 02/27/2024 15 01/22/2021 12 Anion Gap (mmol/L) Date Value 02/27/2024 11 01/22/2021 10 Calcium (mg/dL) Date Value 01/22/2021 9.6 Calcium, Total (mg/dL) Date Value 02/27/2024 9.6 Protein, Total (g/dL) Date Value 02/27/2024 6.7 01/22/2021 7.3 Albumin (g/dL) Date Value 02/27/2024 4.3 01/22/2021 4.4 Bilirubin, Total (mg/dL) Date Value 02/27/2024 0.5 01/22/2021 0.3 Alkaline Phosphatase (U/L) Date Value 02/27/2024 127 01/22/2021 151 AST (U/L) Date Value 02/27/2024 30 01/22/2021 28 ALT (U/L) Date Value 02/27/2024 12 01/22/2021 17 Hemoglobin (g/dL) Date Value 02/27/2024 14.8 12/25/2020 15.9 12/25/2020 16.0 Hematocrit (%) Date Value 02/27/2024 43.8 12/25/2020 46.7 12/25/2020 47.2 WBC (k/uL) Date Value 02/27/2024 10.81 12/25/2020 8.48 12/25/2020 8.65 PAST MEDICAL HISTORY Diagnosis Date Abnormal mammogram of right breast 01/21/2023 Allergic rhinitis, cause unspecified on immunotherapy Essential hypertension Liver lesion 07/31/2014 hemangiomas and cysts, repeat MRI in -05/2015 Osteopenia of femoral neck, bilateral 11/2021 Osteopenia of lumbar spine 11/2021 PAST SURGICAL HISTORY Procedure Laterality Date BX BREAST W/DEVICE 1ST LESION STEREOTACTIC GUID Right 09/14/2015 BX OF BREAST; INCISIONAL Right 02/24/2023 Social History: Social History Tobacco Use Smoking status: Never Smokeless tobacco: Never Vaping Use Vaping status: Never Used Substance Use Topics Alcohol use: No Drug use: No FAMILY HISTORY Problem Relation Age of Onset Diabetes Mother Ischemic Heart Disease Mother 1975, age 60 Cancer Father STOMACH Hypertension Brother Breast Cancer Other none Colon Cancer Other none Current Outpatient prescriptions: azelastine 0.1% nasal spray Use 1 Excel in each nostril two times a day. montelukast (SINGULAIR) 10 mg tablet Take 1 tablet by mouth daily at bedtime. lisinopril (ZESTRIL) 10 mg tablet Take 1 tablet by mouth once daily. naproxen (NAPROSYN) 500 mg tablet Take 1 tablet by mouth twice daily as needed (for pain/inflammation). Take with food. carBAMazepine ER (CARBATROL) 200 mg 12 hr capsule Take 200 mg by mouth twice daily. aspirin, enteric coated (ASPIRIN LOW DOSE) 81 mg EC tablet Take 1 tablet by mouth once daily. Allergies: ALLERGIES Allergen Reactions Seasonal Allergies Other: See Comments Sinus pressure, rhinitis, sneezing. ROS: See HPI PE: 05/05/24 0845 BP: 128/82 Pulse: 80 Resp: 12 Temp: 36.4 ?C (97.5 ?F) TempSrc: Temporal Weight: 66 kg (145 lb 8.1 oz) Gen: AANDO, NAD, non-toxic appearing, Pleasant, cooperative HEENT: NT/AC, PERRLA,wearing glasses, EOMs intact b/l, nares clear and patent b/l, pharynx without erythema, exudate or lesions. MMM, Uvula midline. EACs without erythema or debris. TMs pearly santos with intact landm (more content not included)... [facility] 05-05-2024 History of Present illness Narrative CC: Shea Mclean is a 68 year old female who presents to the office for follow up HPI: Recently had a low back pain flare up and then neck pain flare up and then struggled with right heel pain. Still some posterior neck discomfort. She states that she has had improvement in her symptoms with use of her chiropractor and adjustments that he has been doing for her. She has been off work due to the pain. Has also been using heating pad intermittently HTN, well controlled on Lisinopril, no CP or dyspnea or dizziness/Lh or edema. HPL, diet controlled Cholesterol, Total Date Value Ref Range Status 02/27/2024 193 <200 mg/dL Final Comment: <200 mg/dL, Desirable 200-239 mg/dL, Borderline high >239 mg/dL, High HDL Cholesterol Date Value Ref Range Status 02/27/2024 72 >39 mg/dL Final Comment: 40-59 mg/dL, Acceptable >59 mg/dL, High: Negative risk factor for coronary heart disease <40 mg/dL, Low: Positive risk factor for coronary heart disease LDL Cholesterol Date Value Ref Range Status 02/27/2024 103 (H) <100 mg/dL Final Comment: <100 mg/dL, Optimal 100-129 mg/dL, Near optimal/above optimal 130-159 mg/dL, Borderline high 160-189 mg/dL, High >189 mg/dL, Very high Secondary prevention optimal LDL Cholesterol levels are recommended to be < 70 mg/dL Triglyceride Date Value Ref Range Status 02/27/2024 90 <150 mg/dL Final Comment: <150 mg/dL, Normal 150-199 mg/dL, Borderline high 200-499 mg/dL, High >499 mg/dL, Very high Glucose (mg/dL) Date Value 02/27/2024 101 01/22/2021 106 Potassium (mmol/L) Date Value 02/27/2024 4.3 01/22/2021 4.6 Sodium (mmol/L) Date Value 02/27/2024 140 01/22/2021 138 Chloride (mmol/L) Date Value 02/27/2024 105 01/22/2021 103 CO2 (mmol/L) Date Value 02/27/2024 24 01/22/2021 25 Creatinine (mg/dL) Date Value 02/27/2024 0.78 01/22/2021 0.72 BUN (mg/dL) Date Value 02/27/2024 15 01/22/2021 12 Anion Gap (mmol/L) Date Value 02/27/2024 11 01/22/2021 10 Calcium (mg/dL) Date Value 01/22/2021 9.6 Calcium, Total (mg/dL) Date Value 02/27/2024 9.6 Protein, Total (g/dL) Date Value 02/27/2024 6.7 01/22/2021 7.3 Albumin (g/dL) Date Value 02/27/2024 4.3 01/22/2021 4.4 Bilirubin, Total (mg/dL) Date Value 02/27/2024 0.5 01/22/2021 0.3 Alkaline Phosphatase (U/L) Date Value 02/27/2024 127 01/22/2021 151 AST (U/L) Date Value 02/27/2024 30 01/22/2021 28 ALT (U/L) Date Value 02/27/2024 12 01/22/2021 17 Hemoglobin (g/dL) Date Value 02/27/2024 14.8 12/25/2020 15.9 12/25/2020 16.0 Hematocrit (%) Date Value 02/27/2024 43.8 12/25/2020 46.7 12/25/2020 47.2 WBC (k/uL) Date Value 02/27/2024 10.81 12/25/2020 8.48 12/25/2020 8.65 PAST MEDICAL HISTORY Diagnosis Date Abnormal mammogram of right breast 01/21/2023 Allergic rhinitis, cause unspecified on immunotherapy Essential hypertension Liver lesion 07/31/2014 hemangiomas and cysts, repeat MRI in Osteopenia of femoral neck, bilateral 11/2021 Osteopenia of lumbar spine 11/2021 PAST SURGICAL HISTORY Procedure Laterality Date BX BREAST W/DEVICE 1ST LESION STEREOTACTIC GUID Right 09/14/2015 BX OF BREAST; INCISIONAL Right 02/24/2023 Social History: Social History Tobacco Use Smoking status: Never Smokeless tobacco: Never Vaping Use Vaping status: Never Used Substance Use Topics Alcohol use: No Drug use: No FAMILY HISTORY Problem Relation Age of Onset Diabetes Mother Ischemic Heart Disease Mother 1975, age 60 Cancer Father STOMACH Hypertension Brother Breast Cancer Other none Colon Cancer Other none Current Outpatient prescriptions: azelastine 0.1% nasal spray Use 1 Excel in each nostril two times a day. montelukast (SINGULAIR) 10 mg tablet Take 1 tablet by mouth daily at bedtime. lisinopril (ZESTRIL) 10 mg tablet Take 1 tablet by mouth once daily. naproxen (NAPROSYN) 500 mg tablet Take 1 tablet by mouth twice daily as needed (for pain/inflammation). Take with food. carBAMazepine ER (CARBATROL) 200 mg 12 hr capsule Take 200 mg by mouth twice daily. aspirin, enteric coated (ASPIRIN LOW DOSE) 81 mg EC tablet Take 1 tablet by mouth once daily. Allergies: ALLERGIES Allergen Reactions Seasonal Allergies Other: See Comments Sinus pressure, rhinitis, sneezing. ROS: See HPI PE: 05/05/24 0845 BP: 128/82 Pulse: 80 Resp: 12 Temp: 36.4 C (97.5 F) TempSrc: Temporal Weight: 66 kg (145 lb 8.1 oz) Gen: A&O, NAD, non-toxic appearing, Pleasant, cooperative HEENT: NT/AC, PERRLA,wearing glasses, EOMs intact b/l, nares clear and patent b/l, pharynx without erythema, exudate or lesions. MMM, Uvula midline. EACs without erythema or debris. TMs pearly santos with intact landmarks b/l. Neck: supple, No cervical LAD, no thyromegaly, no carotid bruits CV: RRR, normal S1 and S2, no murmurs, no gallops, no rubs, Pulses 2+ and symmetric in UE and LE b/l Lungs: normal respiratory effort, CTA b/l, no wheezing or rhonchi or rales Abd: soft, NT, ND, +BS, no hepatosplenomegaly MS: arthritis changes and muscle tension spine Neuro: CN II-XII intact b/l, strength 5/5 b/l UE and LE, DTRs 2/4 UE and LE, sensation intact. Skin: warm, dry, intact, No rashes or lesions on exposed skin. No edema, normal pulses ASSESSMENT/PLAN: 1. Hypertension, essential - ICD9: 401.9, ICD10: I10 (primary diagnosis) - Controlled - Continue current medications - Recommend home blood pressure monitoring, to bring results to next visit - Encouraged sodium restriction, DASH or Mediterranean diet - Recommend regular aerobic exercise - Discussed need for and benefit of weight loss. BMI 24.24 kg/(m^2) 2. Need for influenza vaccination - ICD9: V04.81, ICD10: Z23 - INFLUENZA VACCINE, PRSV FREE, AGE 65+ YR, HIGH DOSE, TRIVALENT (FLUZONE HIGH-DOSE) 3. Need for COVID-19 vaccine - ICD9: V04.89, ICD10: Z23 - PFIZER-BIONTECH COVID-19 VACCINE AGE 12+ YR (COMIRNATY) 4. Dyslipidemia - ICD9: 272.4, ICD10: E78.5 - Controlled - Continue current medications - Counseled on healthy diet and regular exercise 5. Vitamin D deficiency - ICD9: 268.9, ICD10: E55.9 stable 6. IFG (impaired fasting glucose) - ICD9: 790.21, ICD10: R73.01 Stable, diet controlled 7. Neck pain - ICD9: 723.1, ICD10: M54.2 Continue conservative mgmt, consider TENS unit and massage therapy and xrays if symptoms worsen as d/w her today 8. Acute midline low back pain without sciatica - ICD9: 724.2, ICD10: M54.50 Continue conservative mgmt, consider TENS unit and massage therapy and xrays if symptoms worsen as d/w her today Brandon Boland DO To ER if develops chest pain, shortness of breath, or severe worsening of symptoms. Discussed risks, benefits, alternatives, and potential side effects of medications. Patient expressed understanding and agreed with the plan. Brandon Boland DO [address] [place] [address] documented in this encounter [facility] 04-19-2024 Telephone encounter Note Letter mailed to pt home of results. Lilly Altamirano MA [facility] 04-19-2024 Miscellaneous Notes Letter mailed to pt home of results. Lilly Altamirano MA Called Pt and no answer. Pt did not have voicemail set up. Will need to call back. Marija Griffin RN Attempted to contact patient with no answer. Unable to leave a message. Please try again. Hansa Caraballo MA Please make sure patient knows that overall her labs are stable Brandon Boland DO documented in this encounter [facility] 04-17-2024 Telephone encounter Note Called Pt and no answer. Pt did not have voicemail set up. Will need to call back. Marija Griffin, RN [facility] 04-13-2024 Telephone encounter Note Attempted to contact patient with no answer. Unable to leave a message. Please try again. Hansa Caraballo MA [facility] 04-13-2024 Telephone encounter Note Please make sure patient knows that overall her labs are stable Brandon Boland DO [facility] 03-10-2024 Telephone encounter Note Prescription Refill Information The patient has been identified by name and date of : Yes Caregiver verified no other encounters exist for this prescription request: Yes Caregiver confirmed with patient/requestor that no other refills are due, in the near future, with this provider at this time: Yes The last office visit in the department: 12-02-23 Does the patient have a future office visit with this provider/department: Yes Requested Prescriptions Pending Prescriptions Disp Refills azelastine 0.1% nasal spray 30 mL 2 Sig: Use 1 Excel in each nostril two times a day. Cami Ramos March 10, 2024 9:15 AM T [facility] 03-10-2024 Miscellaneous Notes Prescription Refill Information The patient has been identified by name and date of : Yes Caregiver verified no other encounters exist for this prescription request: Yes Caregiver confirmed with patient/requestor that no other refills are due, in the near future, with this provider at this time: Yes The last office visit in the department: 12-02-23 Does the patient have a future office visit with this provider/department: Yes Requested Prescriptions Pending Prescriptions Disp Refills azelastine 0.1% nasal spray 30 mL 2 Sig: Use 1 Excel in each nostril two times a day. Cami Ramos March 10, 2024 9:15 AM documented in this encounter [facility] 03-08-2024 Telephone encounter Note Letter mailed to pt home of results. Lilly Altamirano MA [facility] 03-08-2024 Miscellaneous Notes Letter mailed to pt home of results. Lilly Altamirano MA Attempted to reach pt again, phone just rings and rings . Will need to try back again or send letter. Attempted to contact pt x2. Line rings busy Hansa Caraballo MA Phone rings and rings. Need to try back later. Please let patient know that her mammogram was normal. Recommend annual screening. Vy Dimas PA-C 03/03/2024 documented in this encounter [facility] 03-08-2024 Telephone encounter Note Attempted to reach pt again, phone just rings and rings . Will need to try back again or send letter. [facility] 03-04-2024 Telephone encounter Note Attempted to contact pt x2. Line rings busy Hansa Caraballo MA [facility] 03-03-2024 Telephone encounter Note Phone rings and rings. Need to try back later. [facility] 03-03-2024 Telephone encounter Note Please let patient know that her mammogram was normal. Recommend annual screening. Vy Dimas PA-C 03/03/2024 [facility] 03-03-2024 Note Formatting of this n ote might be different from the original. March 03, 2024 PID: [id number] Shea Mclean [address] [place] [address] Dear Ms. Mclean, We are pleased to inform you that the results of your recent breast imaging exam on 03/03/2024 are normal. Breast tissue can be either dense or not dense. Dense tissue makes it harder to find breast cancer on a mammogram and also raises the risk of developing breast cancer. Your breast tissue is not dense. Talk to your healthcare provider about breast density, risks for breast cancer, and your individual situation. Early detection of cancer is very important. We also understand recommendations regarding breast cancer screening are controversial. Please discuss with your primary care provider which strategy is best for you and whether a mammogram is right for you. Your imaging studies and report will be kept on file at [facility] as part of your permanent medical record and are available for your continuing care. Thank you for allowing us to help in meeting your health care needs. Sincerely, Dr. Amos Interpreting Radiologist [facility] (Normal over 40) [facility] 03-03-2024 Miscellaneous Notes March 03, 2024 PID: [id number] Shea Mclean [address] [place] [address] Dear Pat Caridad, We are pleased to inform you that the results of your recent breast imaging exam on 03/03/2024 are normal. Breast tissue can be either dense or not dense. Dense tissue makes it harder to find breast cancer on a mammogram and also raises the risk of developing breast cancer. Your breast tissue is not dense. Talk to your healthcare provider about breast density, risks for breast cancer, and your individual situation. Early detection of cancer is very important. We also understand recommendations regarding breast cancer screening are controversial. Please discuss with your primary care provider which strategy is best for you and whether a mammogram is right for you. Your imaging studies and report will be kept on file at [facility] as part of your permanent medical record and are available for your continuing care. Thank you for allowing us to help in meeting your health care needs. Sincerely, Dr. Amso Interpreting Radiologist [facility] (Normal over 40) documented in this encounter [facility] 03-03-2024 History of Present illness Narrative Radiology Service Progress Note PATIENT NAME: Shea Mclean DATE OF SERVICE: March 03, 2024 TIME: 9:19 AM PATIENT IDENTITY VERIFICATION COMPLETED USING TWO (2) IDENTIFIERS: Name and Date of confirmed by patient verbally. FALL SCREENING: Has the patient had 2 falls in the last year or 1 fall with injury or currently using an Ambulatory Assistive Device (Walker, Cane, Wheelchair, Crutches, etc.)? No PATIENT GENDER DATA: Female. status: : No status: NO. PATIENT RELEVANT IMPLANT DATA REVIEWED: Not Applicable PATIENT PRESENTS WITH AN IMPLANTABLE OR ATTACHED CAPTAIN/CHECK AIRMAN: No RADIOLOGY DEPARTMENT: Mammography PERIPHERAL IV DATA: Not applicable SIGNED BY: Marychuy Galan March 03, 2024 9:19 AM documented in this encounter [facility] 03-03-2024 Note HNO ID: [id number] Author: VIBHA DUARTE Mammo Tech Service: ? Author Type: Cable Installation Technician Type: Progress Notes Filed: 03/03/2024 09:39 Note Text: Radiology Service Progress Note PATIENT NAME: Shea Mclean DATE OF SERVICE: March 03, 2024 TIME: 9:19 AM PATIENT IDENTITY VERIFICATION COMPLETED USING TWO (2) IDENTIFIERS: Name and Date of confirmed by patient verbally. FALL SCREENING: Has the patient had 2 falls in the last year or 1 fall with injury or currently using an Ambulatory Assistive Device (Walker, Cane, Wheelchair, Crutches, etc.)? No PATIENT GENDER DATA: Female. status: : No status: NO. PATIENT RELEVANT IMPLANT DATA REVIEWED: Not Applicable PATIENT PRESENTS WITH AN IMPLANTABLE OR ATTACHED CAPTAIN/CHECK AIRMAN: No RADIOLOGY DEPARTMENT: Mammography PERIPHERAL IV DATA: Not applicable SIGNED BY: Marychuy Galan March 03, 2024 9:19 AM [facility] 12-29-2023 Telephone encounter Note Prescription Refill Information The patient has been identified by name and date of : Yes Caregiver verified no other encounters exist for this prescription request: Yes Caregiver confirmed with patient/requestor that no other refills are due, in the near future, with this provider at this time: Yes The last office visit in the department: 12/02/23 Does the patient have a future office visit with this provider/department: Yes Requested Prescriptions Pending Prescriptions Disp Refills montelukast (SINGULAIR) 10 mg tablet 30 tablet 3 Sig: Take 1 tablet by mouth daily at bedtime. Shea Ramos December 29, 2023 9:13 AM [facility] 12-29-2023 Miscellaneous Notes Prescription Refill Information The patient has been identified by name and date of : Yes Caregiver verified no other encounters exist for this prescription request: Yes Caregiver confirmed with patient/requestor that no other refills are due, in the near future, with this provider at this time: Yes The last office visit in the department: 12/02/23 Does the patient have a future office visit with this provider/department: Yes Requested Prescriptions Pending Prescriptions Disp Refills montelukast (SINGULAIR) 10 mg tablet 30 tablet 3 Sig: Take 1 tablet by mouth daily at bedtime. Shea Ramos December 29, 2023 9:13 AM documented in this encounter [facility] 12-02-2023 Note HNO ID: [id number] Author: BRANDON BOLAND, DO Service: ? Author Type: Physician Type: Progress Notes Filed: 12/02/2023 17:23 Note Text: CC: Shea Mclean is a 68 year old female who presents to the office for follow up HPI: Overall she is doing well. Has continued to struggle with her nasal congestion and PND symptoms and rhinorrhea with her allergies to dust and working at [employer]. Likely to plan on chcf by spring 2024. She is looking forward to this HTN, well controlled on Lisinopril, no CP or dyspnea or dizziness/Lh or edema. HPL, diet controlled Due for fasting labs Has some fatigue PAST MEDICAL HISTORY Diagnosis Date Abnormal mammogram of right breast 01/21/2023 Allergic rhinitis, cause unspecified on immunotherapy Essential hypertension Liver lesion 07/31/2014 hemangiomas and cysts, repeat MRI in -05/2015 Osteopenia of femoral neck, bilateral 11/2021 Osteopenia of lumbar spine 11/2021 PAST SURGICAL HISTORY Procedure Laterality Date BX BREAST W/DEVICE 1ST LESION STEREOTACTIC GUID Right 09/14/2015 BX OF BREAST; INCISIONAL Right 02/24/2023 Current Outpatient Medications Medication Sig azelastine 0.1% nasal spray Use 1 Excel in each nostril two times a day. montelukast (SINGULAIR) 10 mg tablet Take 1 tablet by mouth daily at bedtime. lisinopril (ZESTRIL) 10 mg tablet Take 1 tablet by mouth once daily. naproxen (NAPROSYN) 500 mg tablet Take 1 tablet by mouth twice daily as needed (for pain/inflammation). Take with food. carBAMazepine ER (CARBATROL) 200 mg 12 hr capsule Take 200 mg by mouth twice daily. aspirin, enteric coated (ASPIRIN LOW DOSE) 81 mg EC tablet Take 1 tablet by mouth once daily. No current facility-administered medications for this visit. ALLERGIES Allergen Reactions Seasonal Allergies Other: See Comments Sinus pressure, rhinitis, sneezing. Social History Tobacco Use Smoking status: Never Smokeless tobacco: Never Vaping Use Vaping Use: Never used Substance Use Topics Alcohol use: No Drug use: No ROS: See HPI PE: BP 138/82 Pulse 76 Temp (Src) 97 (Left Tympanic) Resp 16 Wt 146 lb (66.2kg) LMP 02/21/2011 Gen: AANDOX3, NAD, non-toxic appearing HEENT: PERRLA, EOMs intact b/l, nares without drainage, pharynx without erythema, exudate, lesions, or drainage. Uvula midline. MMM, EAC and TM wnl Neck: No LAD, no thyromegaly, no meningismus. CV: RRR, no murmur Lungs: CTA b/l, no wheezing Skin: No rashes, lesions, or wounds on exposed skin. No edema, normal pulses Abd: soft,NT, ND, normal BS, no masses ASSESSMENT/PLAN: 1. Hypertension, essential - ICD9: 401.9, ICD10: I10 (primary diagnosis) - Controlled - Continue current medications - Recommend home blood pressure monitoring, to bring results to next visit - Encouraged sodium restriction, DASH or Mediterranean diet - Recommend regular aerobic exercise - THYROID STIMULATING HORMONE 2. Liver hemangioma - ICD9: 228.04, ICD10: D18.03 stable 3. IFG (impaired fasting glucose) - ICD9: 790.21, ICD10: R73.01 Diet controlled Recheck labs as ordered. - HEMOGLOBIN A1C - THYROID STIMULATING HORMONE - MAGNESIUM - VITAMIN B12 4. Dyslipidemia - ICD9: 272.4, ICD10: E78.5 - Control undetermined, due for labs - Counseled on healthy diet and regular exercise - COMPREHENSIVE METABOLIC PANEL - COMPLETE BLOOD COUNT AND DIFFERENTIAL - LIPID PANEL BASIC - THYROID STIMULATING HORMONE 5. Encounter for screening mammogram for malignant neoplasm of breast - ICD9: V76.12, ICD10: Z12.31 - Set up for mammogram, yearly mammogram recommended - Encouraged monthly BSE - NERY SCREENING W THUY 6. Vitamin D deficiency - ICD9: 268.9, ICD10: E55.9 Continue supplement 7. Fatigue, unspecified type - ICD9: 780.79, ICD10: R53.83 stable Brandon Boland DO Return if no improvement. Follow up with Brandon Boland DO. To ER if develops chest pain, shortness of breath. Discussed risks, benefits, alternatives, and potential side effects of medications. Patient/Guardian expressed understanding and agreed with the plan. See patient instructions. Brandon Boland DO [address] [place] [address] [facility] 12-02-2023 History of Present illness Narrative CC: Shea Mclean is a 68 year old female who presents to the office for follow up HPI: Overall she is doing well. Has continued to struggle with her nasal congestion and PND symptoms and rhinorrhea with her allergies to dust and working at [employer]. Likely to plan on chcf by spring 2024. She is looking forward to this HTN, well controlled on Lisinopril, no CP or dyspnea or dizziness/Lh or edema. HPL, diet controlled Due for fasting labs Has some fatigue PAST MEDICAL HISTORY Diagnosis Date Abnormal mammogram of right breast 01/21/2023 Allergic rhinitis, cause unspecified on immunotherapy Essential hypertension Liver lesion 07/31/2014 hemangiomas and cysts, repeat MRI in -05/2015 Osteopenia of femoral neck, bilateral 11/2021 Osteopenia of lumbar spine 11/2021 PAST SURGICAL HISTORY Procedure Laterality Date BX BREAST W/DEVICE 1ST LESION STEREOTACTIC GUID Right 09/14/2015 BX OF BREAST; INCISIONAL Right 02/24/2023 Current Outpatient Medications Medication Sig azelastine 0.1% nasal spray Use 1 Excel in each nostril two times a day. montelukast (SINGULAIR) 10 mg tablet Take 1 tablet by mouth daily at bedtime. lisinopril (ZESTRIL) 10 mg tablet Take 1 tablet by mouth once daily. naproxen (NAPROSYN) 500 mg tablet Take 1 tablet by mouth twice daily as needed (for pain/inflammation). Take with food. carBAMazepine ER (CARBATROL) 200 mg 12 hr capsule Take 200 mg by mouth twice daily. aspirin, enteric coated (ASPIRIN LOW DOSE) 81 mg EC tablet Take 1 tablet by mouth once daily. No current facility-administered medications for this visit. ALLERGIES Allergen Reactions Seasonal Allergies Other: See Comments Sinus pressure, rhinitis, sneezing. Social History Tobacco Use Smoking status: Never Smokeless tobacco: Never Vaping Use Vaping Use: Never used Substance Use Topics Alcohol use: No Drug use: No ROS: See HPI PE: BP 138/82 Pulse 76 Temp (Src) 97 (Left Tympanic) Resp 16 Wt 146 lb (66.2kg) LMP 02/21/2011 Gen: A&OX3, NAD, non-toxic appearing HEENT: PERRLA, EOMs intact b/l, nares without drainage, pharynx without erythema, exudate, lesions, or drainage. Uvula midline. MMM, EAC and TM wnl Neck: No LAD, no thyromegaly, no meningismus. CV: RRR, no murmur Lungs: CTA b/l, no wheezing Skin: No rashes, lesions, or wounds on exposed skin. No edema, normal pulses Abd: soft,NT, ND, normal BS, no masses ASSESSMENT/PLAN: 1. Hypertension, essential - ICD9: 401.9, ICD10: I10 (primary diagnosis) - Controlled - Continue current medications - Recommend home blood pressure monitoring, to bring results to next visit - Encouraged sodium restriction, DASH or Mediterranean diet - Recommend regular aerobic exercise - THYROID STIMULATING HORMONE 2. Liver hemangioma - ICD9: 228.04, ICD10: D18.03 stable 3. IFG (impaired fasting glucose) - ICD9: 790.21, ICD10: R73.01 Diet controlled Recheck labs as ordered. - HEMOGLOBIN A1C - THYROID STIMULATING HORMONE - MAGNESIUM - VITAMIN B12 4. Dyslipidemia - ICD9: 272.4, ICD10: E78.5 - Control undetermined, due for labs - Counseled on healthy diet and regular exercise - COMPREHENSIVE METABOLIC PANEL - COMPLETE BLOOD COUNT AND DIFFERENTIAL - LIPID PANEL BASIC - THYROID STIMULATING HORMONE 5. Encounter for screening mammogram for malignant neoplasm of breast - ICD9: V76.12, ICD10: Z12.31 - Set up for mammogram, yearly mammogram recommended - Encouraged monthly BSE - NERY SCREENING W THUY 6. Vitamin D deficiency - ICD9: 268.9, ICD10: E55.9 Continue supplement 7. Fatigue, unspecified type - ICD9: 780.79, ICD10: R53.83 eli Boland, DO Return if no improvement. Follow up with Brandon Boland DO. To ER if develops chest pain, shortness of breath. Discussed risks, benefits, alternatives, and potential side effects of medications. Patient/Guardian expressed understanding and agreed with the plan. See patient instructions. Brandon Boland DO [address] [place] [address] documented in this encounter [facility] 09-04-2023 Miscellaneous Notes Patient has been identified by name and date of : Yes, Provider Dr. Boland Date 09/04/23 Time 1:54 Patient phones for refill(s): Requested Prescriptions Pending Prescriptions Disp Refills azelastine 0.1% nasal spray 30 mL 2 Sig: Use 1 Excel in each nostril two times a day. Date of last office visit in primary care: 06/02/2023 Date of next office visit in primary care: 12/02/2023 Please advise. Thank you. Ewelina Ann LPN. Patient has been identified by name and date of : Yes, Provider Ángel Patient phones for refill(s): Requested Prescriptions Pending Prescriptions Disp Refills azelastine 0.1% nasal spray 30 mL 2 Sig: Use 1 Excel in each nostril two times a day. Date of last office visit in primary care: 06/02/2023 Date of next office visit in primary care: 12/02/2023 Please advise. Thank you. Shea Ramos. documented in this encounter [facility] 08-27-2023 Miscellaneous Notes Pt informed, verbalized understanding. Hansa Caraballo Please let her know that her stool is negative for occult blood. Juanita Burton APRN.[employer] documented in this encounter [facility] 08-20-2023 Miscellaneous Notes Patient has been identified by name and date of : Yes, Provider Dr Boland Date 08/20/23 Time 10:45 am Patient phones for refill(s): Requested Prescriptions Pending Prescriptions Disp Refills montelukast (SINGULAIR) 10 mg tablet 30 tablet 3 Sig: Take 1 tablet by mouth daily at bedtime. Date of last office visit in primary care: 06/02/2023 Date of next office visit in primary care: 12/02/2023 Please advise. Thank you. Kaila Graham LPN. Patient has been identified by name and date of : Yes, Provider Krystian Patient phones for refill(s): Requested Prescriptions Pending Prescriptions Disp Refills montelukast (SINGULAIR) 10 mg tablet 30 tablet 3 Sig: Take 1 tablet by mouth daily at bedtime. Date of last office visit in primary care: 06/02/2023 Date of next office visit in primary care: 12/02/2023 Please advise. Thank you. Shea Ramos. documented in this encounter [facility] 06-02-2023 History of Present illness Narrative CC: Shea Mclean is a 67 year old female who presents to the office for physical HPI: Overall she is doing well. Has continued to struggle with her nasal congestion and PND symptoms and rhinorrhea with her allergies to dust and working at [employer]. Likely to plan on chcf by next summer. She is loking forward to this HTN, well controlled on Lisinopril, no CP or dyspnea or dizziness/Lh or edema. HPL, diet controlled Due for fasting labs Has some fatigue PAST MEDICAL HISTORY Diagnosis Date Abnormal mammogram of right breast 01/21/2023 Allergic rhinitis, cause unspecified on immunotherapy Essential hypertension Liver lesion 07/31/2014 hemangiomas and cysts, repeat MRI in Osteopenia of femoral neck, bilateral 11/2021 Osteopenia of lumbar spine 11/2021 PAST SURGICAL HISTORY Procedure Laterality Date BX BREAST W/DEVICE 1ST LESION STEREOTACTIC GUID Right 09/14/2015 BX OF BREAST; INCISIONAL Right 02/24/2023 Social History: Social History Tobacco Use Smoking status: Never Smokeless tobacco: Never Vaping Use Vaping Use: Never used Substance Use Topics Alcohol use: No Drug use: No FAMILY HISTORY Problem Relation Age of Onset Diabetes Mother Ischemic Heart Disease Mother 1975, age 60 Cancer Father STOMACH Hypertension Brother Breast Cancer Other none Colon Cancer Other none Current Outpatient prescriptions: montelukast (SINGULAIR) 10 mg tablet Take 1 tablet by mouth daily at bedtime. lisinopril (ZESTRIL) 10 mg tablet Take 1 tablet by mouth once daily. azelastine 0.1% nasal spray Use 1 Excel in each nostril twice daily. naproxen (NAPROSYN) 500 mg tablet Take 1 tablet by mouth twice daily as needed (for pain/inflammation). Take with food. carBAMazepine ER (CARBATROL) 200 mg 12 hr capsule Take 200 mg by mouth twice daily. aspirin, enteric coated (ASPIRIN LOW DOSE) 81 mg EC tablet Take 1 tablet by mouth once daily. Allergies: ALLERGIES Allergen Reactions Seasonal Allergies Other: See Comments Sinus pressure, rhinitis, sneezing. ROS: See HPI PE: 06/02/23 0744 BP: 130/80 Pulse: 76 Resp: 16 Temp: 36.3 C (97.4 F) TempSrc: Left Tympanic Weight: 69.4 kg (153 lb) Height: 165 cm (5' 4.96) Gen: A&O, NAD, non-toxic appearing, Pleasant, cooperative HEENT: NT/AC, PERRLA, wearing glasses, EOMs intact b/l, nares congested b/l, pharynx without erythema, exudate or lesions. Uvula midline,MMM. No sinus TTP, EACs without erythema or debris. TMs pearly santos with intact landmarks b/l. Neck: supple, No cervical LAD, no thyromegaly, no carotid bruits CV: RRR, normal S1 and S2, no murmurs, no gallops, no rubs, Pulses 2+ and symmetric in UE and LE b/l Lungs: normal respiratory effort, CTA b/l, no wheezing or rhonchi or rales Abd: soft, overweight, NT, ND, +BS, no hepatosplenomegaly MS: FROM all 4 extremities Mild arthritis changes of spine Neuro: CN II-XII intact b/l, strength 5/5 b/l UE and LE, DTRs 2/4 UE and LE, sensation intact. Skin: warm, dry, intact, No rashes or lesions on exposed skin. No edema, normal pulses ASSESSMENT/PLAN: 1. Well adult exam - ICD9: V70.0, ICD10: Z00.00 (primary diagnosis) - Counseled on healthy diet and regular exercise - Calcium intake with supplements or by diet of 1000 mg/day for under 50, 1775-8850 mg/day for 50+ - LIPID PANEL BASIC - COMP METABOLIC PANEL - CBC + DIFF - HGB A1C - VITAMIN B12 BLOOD - VITAMIN D 25 HYDROXY - TSH BLD 2. Screening for colon cancer - ICD9: V76.51, ICD10: Z12.11 - FECAL OCCULT BLOOD TEST 3. Dyslipidemia - ICD9: 272.4, ICD10: E78.5 - Control undetermined, due for labs - Counseled on healthy diet and regular exercise - Discussed need for and benefit of weight loss. BMI 25.49 kg/(m^2) - LIPID PANEL BASIC - COMP METABOLIC PANEL - CBC + DIFF - TSH BLD 4. IFG (impaired fasting glucose) - ICD9: 790.21, ICD10: R73.01 Recheck labs, diet controlled - HGB A1C - VITAMIN B12 BLOOD - TSH BLD 5. Vitamin D deficiency - ICD9: 268.9, ICD10: E55.9 Continue supplement - VITAMIN D 25 HYDROXY 6. Fatigue, unspecified type - ICD9: 780.79, ICD10: R53.83 Chronic, stable - COMP METABOLIC PANEL - CBC + DIFF - HGB A1C - VITAMIN B12 BLOOD 7. Hypertension, essential - ICD9: 401.9, ICD10: I10 - Controlled - Continue current medications - Recommend home blood pressure monitoring, to bring results to next visit - Encouraged sodium restriction, DASH or Mediterranean diet - Recommend regular aerobic exercise - Discussed need for and benefit of weight loss. BMI 25.49 kg/(m^2) - COMP METABOLIC PANEL - CBC + DIFF 8. Need for RSV vaccination - ICD9: V04.82, ICD10: Z29.11 - RSV VACCINE, BIVALENT (ABRYSVO) Brandon Boland DO To ER if develops chest pain, shortness of breath, or severe worsening of symptoms. Discussed risks, benefits, alternatives, and potential side effects of medications. Patient expressed understanding and agreed with the plan. Brandon Boland DO [address] [place] [address] documented in this encounter [facility] 04-14-2023 Miscellaneous Notes Patient has been identified by name and date of : Yes Patient phones for refill(s): Requested Prescriptions Pending Prescriptions Disp Refills montelukast (SINGULAIR) 10 mg tablet 30 tablet 3 Sig: Take 1 tablet by mouth daily at bedtime. Date of last office visit in primary care: 11/26/22 Date of next office visit in primary care: 06/02/23 Last 2 Encounter Wt Readings: Date: Wt: 03/11/2023 66.2 kg (146 lb) 01/27/2023 66.8 kg (147 lb 3.2 oz) Please advise. Thank you. ANABEL Pool. Patient has been identified by name and date of : Yes Requested Prescriptions Pending Prescriptions Disp Refills montelukast (SINGULAIR) 10 mg tablet 30 tablet 3 Sig: Take 1 tablet by mouth daily at bedtime. RX INSTRUCTIONS: Patient aware RX will be sent to pharmacy. No need to notify patient. Miladis Ross documented in this encounter [facility] 03-19-2023 Miscellaneous Notes WERNER--11/26/22 NOV--06/02/23 LAST REFILL--09/25/22 30ML WITH 2 REFILLS LAST LABS--07/10/22 Patient has been identified by name and date of : Yes Requested Prescriptions Pending Prescriptions Disp Refills azelastine 0.1% nasal spray 30 mL 2 Sig: Use 1 Excel in each nostril twice daily. RX INSTRUCTIONS: Patient aware RX will be sent to pharmacy. No need to notify patient. Alexandria Ramos documented in this encounter [facility] 03-11-2023 History of Present illness Narrative Shea Mclean 1955 REFERRING PHYSICIAN: No ref. provider found CHIEF COMPLAINT: Follow Up (Right breast biopsy) HPI: The patient is a 67 year old female is s/p US guided right needle core breast biopsy done on 02/24/2023. Pathology revealed Benign breast tissue with fibrous stroma Follow up mammograms do not correlate with ultrasound imaging. Radiologist recommended short term follow up surveillance mammograms in May 2023. Patient has no major complaints from breast biopsy. PAST MEDICAL HISTORY Diagnosis Date Abnormal mammogram of right breast 01/21/2023 Allergic rhinitis, cause unspecified on immunotherapy Essential hypertension Liver lesion 07/31/2014 hemangiomas and cysts, repeat MRI in Osteopenia of femoral neck, bilateral 11/2021 Osteopenia of lumbar spine 11/2021 PAST SURGICAL HISTORY Procedure Laterality Date BX BREAST W/DEVICE 1ST LESION STEREOTACTIC GUID Right 09/14/2015 BX OF BREAST; INCISIONAL Right 02/24/2023 Current Outpatient Medications Medication Sig montelukast (SINGULAIR) 10 mg tablet Take 1 tablet by mouth daily at bedtime. azelastine 0.1% nasal spray Use 1 Excel in each nostril twice daily. lisinopril (ZESTRIL, PRINIVIL) 10 mg tablet Take 1 tablet by mouth once daily. azelastine (ASTELIN, ASTEPRO) 0.1% nasal spray Use 1 Excel in each nostril twice daily. naproxen (NAPROSYN) 500 mg tablet Take 1 tablet by mouth twice daily as needed (for pain/inflammation). Take with food. carBAMazepine ER (CARBATROL) 200 mg 12 hr capsule Take 200 mg by mouth twice daily. aspirin, enteric coated (ASPIRIN LOW DOSE) 81 mg EC tablet Take 1 tablet by mouth once daily. No current facility-administered medications for this visit. ALLERGIES: Seasonal Allergies REVIEW OF SYSTEMS: Denies fevers PHYSICAL EXAMINATION: General: The patient is 67 year old female, well nourished, well hydrated in no acute distress. The patient is oriented to time, place, and person. VITALS: Blood pressure 134/82, pulse 70, temperature 36.6 C (97.8 F), height 162.6 cm (5' 4), weight 66.2 kg (146 lb), last menstrual period 02/21/2011, SpO2 96 %. Body mass index is 25.06 kg/m . Head: Normal cephalic, atraumatic Eyes: pupils are equally round, sclera are clear/anicteric Neck is supple with no tracheal deviation Chest/breast: slight ecchymoses noted at biopsy site, no evidence of infection Respiratory: Normal respiratory excursion and pattern. Abdominal exam: benign Extremities: no clubbing, cyanosis or edema. Neuro: non focal Psych: normal mood Assessment IMPRESSION: s/p right breast biopsy PLAN: I have discussed the above with the patient. Will order right breast mammograms for May 2023 and I will call patient with results. Patient acknowledges above. I have answered all questions to the patient s satisfaction and the patient has no further questions. I have confirmed and edited as necessary, the PFSH and ROS obtained by others. . Diagnoses: (R92.8) Abnormal mammogram (primary encounter diagnosis) Medical Decision Making: Risk: Minimal: Minimal risk from testing/treatment Medical Decision Making Level: 2 - Straightforward Ewelina Garcia MD documented in this encounter [facility] 02-24-2023 Instructions Rosey Perdomo RN - 02/24/2023 8:31 AM EDT The following instructions are important for you related to your office visit today with the [facility]. Instructions After OFFICE BASED BREAST BIOPSY After the procedure, Steri-Strips and a dressing will be placed on your small incision. The dressing may be removed five days after the procedure. The dressing is waterproof and you may shower with it in place. The Steri-Strips should be left in place until they fall off, generally 10-14 days. If you have bleeding from the biopsy site, hold pressure with a clean gauze. If the bleeding continues, contact our office immediately. I recommend taking Advil or Tylenol for the discomfort. You should wear a comfortable but somewhat tight fitting bra. If you have significant bruising, an ice pack may improve your discomfort. No swimming, bathtub or hot tub until the area is totally healed, usually 21 days. Please make an appointment to return to our office in 7-10 days. If you note any additional difficulties, questions, or concerns, you should contact our office immediately @ [phone] and ask to be transferred to the General Surgery department. documented in this encounter [facility] 02-24-2023 History of Present illness Narrative UN[employer]ERSAL PROTOCOL / SAFETY CHECKLIST Procedure to be Performed: US guided right needle core breast biopsy Sign In: A Moment of CARE was completed. Personnel directly involved with the procedure wore the appropriate PPE (Personal Protective Equipment). Special equipment: Mammotome. Patient/Surrogate Stated/Verified: PATIENT VERIFIED(optional for EMERGENT procedures): Patient name, Date of , Relevant allergies, and The intended procedure Time Out Communication: Intended patient and procedure match the source documents. Consent documented and matches the intended procedure. Relevant labs, photos, and/or imaging studies have been reviewed. Correct side/site marked and visible. Medications required for procedure verified. No fire risk assessment and interventions applicable. Implant(s) inserted: Correct implant(s) confirmed including size and side. and Expiration date(s) reviewed. Sign Out: SIGN OUT (optional for EMERGENT procedures): All specimen containers correctly labeled. No instruments, equipment or retained foreign bodies applicable. Post-procedure follow-up management communicated and Plan of Care Visit completed when applicable. Rosey Perdomo RN + Shea presents for US guided right breast needle core biopsy. PROCEDURE NOTE: Ultrasound guided breast needle core biopsy with vacuum assistance Indications - BIRADS 4 breast lesion Description of procedure - After informed consent was obtained, patient was brought to the Procedure Room. Appropriate time out protocol was followed. The patient was placed in the supine position. The ultrasound machine was used for identification of the lesion and facilitation of the biopsy in real time imaging. The lesion was identified in the right breast. It was at the 11 o'clock position, 1 cm from the nipple, about mid depth. The lesion was measured at about less than 1 cm in size. The transducer was held in the transverse position. The skin was cleansed with a surgical skin preparation. The skin and subcutaneous tissues were infiltrated with 1% xylocaine. A total of 7 ml was used. A small skin ruma was made medial to the lesion with an 11 blade scalpel. The Mammotome Elite device was then positioned into the patient's breast at the lesion site. Ultrasound imaging pictures were captured. Using the vacuum suctioning of the Mammotome device, several core samples of breast tissue were obtained. This was done, simultaneously visualizing with the ultrasound transducer. Once adequate sampling was determined to be done, the Mammotome device was removed and a marker clip was placed at the biopsy site (lateral to lesion), using ultrasound transducer guidance. Hemostasis was achieved by pressure. No evidence of active bleeding was noted after pressure applied for a period of time. Steristrips were placed to reapproximate the wound edges. Sterile dressing was applied over this. Patient tolerated procedure well. Complications - none EBL - minimal PLAN: Patient to follow up next week for wound check and discussion of pathology results Patient was given wound care instructions by clinic staff. documented in this encounter [facility] 02-17-2023 Miscellaneous Notes Order placed Brandon Boland DO Patient scheduled for nurse visit 03/05/23 to receive Shingrix vaccine. Please place order at this time. Stacy Sales LPN documented in this encounter [facility] 01-27-2023 Nurse Note REVIEW OF SYSTEMS: General: The patient denies fatigue, denies weight loss, denies weight gain, denies feeling hot, and denies feelings of cold. Eyes: The patient denies glaucoma, denies eye injury/surgery, does not wear glasses or contacts. Ear/Nose/Throat: The patient NOTES allergies, denies hayfever, denies ear infections, and denies bloody noses. Cardiovascular: The patient denies chest pain, denies heart disease, NOTES high blood pressure,denies cardiac stent, denies prior heart attack, denies irregular heart beat, NOTES high cholesterol, denies poor circulation, denies heart failure, other cardiac issues, denies claudication, denies cold feet, denies peripheral arterial stent. Respiratory: The patient denies tuberculosis, NOTES pneumonia, denies frequent cough, denies pulmonary embolism, denies shortness of breath, and denies coughing up blood. Gastrointestinal: The patient denies difficulty swallowing, denies acid reflux, denies ulcers, denies vomiting, denies jaundice/hepatitis, denies gallbladder problems, denies black or tarry stools, denies hemorrhoids, denies bleeding from rectum, denies diverticulitis, denies constipation, denies diarrhea, denies loss of stool control, and denies hernias. Kidney/Bladder: The patient denies kidney stones, denies urine infections, and denies bloody urine. Skin: The patient denies a history of skin cancer, denies bleeding/changing moles, and denies a history of skin rash. Neurologic: The patient denies a history of epilepsy/convulsions, denies headaches, denies head/spinal injuries, and denies stroke/TIA. Psychiatric: The patient denies psychiatric medications, denies depression, and denies voices, denies substance abuse. Endocrine: The patient denies thyroid disorders, denies diabetes, and denies hormonal problems. Hematologic: The patient denies a history of bruising, denies bleeding, and denies anemia, denies blood clots. Infections: The patient denies a history of measles and mumps, denies rheumatic fever, and denies sexually transmitted diseases. Musculoskeletal: The patient denies back pain/injury, denies back problems, denies sciatica, denies knee/foot trouble, denies arthritis, or denies gout. When was patient's last Mammogram screening? 12/2022 Last Colonoscopy: n/a Evelyn Cordova LPN documented in this encounter [facility] 01-27-2023 History of Present illness Narrative Shea Mclean 1955 REFERRING PHYSICIAN: No ref. provider found CHIEF COMPLAINT: Consult (Abnormal mammogram and ultrasound. ) HPI: The patient is a 67 year old female presents with abnormal right breast radiographs. She denies palpable breast masses She denies nipple discharge. She denies chronic breast pain. She notes no breast or ovarian cancer in her family. Her gynecological history is as follows: menarche onset at age 15, G0, denies exogenous hormones use, menopause mid 50s She denies cigarettes use Breast radiographs - 11/28/2022 mammograms abnormal lesion defer to US; 01/21/2023 US right breast 11:00, 1 cm FN 0.6 cm PAST MEDICAL HISTORY Diagnosis Date Abnormal mammogram of right breast 01/21/2023 Allergic rhinitis, cause unspecified on immunotherapy Essential hypertension Liver lesion 07/31/2014 hemangiomas and cysts, repeat MRI in Osteopenia of femoral neck, bilateral 11/2021 Osteopenia of lumbar spine 11/2021 PAST SURGICAL HISTORY Procedure Laterality Date BX BREAST W/DEVICE 1ST LESION STEREOTACTIC GUID Right 09-14-15 Current Outpatient Medications Medication Sig montelukast (SINGULAIR) 10 mg tablet Take 1 tablet by mouth daily at bedtime. azelastine 0.1% nasal spray Use 1 Excel in each nostril twice daily. lisinopril (ZESTRIL, PRINIVIL) 10 mg tablet Take 1 tablet by mouth once daily. azelastine (ASTELIN, ASTEPRO) 0.1% nasal spray Use 1 Excel in each nostril twice daily. naproxen (NAPROSYN) 500 mg tablet Take 1 tablet by mouth twice daily as needed (for pain/inflammation). Take with food. carBAMazepine ER (CARBATROL) 200 mg 12 hr capsule Take 200 mg by mouth twice daily. aspirin, enteric coated (ASPIRIN LOW DOSE) 81 mg EC tablet Take 1 tablet by mouth once daily. No current facility-administered medications for this visit. ALLERGIES: Seasonal Allergies PERSONAL HISTORY: Social History Tobacco Use Smoking status: Never Smokeless tobacco: Never Vaping Use Vaping Use: Never used Substance Use Topics Alcohol use: No Drug use: No FAMILY HISTORY Problem Relation Age of Onset Diabetes Mother Ischemic Heart Disease Mother 1975, age 60 Cancer Father STOMACH Hypertension Brother Breast Cancer Other none Colon Cancer Other none The review of systems data was entered by the nurse and reviewed by me Nursing Notes: Evelyn Cordova LPN 01/27/2023 9:03 AM Signed REVIEW OF SYSTEMS: General: The patient denies fatigue, denies weight loss, denies weight gain, denies feeling hot, and denies feelings of cold. Eyes: The patient denies glaucoma, denies eye injury/surgery, does not wear glasses or contacts. Ear/Nose/Throat: The patient NOTES allergies, denies hayfever, denies ear infections, and denies bloody noses. Cardiovascular: The patient denies chest pain, denies heart disease, NOTES high blood pressure,denies cardiac stent, denies prior heart attack, denies irregular heart beat, NOTES high cholesterol, denies poor circulation, denies heart failure, other cardiac issues, denies claudication, denies cold feet, denies peripheral arterial stent. Respiratory: The patient denies tuberculosis, NOTES pneumonia, denies frequent cough, denies pulmonary embolism, denies shortness of breath, and denies coughing up blood. Gastrointestinal: The patient denies difficulty swallowing, denies acid reflux, denies ulcers, denies vomiting, denies jaundice/hepatitis, denies gallbladder problems, denies black or tarry stools, denies hemorrhoids, denies bleeding from rectum, denies diverticulitis, denies constipation, denies diarrhea, denies loss of stool control, and denies hernias. Kidney/Bladder: The patient denies kidney stones, denies urine infections, and denies bloody urine. Skin: The patient denies a history of skin cancer, denies bleeding/changing moles, and denies a history of skin rash. Neurologic: The patient denies a history of epilepsy/convulsions, denies headaches, denies head/spinal injuries, and denies stroke/TIA. Psychiatric: The patient denies psychiatric medications, denies depression, and denies voices, denies substance abuse. Endocrine: The patient denies thyroid disorders, denies diabetes, and denies hormonal problems. Hematologic: The patient denies a history of bruising, denies bleeding, and denies anemia, denies blood clots. Infections: The patient denies a history of measles and mumps, denies rheumatic fever, and denies sexually transmitted diseases. Musculoskeletal: The patient denies back pain/injury, denies back problems, denies sciatica, denies knee/foot trouble, denies arthritis, or denies gout. When was patient's last Mammogram screening? 12/2022 Last Colonoscopy: n/a Evelyn Cordova LPN PHYSICAL EXAMINATION: General: The patient is 67 year old female, well nourished, well hydrated in no acute distress. The patient is oriented to time, place, and person. VITALS: Blood pressure 132/80, pulse 86, temperature 36.3 C (97.3 F), height 162.6 cm (5' 4), weight 66.8 kg (147 lb 3.2 oz), last menstrual period 02/21/2011, SpO2 96 %. Body mass index is 25.27 kg/m . Head - Normocephalic. EOM intact with sclera clear and no icterus noted. Wearing glasses. Mouth with mucus membranes moist. Neck - supple with no jugular venous distention noted. Trachea is midline.. No thyroid enlargement or thyroid nodules detected. No masses noted. Chest/breast - no asymmetry of breasts noted, no suspicious skin lesions noted, no nipple discharge and both nipples everted, no breast masses noted, US of right breast done to determine if lesion can be visualized, I can visualize the lesion at 10 to 11:00 about 2 cm from nipple Lungs - clear to auscultation. Normal breath sounds. No rales/rhonchi/wheezing noted. No labored breathing noted, such as retractions. No cough heard. Heart - normal S1 and S2 auscultated. No rubs/clicks/murmurs noted. Regular rate. Abdomen - soft and benign. Extremities - no calf tenderness noted. No pitting edema noted. Skin - normal skin integrity. Lymph - no cervical adenopathy detected, no supraclavicular adenopathy detected, no axillary adenopathy detected Neurological - gait normal, no focal deficits noted Psych - calm and appropriate Assessment IMPRESSION: abnormal ultrasound of breast PLAN: I have discussed the above with the patient. I have reviewed the abnormal breast radiographs I have offered US guided right needle core breast biopsy.. I have explained the procedure to the patient. To be done in the office using local anesthesia I have counseled the patient as to the risks of the procedure, including but not limited to: infection, bleeding, injury to any blood vessels/nerves, scar tissue, missing the lesion, wound infections, complications of anesthesia, etc. - the patient understands. The patient wishes to proceed. I have answered all questions to the patient s satisfaction and the patient has no further questions. I have confirmed and edited as necessary, the PFSH and ROS obtained by others. . Diagnoses: (R92.8) Abnormal ultrasound of breast (primary encounter diagnosis) (R92.8) Abnormal mammogram Return to Clinic: The patient will be scheduled for office procedure as above. I spent a total of 36 minutes on the date of the service which included preparing to see the patient with review of any pertinent laboratory studies/radiological imaging/medical records, [id number] patient care, obtaining oral medical history from the patient in this encounter, performing a medically appropriate examination, counseling and educating the patient/family/caregiver, performing ultrasound examination, and ordering and/or scheduling of medications/tests/procedures, and completing appropriate medical documentation. Ewelina Garcia MD documented in this encounter [facility] 01-21-2023 History of Present illness Narrative Radiology Service Progress Note PATIENT NAME: Shea Mclean DATE OF SERVICE: January 21, 2023 TIME: 8:27 AM PATIENT IDENTITY VERIFICATION COMPLETED USING TWO (2) IDENTIFIERS: Name and Date of confirmed by patient verbally. FALL SCREENING: Has the patient had 2 falls in the last year or 1 fall with injury or currently using an Ambulatory Assistive Device (Walker, Cane, Wheelchair, Crutches, etc.)? No PATIENT GENDER DATA: Female. status: : No status: NO. PATIENT RELEVANT IMPLANT DATA REVIEWED: Not Applicable RADIOLOGY DEPARTMENT: Mammography PERIPHERAL IV DATA: Not applicable SIGNED BY: RT Silas(R) January 21, 2023 8:27 AM documented in this encounter [facility] 01-08-2023 History of Present illness Narrative CC: Patient presents with: Cough: Chest congestion x 3 days HPI: Shea Mclean is a 67 year old female who presents to the office with complaint of chest congestion, head congestion, and cough, nonproductive for a few days. Symptoms are staying the same. Associated symptoms includes hoarse voice. Denies fever, nausea, vomiting , diarrhea, and pleuritic pain. Treatments tried include nothing so far. with no relief of symptoms. Sick contacts: unknown. History of asthma, frequent episodes of bronchitis, chronic bronchitis, bronchiectasis or COPD: No Smoker: No Seasonal/environmental allergies: No The ROS is otherwise negative. The patient's pmh, medications, allergies, and past visits are reviewed. PHYSICAL EXAM: BP 142/88 Pulse 95 Temp 36.7 C (98 F) Resp 21 Wt 66.2 kg (146 lb) LMP 02/21/2011 SpO2 98% BMI 24.32 kg/m General appearance: alert, cooperative, pleasant, in no acute distress Head: Normocephalic Eyes: EOM's intact, conjunctiva pink and moist, no icterus, sclera white, non-injected Ears: Right ear: External ear/canal- Normal, TM - clear with good landmarks. Left ear: External ear/canal- Normal, TM - clear with good landmarks Oropharynx:moist without lesions, No erythema, exudates or tonsillar hypertrophy. Heart: Negative. RRR without obvious murmur, gallop, or rubs. No ectopy. Lungs: clear to auscultation, without rales or wheeze, good air exchange PAST MEDICAL HISTORY Diagnosis Date Allergic rhinitis, cause unspecified on immunotherapy Essential hypertension Liver lesion 07/31/2014 hemangiomas and cysts, repeat MRI in Osteopenia of femoral neck, bilateral 11/2021 Osteopenia of lumbar spine 11/2021 PAST SURGICAL HISTORY Procedure Laterality Date BX BREAST W/DEVICE 1ST LESION STEREOTACTIC GUID Right 09-14-15 ALLERGIES Seasonal Allergies MEDICATIONS montelukast (SINGULAIR) 10 mg tablet Take 1 tablet by mouth daily at bedtime. azelastine 0.1% nasal spray Use 1 Excel in each nostril twice daily. lisinopril (ZESTRIL, PRINIVIL) 10 mg tablet Take 1 tablet by mouth once daily. azelastine (ASTELIN, ASTEPRO) 0.1% nasal spray Use 1 Excel in each nostril twice daily. naproxen (NAPROSYN) 500 mg tablet Take 1 tablet by mouth twice daily as needed (for pain/inflammation). Take with food. carBAMazepine ER (CARBATROL) 200 mg 12 hr capsule Take 200 mg by mouth twice daily. aspirin, enteric coated (ASPIRIN LOW DOSE) 81 mg EC tablet Take 1 tablet by mouth once daily. FAMILY HISTORY Problem Relation Age of Onset Diabetes Mother Ischemic Heart Disease Mother 1975, age 60 Cancer Father STOMACH Hypertension Brother Breast Cancer Other none Colon Cancer Other none Social History Tobacco Use Smoking status: Never Smokeless tobacco: Never Vaping Use Vaping Use: Never used Substance Use Topics Alcohol use: No Drug use: No ASSESSMENT/PLAN: 1. Sinus congestion - ICD9: 478.19, ICD10: R09.81 Potential red flag symptoms discussed with the patient. Reviewed appropriate action plan to take if red flag symptoms occur. Patient agreeable to treatment plan. We will follow-up if signs and symptoms seem to be getting worse not better. Katherin Contreras APRN.CNP documented in this encounter [facility] 01-06-2023 Miscellaneous Notes Last office visit: 11/26/22 F/u scheduled: 06/02/23 Lilly Altamirano Ma Pharmacy verified in Epic Patient has been identified by name and date of : Yes Patient aware RX will be sent to pharmacy. No need to notify patient. Patient phones for refill(s): Requested Prescriptions Pending Prescriptions Disp Refills montelukast (SINGULAIR) 10 mg tablet 30 tablet 2 Sig: Take 1 tablet by mouth daily at bedtime. Date of last office visit : 11/26/2022 Date of next office visit : 03/05/2023 Last 2 Encounter Wt Readings: Date: Wt: 11/26/2022 67.6 kg (149 lb) 05/29/2022 69.9 kg (154 lb) Please advise. Cami Ramos documented in this encounter [facility] 12-11-2022 Miscellaneous Notes Attempted to reach pt again this is third attempt. Phone just continues to ring. Will send letter. TC patient, patient's phone just rings, no answer. Tiffani Pascal RN Called phone rings and rings no machine picks up. Will need to try again. Please let patient know that her screening mammogram showed a possible asymmetry in the right breast. They are recommending additional imaging to further evaluate. Imaging ordered. Please help patient schedule. Vy Dimas PA-C 12/09/2022 documented in this encounter [facility] 11-26-2022 History of Present illness Narrative Depression screening tool completed and reviewed. Based on score and interview, patient is not at risk for depression. Screening tool discussed with patient, and I recommended no further intervention at this time CC: Shea Mclean is a 67 year old female who presents to the office for follow up HPI: HTN, well controlled, taking lisinopril as prescribed, no CP or dyspnea or dizziness/LH or edema Allergies. Getting immunotherapy per specialist. Trigeminal neuralgia, right face, better with use of Carbamazepine. Mild fatigue symptoms, chronic Going to consider getting shingles vaccine PAST MEDICAL HISTORY Diagnosis Date Allergic rhinitis, cause unspecified on immunotherapy Essential hypertension Liver lesion 07/31/2014 hemangiomas and cysts, repeat MRI in Osteopenia of femoral neck, bilateral 11/2021 Osteopenia of lumbar spine 11/2021 PAST SURGICAL HISTORY Procedure Laterality Date BX BREAST W/DEVICE 1ST LESION STEREOTACTIC GUID Right 09-14-15 Social History: Social History Tobacco Use Smoking status: Never Smokeless tobacco: Never Vaping Use Vaping Use: Never used Substance Use Topics Alcohol use: No Drug use: No FAMILY HISTORY Problem Relation Age of Onset Diabetes Mother Ischemic Heart Disease Mother 1975, age 60 Cancer Father STOMACH Hypertension Brother Breast Cancer Other none Colon Cancer Other none Current Outpatient prescriptions: azelastine 0.1% nasal spray Use 1 Excel in each nostril twice daily. montelukast (SINGULAIR) 10 mg tablet Take 1 tablet by mouth daily at bedtime. lisinopril (ZESTRIL, PRINIVIL) 10 mg tablet Take 1 tablet by mouth once daily. azelastine (ASTELIN, ASTEPRO) 0.1% nasal spray Use 1 Excel in each nostril twice daily. naproxen (NAPROSYN) 500 mg tablet Take 1 tablet by mouth twice daily as needed (for pain/inflammation). Take with food. carBAMazepine ER (CARBATROL) 200 mg 12 hr capsule Take 200 mg by mouth twice daily. aspirin, enteric coated (ASPIRIN LOW DOSE) 81 mg EC tablet Take 1 tablet by mouth once daily. Allergies: ALLERGIES Allergen Reactions Seasonal Allergies Other: See Comments Sinus pressure, rhinitis, sneezing. ROS: See HPI PE: 11/26/22 0922 BP: 138/80 Pulse: 64 Resp: 16 Temp: (!) 35.6 C (96 F) TempSrc: Left Tympanic Weight: 67.6 kg (149 lb) Gen: A&O, NAD, non-toxic appearing, Pleasant, cooperative HEENT: NT/AC, PERRLA, wearing glasses, EOMs intact b/l, nares clear and patent b/l, pharynx without erythema, exudate or lesions. Uvula midline. MMM, EACs without erythema or debris. TMs pearly santos with intact landmarks b/l. Neck: supple, No cervical LAD, no thyromegaly, no carotid bruits CV: RRR, normal S1 and S2, no murmurs, no gallops, no rubs, Pulses 2+ and symmetric in UE and LE b/l Lungs: normal respiratory effort, CTA b/l, no wheezing or rhonchi or rales Abd: soft, NT, ND, +BS, no hepatosplenomegaly MS: FROM all 4 extremities Neuro: CN II-XII intact b/l, strength 5/5 b/l UE and LE, DTRs 2/4 UE and LE, sensation intact. Skin: warm, dry, intact, No rashes or lesions on exposed skin. No edema, normal pulses ASSESSMENT/PLAN: 1. Essential hypertension, benign - ICD9: 401.1, ICD10: I10 (primary diagnosis) - good control - Continue current medication(s) - Encouraged dietary sodium restriction/DASH diet - Recommended regular aerobic exercise. - Recommend home blood pressure monitoring, to bring results in on next visit - Goal of BP <130/80 2. IFG (impaired fasting glucose) - ICD9: 790.21, ICD10: R73.01 - continue diet control 3. Dyslipidemia - ICD9: 272.4, ICD10: E78.5 - suboptimal control - Encouraged following a low fat, low cholesterol diet. - Discussed the benefits of regular aerobic exercise and weight loss. 4. Vitamin D deficiency - ICD9: 268.9, ICD10: E55.9 - continue supplement 5. Fatigue, unspecified type - ICD9: 780.79, ICD10: R53.83 stable Brandon Boland DO To ER if develops chest pain, shortness of breath, or severe worsening of symptoms. Discussed risks, benefits, alternatives, and potential side effects of medications. Patient expressed understanding and agreed with the plan. Brandon Boland DO [address] [place] [address] . documented in this encounter [facility] 09-25-2022 Miscellaneous Notes Werner--05/29/22 Nov--11/26/22 Last refill--06/06/22 30 with 2 refill- Last labs--07/10/22 Patient has been identified by name and date of : Yes Requested Prescriptions Pending Prescriptions Disp Refills azelastine 0.1% nasal spray 30 mL 2 Sig: Use 1 Excel in each nostril twice daily. montelukast (SINGULAIR) 10 mg tablet 30 tablet 2 Sig: Take 1 tablet by mouth daily at bedtime. RX INSTRUCTIONS: Patient aware RX will be sent to pharmacy. No need to notify patient. Delaney Knight documented in this encounter [facility] 08-06-2022 Miscellaneous Notes Pt. informed. Please inform patient that her RUQ ultrasound shows that she has gallstones. If she is having any pain, then recommend follow up with general surgeon Brandon Boland DO documented in this encounter [facility] 07-19-2022 Miscellaneous Notes Attempted to reach pt by phone without success. No voice mail set up.. Letter mailed to pt asking her to call the office for results and further instructions on testing. Rosie Li LPN TC to patient - no option to LM. Will try again later. Attempted to reach patient at number listed. No answer. No VM available at this time. Please try patient again. Thank you. Please inform patient that her labs are improving but her cholesterol is still elevated and her alkaline phosphatase is also still slightly elevated I would like her to have a RUQ US to make sure if there is fatty liver disease due to the cholesterol Needs to be following a low fat diet as well Brandon Boland DO . documented in this encounter [facility] 07-05-2022 Miscellaneous Notes T/c to pt phone rings and rings. Third attempt to reach pt. Letter sent to home address. 2nd attempt to reach patient with no answer. Line rang busy. Hansa Garcia Ma Attempted to contact pt and line rang busy. Will need to try again. Hansa Garcia Ma Please let Shea know that her stool is negative for occult blood. Juanita Burton APRN.CHRISTOPHER documented in this encounter [facility] 05-29-2022 History of Present illness Narrative CC: Shea Mclean is a 66 year old female who presents to the office to establish care. HPI: HTN, well controlled, taking lisinopril as prescribed, no CP or dyspnea or dizziness/LH or edema Allergies. Getting immunotherapy per specialist. Trigeminal neuralgia, right face, better with use of Carbamazepine. Mild fatigue symptoms, chronic PAST MEDICAL HISTORY Diagnosis Date Allergic rhinitis, cause unspecified on immunotherapy Essential hypertension Liver lesion 07/31/2014 hemangiomas and cysts, repeat MRI in Osteopenia of femoral neck, bilateral 11/2021 Osteopenia of lumbar spine 11/2021 PAST SURGICAL HISTORY Procedure Laterality Date BX BREAST W/DEVICE 1ST LESION STEREOTACTIC GUID Right 09-14-15 Social History: Social History Tobacco Use Smoking status: Never Smokeless tobacco: Never Vaping Use Vaping Use: Never used Substance Use Topics Alcohol use: No Drug use: No FAMILY HISTORY Problem Relation Age of Onset Diabetes Mother Ischemic Heart Disease Mother 1975, age 60 Cancer Father STOMACH Hypertension Brother Breast Cancer Other none Colon Cancer Other none Current Outpatient prescriptions: lisinopril (ZESTRIL, PRINIVIL) 10 mg tablet Take 1 tablet by mouth once daily. azelastine (ASTELIN, ASTEPRO) 0.1% nasal spray Use 1 Excel in each nostril twice daily. montelukast (SINGULAIR) 10 mg tablet Take 1 tablet by mouth daily at bedtime. naproxen (NAPROSYN) 500 mg tablet Take 1 tablet by mouth twice daily as needed (for pain/inflammation). Take with food. carBAMazepine ER (CARBATROL) 200 mg 12 hr capsule Take 200 mg by mouth twice daily. aspirin, enteric coated (ASPIRIN LOW DOSE) 81 mg EC tablet Take 1 tablet by mouth once daily. Allergies: ALLERGIES Allergen Reactions Seasonal Allergies Other: See Comments Sinus pressure, rhinitis, sneezing. ROS: See HPI PE: 05/29/22 1200 BP: 116/80 Pulse: 72 Resp: 16 Temp: 36.1 C (97 F) TempSrc: Right Tympanic Weight: 69.9 kg (154 lb) Height: 165 cm (5' 4.96) Gen: A&O, NAD, non-toxic appearing, Pleasant, cooperative HEENT: NT/AC, PERRLA, wearing glasses, EOMs intact b/l, nares clear and patent b/l, pharynx without erythema, exudate or lesions. MMM, Uvula midline. EACs without erythema or debris. TMs pearly santos with intact landmarks b/l. Neck: supple, No cervical LAD, no thyromegaly, no carotid bruits CV: RRR, normal S1 and S2, no murmurs, no gallops, no rubs, Pulses 2+ and symmetric in UE and LE b/l Lungs: normal respiratory effort, CTA b/l, no wheezing or rhonchi or rales Abd: soft, NT, ND, +BS, no hepatosplenomegaly MS: FROM all 4 extremities Neuro: CN II-XII intact b/l, strength 5/5 b/l UE and LE, DTRs 2/4 UE and LE, sensation intact. Skin: warm, dry, intact, No rashes or lesions on exposed skin. No edema, normal pulses ASSESSMENT/PLAN: 1. Essential hypertension, benign - ICD9: 401.1, ICD10: I10 (primary diagnosis) - good control - Continue current medication(s) - Encouraged dietary sodium restriction/DASH diet - Recommended regular aerobic exercise. - Recommend home blood pressure monitoring, to bring results in on next visit - Goal of BP <130/80 2. IFG (impaired fasting glucose) - ICD9: 790.21, ICD10: R73.01 Recheck fasting labs. - HGB A1C - VITAMIN B12 BLOOD 3. Dyslipidemia - ICD9: 272.4, ICD10: E78.5 - to be determined upon return of lab results - Encouraged following a low fat, low cholesterol diet. - Discussed the benefits of regular aerobic exercise and weight loss. - LIPID PANEL BASIC 4. Vitamin D deficiency - ICD9: 268.9, ICD10: E55.9 - continue supplement - VITAMIN D 25 HYDROXY 5. Hypertension, essential - ICD9: 401.9, ICD10: I10 - good control - Continue current medication(s) - Encouraged dietary sodium restriction/DASH diet - Recommended regular aerobic exercise. - Recommend home blood pressure monitoring, to bring results in on next visit - Goal of BP <130/80 6. Fatigue, unspecified type - ICD9: 780.79, ICD10: R53.83 - recheck labs - COMP METABOLIC PANEL - CBC + DIFF - VITAMIN D 25 HYDROXY - VITAMIN B12 BLOOD 7. Need for pneumococcal vaccination - ICD9: V03.82, ICD10: Z23 - PNEUMOCOCCAL VACCINE (PREVNAR 20) 8. Screening for colon cancer - ICD9: V76.51, ICD10: Z12.11 - FECAL OCCULT BLOOD TEST Brandon L Boland, DO To ER if develops chest pain, shortness of breath, or severe worsening of symptoms. Discussed risks, benefits, alternatives, and potential side effects of medications. Patient expressed understanding and agreed with the plan. Brandon Boland DO [address] [place] [address] documented in this encounter [facility] 04-01-2022 Miscellaneous Notes The following approved medication requests have been transmitted electronically. Requested Prescriptions Signed Prescriptions Disp Refills lisinopril (ZESTRIL, PRINIVIL) 10 mg tablet 90 tablet 3 Sig: Take 1 tablet by mouth once daily. Authorizing Provider: BRANDON BOLAND Ordering User: JUANITA BURTON azelastine (ASTELIN, ASTEPRO) 0.1% nasal spray 30 mL 2 Sig: Use 1 Excel in each nostril twice daily. Authorizing Provider: BRANDON BOLAND Ordering User: JUANITA BURTON APRN.CNP Last office visit: 11/27/21 F/u scheduled: 05/29/22 Lilly Altamirano [facility] verified in [facility] Patient has been identified by name and date of : Yes Patient aware RX will be sent to pharmacy. No need to notify patient. Patient phones for refill(s): Requested Prescriptions Pending Prescriptions Disp Refills lisinopril (ZESTRIL, PRINIVIL) 10 mg tablet 90 tablet 3 Sig: Take 1 tablet by mouth once daily. azelastine (ASTELIN, ASTEPRO) 0.1% nasal spray 30 mL 2 Sig: Use 1 Excel in each nostril twice daily. Date of last office visit : 11/27/2021 Date of next office visit : 05/29/2022 Last 2 Encounter Wt Readings: Date: Wt: 11/27/2021 64.4 kg (142 lb) 05/29/2021 69.4 kg (153 lb) Please advise. Cami Pagan Pss documented in this encounter [facility] 02-25-2022 Miscellaneous Notes Patient has been identified by name and date of : Yes Requested Prescriptions Pending Prescriptions Disp Refills montelukast (SINGULAIR) 10 mg tablet 30 tablet 2 Sig: Take 1 tablet by mouth daily at bedtime. WERNER-11/27/21 Labs-12/10/21 NOV-05/29/22 med filled 11/19/21 RX INSTRUCTIONS: Patient aware RX will be sent to pharmacy. No need to notify patient. Shea Brooks Pss documented in this encounter [facility] 12-18-2021 Miscellaneous Notes Phoned patient and given provider's message below with verbalized understanding. Patient wrote instructions down. Please inform patient that her bone density shows IMPRESSION: Osteopenia in the lumbar spine, right hip and bilateral femoral necks. BMD is showing some beginning bone mass loss (osteopenia), which may increase the risk of insufficiency fractures. I suggest 1200-1500mg of Calcium carbonate into 2 doses daily as well as at least 2000 units of Vitamin D3 daily. Weight bearing exercise, if not already doing, and f/u exam in 2 years for bone density. Brandon Boland DO documented in this encounter [facility] 12-10-2021 History of Present illness Narrative Radiology Service Progress Note PATIENT NAME: Shea Mclean DATE OF SERVICE: December 10, 2021 TIME: 1:05 PM PATIENT IDENTITY VERIFICATION COMPLETED USING TWO (2) IDENTIFIERS: Name and Date of confirmed by patient verbally. FALL SCREENING: Has the patient had 2 falls in the last year or 1 fall with injury or currently using an Ambulatory Assistive Device (Walker, Cane, Wheelchair, Crutches, etc.)? No PATIENT GENDER DATA: Female. status: : No status: NO. PATIENT RELEVANT IMPLANT DATA REVIEWED: Not Applicable RADIOLOGY DEPARTMENT: Bone Density PERIPHERAL IV DATA: Not applicable SIGNED BY: RT Isaac(R) December 10, 2021 1:05 PM documented in this encounter [facility] 11-27-2021 History of Present illness Narrative CC: Shea Mclean is a 66 year old female who presents to the office for follow up HPI: Chronic allergies, severe, on immunotherapy at ENT office, has caused her to miss work since was causing such severe sinus pressure and ear pressure etc in the past. Wanting to try to return to work this next week if able. HTN, has been stable, no CP or dyspnea or dizziness/LH or edema, taking lisinopril as prescribed. Hasn't had her bone density completed yet. Did complete her IFOBT which was normal., not interested in colonoscopy PAST MEDICAL HISTORY Diagnosis Date Allergic rhinitis, cause unspecified on immunotherapy Essential hypertension Liver lesion 07/2014 hemangiomas and cysts, repeat MRI in PAST SURGICAL HISTORY Procedure Laterality Date BX BREAST W/DEVICE 1ST LESION STEREOTACTIC GUID Right 09-14-15 Current Outpatient Medications Medication Sig montelukast (SINGULAIR) 10 mg tablet Take 1 tablet by mouth daily at bedtime. azelastine (ASTELIN) 0.1% nasal spray Use 1 Excel in each nostril twice daily. montelukast (SINGULAIR) 10 mg tablet Take 1 tablet by mouth daily at bedtime. lisinopril (ZESTRIL, PRINIVIL) 10 mg tablet Take 1 tablet by mouth once daily. naproxen (NAPROSYN) 500 mg tablet Take 1 tablet by mouth twice daily as needed (for pain/inflammation). Take with food. carBAMazepine ER (CARBATROL) 200 mg 12 hr capsule Take 200 mg by mouth twice daily. aspirin, enteric coated (ASPIRIN LOW DOSE) 81 mg EC tablet Take 1 tablet by mouth once daily. predniSONE (DELTASONE) 10 mg tablet Take 1 tablet by mouth once daily. for flare up of ear pain No current facility-administered medications for this visit. ALLERGIES Allergen Reactions Seasonal Allergies Other: See Comments Sinus pressure, rhinitis, sneezing. Social History Tobacco Use Smoking status: Never Smoker Smokeless tobacco: Never Used Vaping Use Vaping Use: Never used Substance Use Topics Alcohol use: No Drug use: No ROS: See HPI PE: BP 130/70 Pulse 80 Temp (Src) 97 (Left Tympanic) Resp 16 Wt 142 lb (64.4kg) LMP 02/21/2011 Gen: A&OX3, NAD, non-toxic appearing HEENT: PERRLA, EOMs intact b/l, nares without drainage, pharynx without erythema, exudate, lesions, or drainage. Uvula midline. EAC and TM normal b/l, wearing glasses Neck: No LAD, no thyromegaly, no meningismus. CV: RRR, no murmur,normal s1s2 Lungs: CTA b/l, no wheezing Skin:scattered angiomas and nevi No edema, normal pulses Abd: soft, NT, ND, normal BS, no masses ASSESSMENT/PLAN: 1. IFG (impaired fasting glucose) - ICD9: 790.21, ICD10: R73.01 (primary diagnosis) - recheck labs, continue healthy well balanced diet. - HGB A1C 2. Dyslipidemia - ICD9: 272.4, ICD10: E78.5 - to be determined upon return of lab results - Encouraged following a low fat, low cholesterol diet. - Discussed the benefits of regular aerobic exercise and weight loss. - LIPID PANEL BASIC 3. Vitamin D deficiency - ICD9: 268.9, ICD10: E55.9 - continue supplement, recheck labs - VITAMIN D 25 HYDROXY 4. Hypertension, essential - ICD9: 401.9, ICD10: I10 - good control - Encouraged dietary sodium restriction/DASH diet - Recommended regular aerobic exercise. - Recommend home blood pressure monitoring, to bring results in on next visit - Goal of BP <130/80 - COMP METABOLIC PANEL - CBC 5. Fatigue, unspecified type - ICD9: 780.79, ICD10: R53.83 - VITAMIN B12 BLOOD Brandon Boland DO Return if no improvement. Follow up with Brandon Boland DO. To ER if develops chest pain, shortness of breath Discussed risks, benefits, alternatives, and potential side effects of medications. Patient/Guardian expressed understanding and agreed with the plan. See patient instructions. Brandon Boland DO [address] [place] [address] THE LAST 2 WEEKS, HAVE YOU BEEN BOTHERED BY ANY OF THE FOLLOWING? - Little interest or pleasure in doing things 0 NOT AT ALL Feeling down, depressed, or hopeless 0 Trouble falling or staying asleep, or sleeping too much 0 Feeling tired or having little energy 0 Poor appetite or overeating 0 Feeling bad yourself-you are a failure or have let yourself or others 0 Trouble concentrating, like reading the paper or watching TV 0 Moving/speaking slowly (others notice) OR being more fidgety/restless 0 Thoughts that you would be better off or of hurting yourself 0 PHQ TOTAL SCORE = 0 PHQ problems effect on difficulty of work, home, and social activity: 1 - NOT DIFFICULT AT ALL documented in this encounter [facility] 11-19-2021 Miscellaneous Notes Patient has been identified by name and date of : Yes Pending Prescriptions Disp Refills MONTELUKAST 10 MG TABLET 30 tablet 2 Sig: Take 1 tablet by mouth daily at bedtime. TAO: No WERNER-05/29/21 Labs-06/12/21 NOV-11/27/21 med filled 05/07/21 RX INSTRUCTIONS: Patient aware RX will be sent to pharmacy. No need to notify patient. Delaney Knight documented in this encounter [facility] 09-27-2021 Miscellaneous Notes Pharmacy verified in [facility] Patient has been identified by name and date of : Yes Patient aware RX will be sent to pharmacy. No need to notify patient. Patient phones for refill(s): Pending Prescriptions Disp Refills AZELASTINE 137 MCG (0.1 %) NASAL SPRAY AEROSOL Sig: Use 1 Excel in each nostril twice daily. TAO: No Date of last office visit : 05/29/2021 Date of next office visit : 11/27/2021 Last 2 Encounter Wt Readings: Date: Wt: 05/29/2021 69.4 kg (153 lb) 11/22/2020 71.7 kg (158 lb) Please advise. Cami Pagan Pss documented in this encounter [facility] Evaluation note Diagnosis Chronic otitis media of both ears with effusion [facility] Diagnosis Encounter for screening mammogram for breast cancer [facility] Diagnosis Seasonal allergic rhinitis due to pollen [facility] Diagnosis IFG (impaired fasting glucose)- Primary Impaired fasting glucose Dyslipidemia Other and unspecified hyperlipidemia Vitamin D deficiency Unspecified vitamin D deficiency Hypertension, essential Unspecified essential hypertension Fatigue, unspecified type [facility] noteNo assessment information availableWDay[facility] Work Phone: Evaluation note* Diagnosis Post-menopausal Asymptomatic postmenopausal status (age-related) (natural) [facility] Seasonal allergic rhinitis due to pollen [facility] Diagnosis Essential hypertension, benign Chronic otitis media of both ears with effusion [facility] Diagnosis Essential hypertension, benign- Primary IFG (impaired fasting glucose) Impaired fasting glucose Dyslipidemia Other and unspecified hyperlipidemia Vitamin D deficiency Unspecified vitamin D deficiency Hypertension, essential Unspecified essential hypertension Fatigue, unspecified type Need for pneumococcal vaccination Need for prophylactic vaccination against streptococcus pneumoniae (pneumococcus) Screening for colon cancer Special screening for malignant neoplasms, colon [facility] Diagnosis Elevated alkaline phosphatase in - Primary Other specified conditions originating in the period Alkaline phosphatase elevation Other nonspecific abnormal serum enzyme levels [facility] Diagnosis Encounter for screening mammogram for breast cancer [facility] Diagnosis Chronic otitis media of both ears with effusion Seasonal allergic rhinitis due to pollen [facility] Diagnosis Essential hypertension, benign- Primary IFG (impaired fasting glucose) Impaired fasting glucose Dyslipidemia Other and unspecified hyperlipidemia Vitamin D deficiency Unspecified vitamin D deficiency Fatigue, unspecified type [facility] Diagnosis Abnormal screening mammogram- Primary Abnormal mammogram, unspecified [facility] Diagnosis Seasonal allergic rhinitis due to pollen [facility] Diagnosis Sinus congestion- Primary Other diseases of nasal cavity and sinuses [facility]* Diagnosis Abnormal ultrasound of breast- Primary Other (abnormal) findings on radiological examination of breast Abnormal mammogram Abnormal mammogram, unspecified [facility] Diagnosis Need for vaccination- Primary Need for prophylactic vaccination and inoculation against unspecified single disease [facility] Diagnosis Abnormal ultrasound of breast- Primary Other (abnormal) findings on radiological examination of breast [facility] Diagnosis Abnormal mammogram- Primary Abnormal mammogram, unspecified [facility] Diagnosis Chronic otitis media of both ears with effusion [facility] Diagnosis Seasonal allergic rhinitis due to pollen [facility] Diagnosis Abnormal screening mammogram Abnormal mammogram, unspecified [facility]* Diagnosis Well adult exam- Primary Routine general medical examination at a [facility] care facility Screening for colon cancer Special screening for malignant neoplasms, colon Dyslipidemia Other and unspecified hyperlipidemia IFG (impaired fasting glucose) Impaired fasting glucose Vitamin D deficiency Unspecified vitamin D deficiency Fatigue, unspecified type Hypertension, essential Unspecified essential hypertension Need for RSV vaccination Need for prophylactic vaccination and inoculation against respiratory syncytial virus [facility] Diagnosis Seasonal allergic rhinitis due to pollen [facility] Diagnosis Chronic otitis media of both ears with effusion [facility] Diagnosis Hypertension, essential- Primary Unspecified essential hypertension Liver hemangioma Hemangioma of intra-abdominal structures IFG (impaired fasting glucose) Impaired fasting glucose Dyslipidemia Other and unspecified hyperlipidemia Encounter for screening mammogram for malignant neoplasm of breast Other screening mammogram Vitamin D deficiency Unspecified vitamin D deficiency Fatigue, unspecified type documented in this encounter [facility]* Diagnosis Encounter for screening mammogram for malignant neoplasm of breast Other screening mammogram [facility] Diagnosis Hypertension, essential- Primary Unspecified essential hypertension Need for influenza vaccination Need for prophylactic vaccination and inoculation against influenza Need for COVID-19 vaccine Dyslipidemia Other and unspecified hyperlipidemia Vitamin D deficiency Unspecified vitamin D deficiency IFG (impaired fasting glucose) Impaired fasting glucose Neck pain Cervicalgia Acute midline low back pain without sciatica documented in this encounter [facility] note* Diagnosis Essential hypertension, benign Seasonal allergic rhinitis due to pollen documented in this encounter [facility] note* Diagnosis Hypertension, essential- Primary Unspecified essential hypertension Encounter for screening mammogram for malignant neoplasm of breast Other screening mammogram Disorder of bone and cartilage Disorder of bone and cartilage, unspecified Dyslipidemia Other and unspecified hyperlipidemia Vitamin D deficiency Unspecified vitamin D deficiency IFG (impaired fasting glucose) Impaired fasting glucose Liver hemangioma Hemangioma of intra-abdominal structures Lightheaded Dizziness and giddiness Fatigue, unspecified type documented in this encounter [facility] for referral (narrative)* Diagnostic Procedure Only (Routine) - Pending Review Specialty Diagnoses / Procedures Referred By Gera toribio Referred To Contact [facility] Diagnoses Encounter for screening mammogram for breast cancer Procedures NERY SCREENING W THUY SCREENING DIGITAL BREAST TOMOSYNTHESIS BI SCREENING MAMMOGRAPHY BI 2-VIEW BREAST INC Brandon Latif DO [address] [place] [address] [facility] [address] [place] [address] Referral ID Status Reason Start Date Expiration Date Visits Requested Visits Authorized [id number] Pending Review Auto-Generat ed Referral 10/03/2021 11/02/2022 1 1 [facility] for referral (narrative)* Diagnostic Procedure Only (Routine) - Pending Review Specialty Diagnoses / Procedures Referred By Gera toribio Referred To Contact [facility] Diagnoses Alkaline phosphatase elevation Procedures US ABD RT UPPER QUADRANT US ABDOMINAL REAL TIME W/IMAGE LIMITED Brandon Boland, DO [address] [place] [address] [facility] Referral ID Status Reason Start Date Expiration Date Visits Requested Visits Authorized [id number] Pending Review Auto-Generat ed Referral 07/17/2022 08/16/2023 1 1 [facility] for referral (narrative)* Diagnostic Procedure Only (Routine) - Pending Review Specialty Diagnoses / Procedures Referred By Gera t Referred To Contact [facility] Diagnoses Encounter for screening mammogram for breast cancer Procedures NERY SCREENING W THUY SCREENING DIGITAL BREAST TOMOSYNTHESIS BI SCREENING MAMMOGRAPHY BI 2-VIEW BREAST INC CAD Brandon Boland DO [address] [place] [address] [facility] [address] [place] [address] Referral ID Status Reason Start Date Expiration Date Visits Requested Visits Authorized [id number] Pending Review Auto-Generat ed Referral 09/18/2022 10/18/2023 1 1 [facility] for referral (narrative)* Diagnostic Procedure Only (Routine) - Pending Review Specialty Diagnoses / Procedures Referred By Gera t Referred To Contact [facility] Diagnoses Abnormal screening mammogram Procedures US BREAST LTD RIGHT US BREAST UNI REAL TIME WITH IMAGE LIMITED Vy Dimas PA-C [address] [place] [address] [facility] [address] [place] [address] Referral ID Status Reason Start Date Expiration Date Visits Requested Visits Authorized [id number] Pending Review Auto-Generat ed Referral 12/09/2022 01/08/2024 1 1 * Diagnostic Procedure Only (Routine) - Pending Review Specialty Diagnoses / Procedures Referred By Contac t Referred To Contact [facility] Diagnoses Abnormal screening mammogram Procedures NERY DIAGNOSTIC RIGHT DIAGNOSTIC MAMMOGRAPHY COMPUTER-AIDED DETCJ Vy Harris PA-C [address] [place] [address] [facility] [address] [place] [address] Referral ID Status Reason Start Date Expiration Date Visits Requested Visits Authorized [id number] Pending Review Auto-Generat ed Referral 12/09/2022 01/08/2024 1 1 T [facility] for referral (narrative)* Diagnostic Procedure Only (Routine) - Closed Specialty Diagnoses / Procedures Referred By Gera toribio Referred To Contact [facility] Diagnoses Abnormal ultrasound of breast Procedures NERY DIAGNOSTIC RIGHT DIAGNOSTIC MAMMOGRAPHY COMPUTER-AIDED DETCJ Ewelina Sears MD [address] [place] [address] [facility] [address] [place] [address] Referral ID Status Reason Start Date Expiration Date V isits Requested Visits Authorized [id number] Closed Auto-Generate d Referral 02/24/2023 03/25/2024 1 1 [facility] for referral (narrative)* Diagnostic Procedure Only (Routine) - Authorized Specialty Diagnoses / Procedures [facility] Referred To Contact [facility] Diagnoses Abnormal mammogram Procedures NERY DIAGNOSTIC RIGHT DIAGNOSTIC MAMMOGRAPHY COMPUTER-AIDED DETC Ewelina Sears MD [address] [facility] [place] [address] [facility] [address] [place] [address] Referral ID Status Reason Start Date Expiration Date Visits Requested Visits Authorized [id number] Authorized Auto-Generat ed Referral 03/11/2023 04/09/2024 1 1 [facility] for referral (narrative)* Diagnostic Procedure Only (Routine) - Authorized Specialty Diagnoses / Procedures Referred By Patyac t Referred To Contact [facility] Diagnoses Encounter for screening mammogram for malignant neoplasm of breast Procedures NERY SCREENING W THUY SCREENING DIGITAL BREAST TOMOSYNTHESIS BI SCREENING MAMMOGRAPHY BI 2-VIEW BREAST INC CAD BolandBrandon nieto Isabel, DO [address] [place] [address] [facility] [address] [place] [address] Referral ID Status Reason Start Date Expiration Date Visits Requested Visits Authorized [id number] Authorized Auto-Generat ed Referral 12/02/2023 12/31/2024 1 1 [facility] for referral (narrative)* Diagnostic Procedure Only (Routine) - Closed Specialty Diagnoses / Procedures Referred By Gera t Referred To Contact [facility] Diagnoses Encounter for screening mammogram for malignant neoplasm of breast Procedures NERY SCREENING W THUY SCREENING DIGITAL BREAST TOMOSYNTHESIS BI SCREENING MAMMOGRAPHY BI 2-VIEW BREAST INC CAD Brandon Boland, DO [address] [place] [address] [facility] [address] [place] [address] Referral ID Status Reason Start Date Expiration Date V isits Requested Visits Authorized [id number] Closed Auto-Generate d Referral 12/02/2023 12/31/2024 1 1 [facility] [place] for visit Narrative* Diagnostic Procedure Only (Routine) - Closed Specialty Diagnoses / Procedures Referred By Contac t Referred To Contact [facility] Diagnoses Abnormal screening mammogram Procedures NERY DIAGNOSTIC RIGHT DIAGNOSTIC MAMMOGRAPHY COMPUTER-AIDED DETCJ UNI Vy Dimas PA-C [address] [place] [address] [facility] [address] [place] [address] Referral ID Status Reason Start Date Expiration Date V isits Requested Visits Authorized [id number] Closed Auto-Generate d Referral 12/09/2022 01/08/2024 [facility] Diagnostic Procedure Only (Routine) - Closed Specialty Diagnoses / Procedures Referred By Contac t Referred To Contact [facility] Diagnoses Encounter for screening mammogram for malignant neoplasm of breast Procedures NERY SCREENING W THUY SCREENING DIGITAL BREAST TOMOSYNTHESIS BI SCREENING MAMMOGRAPHY BI 2-VIEW BREAST INC BRIANNE TorreBolandBrandon, DO [address] [place] [address] [facility] [address] [place] [address] Referral ID Status Reason Start Date Expiration Date V isits Requested Visits Authorized [id number] Closed Auto-Generate d Referral 12/02/2023 12/31/2024 1 1 [facility] Chief Complaint and Reason for Visit Chief Complaint EORDER Family History No Family History Records Found Relationship Condition Age at Onset Recorded Date/T bhavin father Malignant neoplasm Unknown mother Cardiac disease Unknown Coronary artery disease Unknown Hypertension Unknown Summary Purpose Advance Directives No Advanced Directives Records FoundNo Advanced Directives Records Found Additional Source Comments Source Comments (unrecognize d section and content) In the event this informatio n is protected by the Federal Confidentiality of Alcohol and Drug Abuse Patient Records regulations: The Federal rules restrict any use of the information to criminally investigate or prosecute any alcohol or drug abuse patient.[facility] HospitalIn the event this information is protected by the Federal Confidentiality of Alcohol and Drug Abuse Patient Records regulations: The Federal rules restrict any use of the information to criminally investigate or prosecute any alcohol or drug abuse patient.[facility] HospitalIn the event this information is protected by the Federal Confidentiality of Alcohol and Drug Abuse Patient Records regulations: The Federal rules restrict any use of the information to criminally investigate or prosecute any alcohol or drug abuse patient.[facility] HospitalIn the event this information is protected by the Federal Confidentiality of Alcohol and Drug Abuse Patient Records regulations: The Federal rules restrict any use of the information to criminally investigate or prosecute any alcohol or drug abuse patient.[facility] HospitalIn the event this information is protected by the Federal Confidentiality of Alcohol and Drug Abuse Patient Records regulations: The Federal rules restrict any use of the information to criminally investigate or prosecute any alcohol or drug abuse patient.[facility] HospitalIn the event this information is protected by the Federal Confidentiality of Alcohol and Drug Abuse Patient Records regulations: The Federal rules restrict any use of the information to criminally investigate or prosecute any alcohol or drug abuse patient.[facility] HospitalIn the event this information is protected by the Federal Confidentiality of Alcohol and Drug Abuse Patient Records regulations: The Federal rules restrict any use of the information to criminally investigate or prosecute any alcohol or drug abuse patient.[facility] HospitalIn the event this information is protected by the Federal Confidentiality of Alcohol and Drug Abuse Patient Records regulations: The Federal rules restrict any use of the information to criminally investigate or prosecute any alcohol or drug abuse patient.[facility] HospitalIn the event this information is protected by the Federal Confidentiality of Alcohol and Drug Abuse Patient Records regulations: The Federal rules restrict any use of the information to criminally investigate or prosecute any alcohol or drug abuse patient.[facility] HospitalIn the event this information is protected by the Federal Confidentiality of Alcohol and Drug Abuse Patient Records regulations: The Federal rules restrict any use of the information to criminally investigate or prosecute any alcohol or drug abuse patient.[facility] HospitalIn the event this information is protected by the Federal Confidentiality of Alcohol and Drug Abuse Patient Records regulations: The Federal rules restrict any use of the information to criminally investigate or prosecute any alcohol or drug abuse patient.[facility] HospitalIn the event this information is protected by the Federal Confidentiality of Alcohol and Drug Abuse Patient Records regulations: The Federal rules restrict any use of the information to criminally investigate or prosecute any alcohol or drug abuse patient.[facility] HospitalIn the event this information is protected by the Federal Confidentiality of Alcohol and Drug Abuse Patient Records regulations: The Federal rules restrict any use of the information to criminally investigate or prosecute any alcohol or drug abuse patient.[facility] HospitalIn the event this information is protected by the Federal Confidentiality of Alcohol and Drug Abuse Patient Records regulations: The Federal rules restrict any use of the information to criminally investigate or prosecute any alcohol or drug abuse patient.[facility] HospitalIn the event this information is protected by the Federal Confidentiality of Alcohol and Drug Abuse Patient Records regulations: The Federal rules restrict any use of the information to criminally investigate or prosecute any alcohol or drug abuse patient.[facility] HospitalIn the event this information is protected by the Federal Confidentiality of Alcohol and Drug Abuse Patient Records regulations: The Federal rules restrict any use of the information to criminally investigate or prosecute any alcohol or drug abuse patient.[facility] HospitalIn the event this information is protected by the Federal Confidentiality of Alcohol and Drug Abuse Patient Records regulations: The Federal rules restrict any use of the information to criminally investigate or prosecute any alcohol or drug abuse patient.[facility] HospitalIn the event this information is protected by the Federal Confidentiality of Alcohol and Drug Abuse Patient Records regulations: The Federal rules restrict any use of the information to criminally investigate or prosecute any alcohol or drug abuse patient.[facility] HospitalIn the event this information is protected by the Federal Confidentiality of Alcohol and Drug Abuse Patient Records regulations: The Federal rules restrict any use of the information to criminally investigate or prosecute any alcohol or drug abuse patient.[facility] HospitalIn the event this information is protected by the Federal Confidentiality of Alcohol and Drug Abuse Patient Records regulations: The Federal rules restrict any use of the information to criminally investigate or prosecute any alcohol or drug abuse patient.[facility] HospitalIn the event this information is protected by the Federal Confidentiality of Alcohol and Drug Abuse Patient Records regulations: The Federal rules restrict any use of the information to criminally investigate or prosecute any alcohol or drug abuse patient.[facility] HospitalIn the event this information is protected by the Federal Confidentiality of Alcohol and Drug Abuse Patient Records regulations: The Federal rules restrict any use of the information to criminally investigate or prosecute any alcohol or drug abuse patient.[facility] HospitalIn the event this information is protected by the Federal Confidentiality of Alcohol and Drug Abuse Patient Records regulations: The Federal rules restrict any use of the information to criminally investigate or prosecute any alcohol or drug abuse patient.[facility] HospitalIn the event this information is protected by the Federal Confidentiality of Alcohol and Drug Abuse Patient Records regulations: The Federal rules restrict any use of the information to criminally investigate or prosecute any alcohol or drug abuse patient.[facility] HospitalIn the event this information is protected by the Federal Confidentiality of Alcohol and Drug Abuse Patient Records regulations: The Federal rules restrict any use of the information to criminally investigate or prosecute any alcohol or drug abuse patient.[facility] HospitalIn the event this information is protected by the Federal Confidentiality of Alcohol and Drug Abuse Patient Records regulations: The Federal rules restrict any use of the information to criminally investigate or prosecute any alcohol or drug abuse patient.[facility] HospitalIn the event this information is protected by the Federal Confidentiality of Alcohol and Drug Abuse Patient Records regulations: The Federal rules restrict any use of the information to criminally investigate or prosecute any alcohol or drug abuse patient.[facility] HospitalIn the event this information is protected by the Federal Confidentiality of Alcohol and Drug Abuse Patient Records regulations: The Federal rules restrict any use of the information to criminally investigate or prosecute any alcohol or drug abuse patient.[facility] HospitalIn the event this information is protected by the Federal Confidentiality of Alcohol and Drug Abuse Patient Records regulations: The Federal rules restrict any use of the information to criminally investigate or prosecute any alcohol or drug abuse patient.[facility] HospitalIn the event this information is protected by the Federal Confidentiality of Alcohol and Drug Abuse Patient Records regulations: The Federal rules restrict any use of the information to criminally investigate or prosecute any alcohol or drug abuse patient.[facility] HospitalIn the event this information is protected by the Federal Confidentiality of Alcohol and Drug Abuse Patient Records regulations: The Federal rules restrict any use of the information to criminally investigate or prosecute any alcohol or drug abuse patient.[facility] HospitalIn the event this information is protected by the Federal Confidentiality of Alcohol and Drug Abuse Patient Records regulations: The Federal rules restrict any use of the information to criminally investigate or prosecute any alcohol or drug abuse patient.[facility] HospitalIn the event this information is protected by the Federal Confidentiality of Alcohol and Drug Abuse Patient Records regulations: The Federal rules restrict any use of the information to criminally investigate or prosecute any alcohol or drug abuse patient.[facility] HospitalIn the event this information is protected by the Federal Confidentiality of Alcohol and Drug Abuse Patient Records regulations: The Federal rules restrict any use of the information to criminally investigate or prosecute any alcohol or drug abuse patient.[facility] HospitalIn the event this information is protected by the Federal Confidentiality of Alcohol and Drug Abuse Patient Records regulations: The Federal rules restrict any use of the information to criminally investigate or prosecute any alcohol or drug abuse patient.[facility] HospitalIn the event this information is protected by the Federal Confidentiality of Alcohol and Drug Abuse Patient Records regulations: The Federal rules restrict any use of the information to criminally investigate or prosecute any alcohol or drug abuse patient.[facility] HospitalIn the event this information is protected by the Federal Confidentiality of Alcohol and Drug Abuse Patient Records regulations: The Federal rules restrict any use of the information to criminally investigate or prosecute any alcohol or drug abuse patient.[facility] HospitalIn the event this information is protected by the Federal Confidentiality of Alcohol and Drug Abuse Patient Records regulations: The Federal rules restrict any use of the information to criminally investigate or prosecute any alcohol or drug abuse patient.[facility] HospitalIn the event this information is protected by the Federal Confidentiality of Alcohol and Drug Abuse Patient Records regulations: The Federal rules restrict any use of the information to criminally investigate or prosecute any alcohol or drug abuse patient.[facility] HospitalIn the event this information is protected by the Federal Confidentiality of Alcohol and Drug Abuse Patient Records regulations: The Federal rules restrict any use of the information to criminally investigate or prosecute any alcohol or drug abuse patient.[facility] Reason for Visit (unrecogniz ed section and content) Reason Onset Date Comments Refill Request 09/27/2021 Reason Onset Date Comments Refill Request 11/19/2021 Reason Comments Follow Up 6 months Reason Comments Results Reason Onset Date Comments Refill Request 02/25/2022 Reason Onset Date Comments Refill Request 04/01/2022 Reason Comments Yearly Exam Reason Comments Results Reason Onset Date Comments Refill Request 09/25/2022 Reason Comments 6 Month Exam Reason Comments Results Reason Onset Date Comments Refill Request 01/06/2023 Reason Comments Cough Chest congestion x 3 days Reason Comments Consult Abnormal mammogram a nd ultrasound. Reason Comments Procedure Right breast biopsy Reason Comments Follow Up Right breast biopsy Reason Comments Refill Request Reason Onset Date Comments Refill Request 08/20/2023 Reason Onset Date Comments Refill Request 09/04/2023 Reason Comments 6 Month Exam Reason Onset Date Comments Refill Request 12/29/2023 Reason Onset Date Comments Refill Request 03/10/2024 Reason Onset Date Comments Follow Up Immunizations 05/05/2024 Flu vaccination Reason Onset Date Comments Refill Request 05/06/2024 Reason Onset Date Comments Refill Request 08/31/2024 Reason Comments 6 Month Exam Care Teams (unrecognized sec tion and content) Bleacher Lard Relationship Specialty Start Date End Date Brandon Boland, DO [address] [place] [address] PCP - General Family Practice 07/14/13 Bleacher Lard Relationship Specialty Start Date End Date Brandon Boland, DO [address] [place] [address] PCP - General Family Practice 07/14/13 Bleacher Lard Relationship Specialty Start Date End Date Brandon Boland, DO [address] [place] [place] [address] PCP - General Family Practice 07/14/13 Bleacher Lard Relationship Specialty Start Date End Date Brandon Boland, DO [address] [place] [place] [address] PCP - General Family Practice 07/14/13 Bleacher Lard Relationship Specialty Start Date End Date Brandon Boland, DO [address] [facility] [place] [address] PCP - General Family Practice 07/14/13 Bleacher Lard Relationship Specialty Start Date End Date Brandon Boland, DO [address] [place] [address] PCP - General Family Practice 07/14/13 Bleacher Lard Relationship Specialty Start Date End Date Brandon Boland, DO [address] [place] [address] PCP - General Family Medicine 07/14/13 Bleacher Lard Relationship Specialty Start Date End Date Brandon Boland, DO [address] [place] [address] PCP - General Family Medicine 07/14/13 Bleacher Lard Relationship Specialty Start Date End Date Brandon Boland, DO [address] [place] [address] PCP - General Family Medicine 07/14/13 Bleacher Lard Relationship Specialty Start Date End Date Brandon Boland, DO [address] [place] [address] PCP - General Family Medicine 07/14/13 Bleacher Lard Relationship Specialty Start Date End Date Brandon Boland, DO [address] [place] [address] PCP - General Family Medicine 07/14/13 Bleacher Lard Relationship Specialty Start Date End Date Brandon Boland, DO [address] [place] [address] PCP - General Family Medicine 07/14/13 Bleacher Lard Relationship Specialty Start Date End Date Brandon Boland, DO [address] [place] [address] PCP - General Family Medicine 07/14/13 Bleacher Lard Relationship Specialty Start Date End Date Brandon Boland, DO [address] [place] [address] PCP - General Family Medicine 07/14/13 Bleacher Lard Relationship Specialty Start Date End Date Brandon Boland DO [address] [place] [address] PCP - General Family Medicine 07/14/13 Bleacher Lard Relationship Specialty Start Date End Date Brandon Boland DO [address] [place] [address] PCP - General Family Medicine 07/14/13 Bleacher Lard Relationship Specialty Start Date End Date Brandon Boland DO [address] [place] [address] PCP - General Family Medicine 07/14/13 Bleacher Lard Relationship Specialty Start Date End Date Brandon Boland DO [address] [place] [address] PCP - General Family Medicine 07/14/13 Bleacher Lard Relationship Specialty Start Date End Date Brandon Boland DO [address] [place] [address] PCP - General Family Medicine 07/14/13 Bleacher Lard Relationship Specialty Start Date End Date Brandon Boland DO [address] [place] [address] PCP - General Family Medicine 07/14/13 Bleacher Lard Relationship Specialty Start Date End Date Brandon Boland DO [address] [place] [place] [address] PCP - General Family Medicine 07/14/13 Bleacher Lard Relationship Specialty Start Date End Date Brandon Boland DO [address] [place] [address] PCP - General Family Medicine 07/14/13 Bleacher Lard Relationship Specialty Start Date End Date Brandon Boland DO [address] [place] [address] PCP - General Family Medicine 07/14/13 Bleacher Lard Relationship Specialty Start Date End Date Brandon Boland DO [address] [place] [address] PCP - General Family Medicine 07/14/13 Bleacher Lard Relationship Specialty Start Date End Date Brandon Boland DO [address] [place] [address] PCP - General Family Medicine 07/14/13 Bleacher Lard Relationship Specialty Start Date End Date Brandon Boland DO [address] [place] [address] PCP - General Family Medicine 07/14/13 Bleacher Lard Relationship Specialty Start Date End Date Brandon Boland DO [address] [place] [address] PCP - General Family Medicine 07/14/13 Bleacher Lard Relationship Specialty Start Date End Date Brandon Boland DO [address] [place] [address] PCP - General Family Medicine 07/14/13 Bleacher Lard Relationship Specialty Start Date End Date Brandon Boland DO [address] [place] [address] PCP - General Family Medicine 07/14/13 Ana Neal APRN.[employer] [address] [place] [address] Track Repair Worker Family Medicine 06/06/24 Juanita Burton APRN.[employer]ER [address] [place] [address] [facility] 06/06/24 Bleacher Lard Relationship Specialty Start Date End Date Brandon Boland DO [address] [place], [place] [address] PCP - General Family Medicine 07/14/13 Juanita Burton APRN.[employer]ER [address] [place] [address] [facility] 06/06/24 Goals (unrecognized section and content) Goals may be documented in a n alternate section INFORMATION SOURCE (unrecogn ized section and content) DATE CREATED AUTHOR 03/07/2024 [facility] DATE CREATED AUTHOR AUTHOR'S ST[facility] 11/25/2024 [facility] FOR RECORDS PERTAINING TO PATIENTS WHO ARE OR HAVE BEEN ENROLLED IN A CHEMICAL DEPENDENCY/SUBSTANCEABUSE PROGRAM, SOME INFORMATION MAY BE OMITTED. This clinical summary was aggregated from multiple sources. Caution should be exercised in using it in the provision of clinical care. This summary normalizes information from multiple sources, and as a consequence, information in this document may materially change the coding, format and clinical context of patient data. In addition, data may be omitted in some cases. CLINICAL DECISIONS SHOULD BE BASED ON THE PRIMARY CLINICAL RECORDS. [employer] provides no warranty or guarantee of the accuracy or completeness of information in this document.
[2024-12-08] MEDS: Lidocaine 1% /Epi 1:100 (20ml) 20 ML Vial INFILT (00:33)
[2024-12-08] MEDS: BACITRACIN 15 GM Tube 1 APPLIC TOPICAL (00:33)
[2024-12-08] MEDS: Diphth,Pertuss(Acell),Tet Vac 0.5 ML Vial IM (00:33)
[2024-12-08 00:42] VITALS: BP 120/65; PULSE 70; RESP 14; TEMP 36.8; O2SAT 99
--- NOTE | 2024-12-08 01:48 | EX.ED.UPPERE ---
HPI History of Present Illness Chief Complaint: Laceration Informant: patient Narrative Narrative: 69-year-old female presenting to the emergency room with right forearm laceration. 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 She is unsure of exactly what she cut it on. Unsure of last tetanus. She states it stopped bleeding but then started bleeding again and is now swollen up. She denies any paresthesias or loss of function distally. She is not on anticoagulants but does note aspirin use. Tetanus Immunization: Unknown [facility] Medical History Vitamin D deficiency Environmental allergies Hypertension History of pneumonia Home Medications ?Medication ?Instructions ?Recorded ?Last Taken ?Type aspirin 81 mg tablet 81 mg PO DAILY 09/11/20 Unknown History cetirizine 10 mg tablet (Zyrtec) 10 mg PO DAILY 09/11/20 Unknown History guaifenesin 600 mg tablet, 600 mg PO BID 09/11/20 Unknown History extended release 12 hr (Mucinex) lisinopril 10 mg tablet 10 mg PO DAILY 09/11/20 Unknown History ofqibqwjjmqh-Ht-bdeh-minerals 1 tab PO DAILY 09/11/20 Unknown History (Multiple Vitamin, Womens tablet) cholecalciferol (vitamin D3) 1,250 1,250 mcg PO QMONTH #3 caps 12/03/21 Unknown Rx mcg (50,000 unit) capsule calcium carbonate (Calcium 600) 600 mg PO DAILY 06/04/22 Unknown History carbamazepine 200 mg tablet 200 mg PO BID #180 tabs 02/09/24 Unknown Rx Allergy/AdvReac Type Severity Reaction Status Date / Time No Known Allergies Allergy Verified 12/07/24 21:27 Family History Father Cancer Stomach Mother Heart disease CAD (coronary artery disease) Hypertension Social History Smoking Status: Never smoker Electronic Cigarette Use: not used second hand exposure: No alcohol intake: former substance use type: does not use jorge/moravian: Orthodox seatbelt use: always ROS ROS ED Constitutional Constitutional ED: Denies chills or weight loss Eyes Eyes: Denies change in vision or diplopia ENT ENT ED: Denies ear pain, rhinorrhea or sore throat Cardiovascular Cardiovascular: Denies chest pain, orthopnea, palpitations or racing heartbeat Respiratory/Chest Respiratory/Chest: Denies cough, dyspnea or orthopnea Gastrointestinal Gastrointestinal: Denies abdominal pain, diarrhea, nausea or vomiting Genitourinary Genitourinary ED: Denies dysuria, hematuria or urinary frequency Musculoskeletal Musculoskeletal: Denies arthralgias or myalgias Integumentary Reports other Details: Laceration ; Denies abscess or rash Neurologic Neurologic: Denies headache(s), paresthesias or weakness Psychiatric Psychiatric: Denies anxiety, depression, suicidal ideation or suicidal thoughts Endocrine Endocrinology: Denies polydipsia, polyphagia or polyuria Allergic/Immunologic Allergic/Immunologic ED: Denies mouth swelling, tongue swelling or urticaria EXAM Physical Exam Const Vital Signs: 12/07/24 21:27 12/08/24 00:42 Temperature 98.2 F 98.2 F Temperature Source Oral Pulse Rate 79 70 Respiratory Rate 18 14 Blood Pressure 181/88 H 120/65 Blood Pressure Mean 119 83 Pulse Ox 98 99 Oxygen Delivery Method Room Air Positive well nourished and well developed General Appearance ED: well developed HEENT Reports normocephalic, head/scalp atraumatic and moist mucous membranes Eyes PERRL and EOMs intact bilaterally Neck no lymphadenopathy, supple and no JVD Resp normal respiratory effort and clear to auscultation bilaterally Cardio regular rate, regular rhythm and no murmurs GI normal to inspection, nondistended, normoactive bowel sounds and non-tender Palpation: soft Back/Spine no CVA tenderness and normal ROM Extremity Extremity Narrative: See skin exam General Extremety ED: Negative for edema General Extremity: Negative for edema Neuro oriented x3 and CN's II-XII intact bilaterally Sensorium / Orientation: alert Motor Exam: strength 5/5 throughout Psych mental status grossly normal Mood & Affect: Negative for depressed or tearful Skin no rashes or lesions noted Skin Narrative: Lateral proximal right forearm demonstrates a linear 3 cm laceration with hematoma and surrounding ecchymosis. Neurovascularly she is intact. MDM MDM MDM Narrative Medical decision making narrative: Differential diagnosis includes but not limited to neurovascular injury laceration foreign body tendon injury The wound was locally anesthetized using 1% lidocaine with epinephrine. Hematoma was partially removed to provide adequate skin closure. 5 simple interrupted 3-0 Ethilon sutures were placed with good homeostasis and wound edge approximation. Wound was dressed with bacitracin and gauze by nursing. Tetanus was updated. Sutures will need to be removed in 10 days. Return if worsening or concerns History & Record Review Discussion w/independent historian: Patient Discharge Plan Triage Chief Complaint: Laceration ED Provider: Raman Medina Dx/Rx/DC Orders Clinical Impression: Forearm laceration Instructions: ED Laceration, All Closures Prescriptions: No Action lisinopril 10 mg tablet 10 mg PO DAILY cetirizine [Zyrtec] 10 mg tablet 10 mg PO DAILY aspirin 81 mg tablet 81 mg PO DAILY Multiple Vitamin, Womens Tablet 1 tab PO DAILY guaifenesin [Mucinex] 600 mg tablet extended release 12hr 600 mg PO BID cholecalciferol (vitamin D3) 1,250 mcg (50,000 unit) capsule 1,250 mcg PO QMONTH Qty: 3 1RF calcium carbonate [Calcium 600] 600 mg calcium (1,500 mg) tablet 600 mg PO DAILY carbamazepine 200 mg tablet 200 mg PO BID Qty: 180 3RF Primary Care Provider: Brandon Boland Referrals: [facility] [Provider Group] - 10 Day for suture removal Brandon Boland, [Primary Care Provider] - Activity Restrictions/Additional Instructions: Keep wound clean and covered while working. Antibiotic ointment like Neosporin once a day. Stitches will need to be removed in 10 days. Showering and using gentle soap and water is fine. Print Language: Divehi Disposition Disposition: Home, Self Care Discharge Date/Time: 12/08/24 00:50
== END 2024-12-08 00:50 | disposition home or self-care (01) ==
LOC: ED 12-08 00:19
PROVIDERS: Emergency Provider Emergency Medicine; PCP Student in an Organized Health Care Education/Training Program; Visit Provider Emergency Medicine
DX: S51.811A Laceration without foreign body of right forearm, initial encounter (principal); I10 Essential (primary) hypertension; Z79.82 Long term (current) use of aspirin; Z79.899 Other long term (current) drug therapy; Z23 Encounter for immunization; W26.8XXA Contact with other sharp object(s), not elsewhere classified, initial encounter; Y93.89 Activity, other specified; Y99.0 Civilian activity done for income or pay; Y92.89 Other specified places as the place of occurrence of the external cause
CPT/HCPCS: 12002; 90715; 99284

== ENCOUNTER → 2025-03-14 | Outpatient (CLI) | payer BC, SELFPAY ==
[2025-03-14 12:51] LABS: Carbamazepine (Tegretol) 9.2 ug/mL (4.0-12.0)
== END | disposition home or self-care (01) ==
LOC: MTLAB 09:34
PROVIDERS: PCP Student in an Organized Health Care Education/Training Program; Referring Provider Psychiatry & Neurology Neurology; Visit Provider Psychiatry & Neurology Neurology
DX: G50.0 Trigeminal neuralgia (principal)
CPT/HCPCS: 36415; 80156

== ENCOUNTER 2025-05-17 11:23 | Emergency (ER) | payer BC, SELFPAY ==
[2025-05-17 11:23] VITALS: BP 165/82; PULSE 95; RESP 16; TEMP 36.9; O2SAT 100; BMI 23.4
--- NOTE | 2025-05-17 11:38 | EKG12_ITS ---
Test Reason : CHEST TIGHTNESS Blood Pressure : */* mmHG Vent. Rate : 85 BPM Atrial Rate : 85 BPM P-R Int : 166 ms QRS Dur : 70 ms QT Int : 320 ms P-R-T Axes : 22 -1 45 degrees QTcB Int : 380 ms Normal sinus rhythm Possible Left atrial enlargement Borderline ECG Confirmed by IESHA RAMON MD ([id number]), news editor CRISTIANE JACINTO ([id number]) on 05/18/2025 6:50:25 AM Referred By: Confirmed By: IESHA RAMON MD
--- NOTE | 2025-05-17 11:38 | RAD_ITS ---
PROCEDURE: CHEST PA AND LATERAL 05/17/2025 REASON FOR EXAM: MIDSTERNAL CHEST PRESSURE TECHNIQUE: Procedure Code: RADCXR Modality: DX Procedure: CHEST PA AND LATERAL FINDINGS: The heart is normal in size. The lungs are clear. No acute osseous abnormalities. Dextroscoliosis. RAD/Chest PA and Lateral IMPRESSION: No acute cardiopulmonary abnormalities. Dextroscoliosis. Reading Location: [id number]
[2025-05-17 12:11] LABS: Hematocrit 46.8 % (37-47); Hemoglobin 16.3 g/dL (12.0-15.0); Immature Granulocytes Count 0.060 X10^3/uL (0.0-0.0); Mean Corp Hgb Conc 34.8 g/dL (32-36); Mean Corpuscular Volume 92.5 fL (81-99); Mean Platelet Vol. 8.3 fl (6.2-12.0); NRBC Flagged by Analyzer 0 % (0-5); Platelet Count 230 K/mm3 (150-450); RBC Distribution Width CV 11.9 % (11.6-14.6); RBC Distribution Width SD 39.5 fl (35.1-43.9); Red Blood Count 5.06 M/mm3 (4.2-5.4); White Blood Count 12.3 K/mm3 (4.4-11.0)
[2025-05-17 12:47] LABS: Troponin T High Sensitivity 9 ng/L (<=14)
[2025-05-17 13:13] LABS: AST(SGOT) 41 U/L (<=31); Alanine Aminotransfer ALT/SGPT 18 U/L (<=34); Albumin, Serum 4.2 g/dL (3.4-4.8); Alkaline Phosphatase 125 U/L (35-104); Anion Gap 14 (5-15); BUN 14 mg/dL (4-19); BUN/Creat Ratio 17.9 RATIO (10-20); Calcium,Total 9.2 mg/dL (7.6-11.0); Carbon Dioxide 22.6 mmol/L (21.0-32.0); Chloride 101 mmol/L (98-108); Estimated Creatinine Clearance 58.88 ml/min (50-250); Globulin 3.1 g/dL (2.2-4.2); Glucose 99 mg/dL (70-99); Potassium 5.5 mmol/L (3.3-5.1)
[2025-05-17 13:23] VITALS: BP 156/120; PULSE 82; RESP 18; O2SAT 97
[2025-05-17 14:47] LABS: Troponin T High Sens 2 HR 9 ng/L (<=14)
[2025-05-17 15:00] VITALS: BP 150/81; PULSE 81; O2SAT 99
--- NOTE | 2025-05-17 15:56 | EX.ED.DYSGE1 ---
HPI History of Present Illness Chief Complaint: Hypertension Detail of Chief Complaint: Sent from chiropractor because of elevated blood pressure. She also compla Informant: patient Onset/Context/Timing Onset: Today (With respect to the chest pressure.) and Weeks (With respect to elevated blood pressure.) Context: Sudden Onset Timing: Continuous Quality: Chest pressure Location: midsternal Current Severity: Mild Worsened by: Nothing Relieved by: Nothing Associated Symptoms Associated Symptoms: Shortness of breath with onset of chest pain Narrative Narrative: Patient is a 69-year-old woman. She has history of hyperglycemia, vitamin D deficiency and trigeminal neuralgia. She also has history of hypertension. She is on lisinopril and amlodipine. He is also on a aspirin a day. Patient has no known history of cardiac disease. She has no known history of VTE and no risk factors for VTE. Patient having mild discomfort at this time. She denies headache, visual, ocular auditory symptoms. She denies ringing or ears decreased hearing. She denies shortness of breath presently. She denies abdominal pain, nausea, vomit or diarrhea. Denies black or maroon-colored stool. She denies urologic symptoms. She denies neurologic symptoms. Prior similar symptoms: No Recent Illness/Hospitalization: No [facility] Medical History Vitamin D deficiency Environmental allergies Hypertension History of pneumonia Home Medications ?Medication ?Instructions ?Recorded ?Last Taken ?Type guaifenesin 600 mg tablet, 600 mg PO BID 09/11/20 05/16/25 History extended release 12 hr (Mucinex) clizswoxqlza-Np-ebgw-minerals 1 tab PO DAILY 09/11/20 05/17/25 History (Multiple Vitamin, Womens tablet) amlodipine 5 mg tablet 5 mg PO DAILY BLOOD PRESSURE 05/17/25 05/17/25 History aspirin 81 mg capsule 81 mg PO DAILY HEART 05/17/25 05/17/25 History azelastine 137 mcg (0.1 %) nasal 1 spray intranasal BID 05/17/25 05/17/25 History spray carbamazepine 200 mg tablet 200 mg PO BID NERVE PAIN 05/17/25 05/17/25 History lisinopril 40 mg tablet 40 mg PO DAILY BLOOD PRESSURE 05/17/25 05/17/25 History montelukast 10 mg tablet 10 mg PO QHS ALLERGIES 05/17/25 05/16/25 History Allergy/AdvReac Type Severity Reaction Status Date / Time No Known Allergies Allergy Verified 05/17/25 11:26 Family History Father Cancer Stomach Mother Heart disease CAD (coronary artery disease) Hypertension Social History Smoking Status: Never smoker Electronic Cigarette Use: not used second hand exposure: No alcohol intake: former substance use type: does not use jorge/islam: [employer] seatbelt use: always ROS ROS ED Constitutional Constitutional ED: Denies chills, fever(s), subjective or sweats Eyes Eyes: Denies blurry vision, change in vision or diplopia ENT ENT ED: Denies ear pain, rhinorrhea or sore throat Cardiovascular Cardiovascular: Reports chest pain; Denies orthopnea, palpitations, paroxysmal nocturnal dyspnea or racing heartbeat Respiratory/Chest Respiratory/Chest: Reports dyspnea; Denies cough, dyspnea on exertion, orthopnea or paroxysmal nocturnal dyspnea Gastrointestinal Gastrointestinal: Reports nausea; Denies abdominal pain, constipation, diarrhea, melena or vomiting Genitourinary Genitourinary ED: Denies dysuria, hematuria or urinary frequency Musculoskeletal Musculoskeletal: Denies arthralgias, back pain, myalgias or neck pain Integumentary Denies Abrasions or rash Neurologic Neurologic: Denies headache(s) or paresthesias Psychiatric Psychiatric: Denies anxiety or depression Hematologic/Lymphatic Hematologic/Lymphatic: Reports systems reviewed and no addt'l complaints, except as documented EXAM Physical Exam Const Vital Signs: 05/17/25 11:23 05/17/25 11:33 05/17/25 13:23 Temperature 98.4 F Temperature Source Oral Pulse Rate 95 82 Respiratory Rate 16 18 Respiratory Effort Normal Non-Labored Respiratory Pattern Normal Blood Pressure 165/82 H 156/120 H Blood Pressure Mean 109 132 Pulse Ox 100 97 Oxygen Delivery Method Room Air Room Air 05/17/25 15:00 Temperature Temperature Source Pulse Rate 81 Respiratory Rate Respiratory Effort Respiratory Pattern Blood Pressure 150/81 H Blood Pressure Mean 104 Pulse Ox 99 Oxygen Delivery Method Positive well nourished and well developed Constitutional Narrative: Pleasant elderly woman in no distress. Blood pressure is slightly elevated. Is not concerning. Vital signs are otherwise unremarkable. General Appearance ED: well developed and NAD HEENT Reports moist mucous membranes HEENT Narrative: Head is atraumatic and normocephalic. Ears normal. Nares patent. Posterior pharynx is normal. Uvula midline. No deviation tongue or protrusion. Eyes PERRL and EOMs intact bilaterally General Eye ED: Negative for pale conjunctiva or scleral icterus Neck no lymphadenopathy, supple and no JVD Resp normal respiratory effort and clear to auscultation bilaterally Cardio regular rate, regular rhythm, S1 normal heart sound, S2 normal heart sound and no murmurs GI normal to inspection, nondistended, normoactive bowel sounds, non-tender, non-distended and no masses; Negative for hepatosplenomegaly Back/Spine no CVA tenderness Extremity normal to inspection Extremity Narrative: There is no asymmetry, swelling, discoloration, leg vein distention, palpable cords or tenderness along the distribution of the deep venous system. General Extremety ED: Yes edema; Negative for tenderness General Extremity: edema Neuro oriented x3 and CN's II-XII intact bilaterally Neuro Narrative: Negative Babinski sign bilaterally. No clonus bilaterally. There is no dysmetria. Sensorium / Orientation: alert Motor Exam: strength 5/5 throughout Psych mental status grossly normal Skin no rashes or lesions noted, no wounds and skin turgor normal MDM MDM MDM Narrative Medical decision making narrative: Differential diagnosis includes cardiac versus noncardiac disease. Noncardiac would be pain of unknown etiology, GI etiology, pulmonary etiology. Will obtain EKG, chest x-ray and appropriate lab results. History & Record Review Additional record(s) reviewed:: Prior outpatient record (Outpatient carotid duplex report reviewed. This was obtained because of trigeminal neuralgia of right side of the face. She is seen by neurology Dr. Osorio for trigeminal neuralgia. His reports were reviewed), Prior ED visit and Prior labs Lab Data Attestation: I reviewed the patient's lab results. Lab results narrative: White count is slightly elevated. There is slight shift. There is no bandemia. H&H is unremarkable. Electrolyte panel is remarked for slightly elevated glucose of 125 with normal CO2 anion gap. First troponin 9. Second troponin 9. Delta 0. Labs: Laboratory Results - last 24 hr 05/17/25 05/17/25 12:00 14:08 WBC 12.3 H RBC 5.06 Hgb 16.3 H Hct 46.8 MCV 92.5 MCH 32.2 H MCHC 34.8 RDW Std Deviation 39.5 RDW Coeff of Norbert 11.9 Plt Count 230 MPV 8.3 Immature Gran % (Auto) 0.500 Neut % (Auto) 77.5 H Lymph % (Auto) 14.6 L [place] % (Auto) 5.6 Eos % (Auto) 0.9 Baso % (Auto) 0.9 Absolute Neuts (auto) 9.6 H Absolute Lymphs (auto) 1.80 Nucleated RBC % 0 Sodium 137 Potassium 5.5 H Chloride 101 Carbon Dioxide 22.6 Anion Gap 14 BUN 14 Creatinine 0.80 Estim Creat Clear Calc 58.88 Est GFR (MDRD) Non-Af 80 BUN/Creatinine Ratio 17.9 Glucose 99 Calcium 9.2 Total Bilirubin 0.46 AST 41 H ALT 18 Alkaline Phosphatase 125 H Troponin T High Sens 9 Troponin T Hi Sens 2 Hr 9 Total Protein 7.3 Albumin 4.2 Globulin 3.1 Albumin/Globulin Ratio 1.4 Radiography Chest X-Ray - ED: 2 View and Read by ED Physician (Cardiac silhouette and size normal. Lung parenchyma normal. Hilum is unremarkable. Osseous trucks reveal some chronic changes with no acute findings.) Diagnostic Testing: Clinical Impression(s) from Imaging Studies Chest X-Ray 05/17/25 11:38 IMPRESSION: No acute cardiopulmonary abnormalities. Dextroscoliosis. Reading Location: [address] Discharge Plan Triage Chief Complaint: Hypertension ED Provider: Jama Corbett Dx/Rx/DC Orders Clinical Impression: Chest pressure, Hypertension, Hyperglycemia Instructions: ED Chest Pain, Uncertain Cause, ED Hypertension, Established Prescriptions: No Action Multiple Vitamin, Womens Tablet 1 tab PO DAILY guaifenesin [Mucinex] 600 mg tablet extended release 12hr 600 mg PO BID amlodipine 5 mg tablet 5 mg PO DAILY montelukast 10 mg tablet 10 mg PO QHS azelastine 137 mcg (0.1 %) spray,non-aerosol 1 spray INTRANASAL BID lisinopril 40 mg tablet 40 mg PO DAILY aspirin 81 mg capsule 81 mg PO DAILY carbamazepine 200 mg tablet 200 mg PO BID Rx Instructions: Take 1-1/2 tablets orally every morning and 1 tablet every evening. Primary Care Provider: Brandon Boland Referrals: Brandon Boland DO [Primary Care Provider, Medical] - 1-2 Weeks Print Language: Macedonian Disposition Disposition: Home, Self Care
[2025-05-17 16:15] VITALS: BP 163/85; PULSE 80; RESP 18; TEMP 36.7; O2SAT 99
== END 2025-05-17 16:20 | disposition home or self-care (01) ==
PROVIDERS: Emergency Provider Emergency Medicine; PCP Student in an Organized Health Care Education/Training Program; Visit Provider Emergency Medicine
DX: I10 Essential (primary) hypertension (principal); R07.89 Other chest pain; Z79.899 Other long term (current) drug therapy; R73.9 Hyperglycemia, unspecified; Z79.82 Long term (current) use of aspirin
CPT/HCPCS: 71046; 80053; 84484; 85025; 93005; 99283; A4216